=== PATIENT | female | born 1980 | race Caucasian/White ===

== ENCOUNTER → 2016-05-26 | Outpatient (CLI) | payer MEDICARE, MEDICAID ==
[~2016-05-26] MED LIST: /BACL20TA OR; /BUSP5TA OR; /DULO30CA OR; /ESOM40CA PO; /FENO14TA PO; /GLYB5TA OR; /METH500TA PO; /ROPI5TA PO; ABIL5TAB PO; AMBI10TA PO; AMBI5TAB PO; CIPR500T19 PO; COLA100C PO; COLA100C2 OR; COLA50CA3 PO; COMPOUND CREAM EXT; CRES20TA PO; DRIS50002 PO; EFFE37.527 PO; FENT12PA TOP; GABA300C2 PO; GABA400C PO; GABA800T PO; GLIP5TAB2 PO; GLUC1000 OR; GLYB25TA PO; GLYB5TAB5 PO; HUMUINJ IJ; HUMULIN NPH SQ; IBUP100SUS PO; IBUP600T OR; INSULANT SC; IRON65TA PO; LABE100T2 OR; LABE300T PO; LANTINJ4 SC; LEVA750T PO; LISI5TAB OR; MELO15TA3 PO; META800T82 PO; METF1000 PO; MORP15TA10 PO; MORP15TA2 PO; NEUR800T OR; NICO14PA EXT; OXYC15TA11 PO; OXYC15TA76 PO; PERC5TAB8 OR; PERC7.5T12 PO; PERCOCET PO; PNV OR; PROP20TA5 PO; PROZ20CA PO; REQU0.5T PO; SERO1TAB PO; SERO1TAB3 PO; SERO50TA PO; TRIA1CR TOP; TRIC145T PO; TYLENOL #3 OR; VICO5TAB OR; VICO5TAB PO; VICODINES TAB OR; WELCHOL PO; XANA0.5T PO; XANA1TAB2 PO; ZANA4TAB PO; [UNRECOGNIZED DRUG - OTHER] PO; ferrous sulfate PO; vibryd PO; zanax PO
[2016-05-26 11:03] LABS: BASO % 0.5 % (0.0-1.0); EOS # 0.3 K/mm3 (0.0-0.50); EOS % 3.1 % (0.0-3.0); LARGE UNSTAINED CELL # 0.1 K/mm3 (0.0-0.4); LARGE UNSTAINED CELL % 1.2 % (0.0-4.0); LYMPH # 2.2 K/mm3 (1.5-4.5); LYMPH % 22.2 % (24.0-44.0); MEAN CORPUSCULAR HEMOGLOBIN 26.2 pg (27.0-33.0); MEAN CORPUSCULAR HGB CONC 32.4 g/dl (32.0-36.5); MEAN CORPUSCULAR VOLUME 80.8 fl (80.0-96.0); MONO # 0.3 K/mm3 (0.0-0.8); MONO % 3.3 % (0.0-5.0); NEUTROPHILS % 69.8 % (36.0-66.0); PLATELET COUNT, AUTOMATED 228 k/mm3 (150-450); RED CELL DISTRIBUTION WIDTH 15.5 % (11.5-14.5)
[2016-05-26 11:25] LABS: ALBUMIN 3.5 GM/DL (3.2-5.2); ALKALINE PHOSPHATASE 99 U/L (45-117); ALT/SGPT 34 U/L (12-78); ANION GAP 8 MEQ/L (8-16); AST/SGOT 42 U/L (15-37); BILIRUBIN,TOTAL 0.4 MG/DL (0.2-1.0); BLOOD UREA NITROGEN 9 MG/DL (7-18); CALCIUM LEVEL 9.2 MG/DL (8.5-10.1); CARBON DIOXIDE LEVEL 29 MEQ/L (21-32); CHLORIDE LEVEL 103 MEQ/L (98-107); CREATININE FOR GFR 0.81 MG/DL (0.55-1.02); FERRITIN 11 NG/ML (8-252); GLOMERULAR FILTRATION RATE > 60.0 (>60); GLUCOSE, FASTING 249 MG/DL (70-105); PERCENT SATURATION 12.9 % (13.2-37.4); POTASSIUM SERUM 4.4 MEQ/L (3.5-5.1); SODIUM LEVEL 140 MEQ/L (136-145); TOTAL IRON BINDING CAPACITY 489 UG/DL (250-450)
== END ==
LOC: M LAB 10:38
PROVIDERS: ATTEND Physician Assistant
DX: E11.9 Type 2 diabetes mellitus without complications (principal); D50.9 Iron deficiency anemia, unspecified

== ENCOUNTER → 2016-06-11 | Outpatient (CLI) | payer MEDICARE, MEDICAID ==
--- NOTE | 2016-06-13 00:29 | ECWPNPC ---
PATIENT NAME: VASYL LEA : 1980 GENDER: FEMALE VISIT DATE: 06/11/2016 DISCHARGE DATE: 06/11/16 1131 VISIT LOCKED DATE TIME: PHYSICIAN: CAR PARADA RESOURCE: CAR PARADA REASON FOR APPOINTMENT 1. NECK/BACK HISTORY OF PRESENT ILLNESS TODAY'S VISIT: NOTES: HAS BEEN EXPERIENCING INCREASE IN PAIN RADIATING FROM NECK TO LOW BACK. ARMS FEEL WEAK AND IS DROPPING THINGS. SAW [facility] AND THEY ARE REQUESTING PT. NEED NEW REFERRAL TO THEM FOR THE BACK.RATES PAIN TODAY 9/10. DESCRIBES PAIN CONSTANT, ACHING, BURNING, TENDER, THROBBING SHOOTING AN SORE. PAIN IS CENTERED AT BASE OF NECK WITH RADIATION TO BOTH HANDS, AND CENTER LOW BACK WITH RADIATION TO BUTTUCKS AND DOWN BOTH LEGS TO FEET.. HISTORY OF PRESENT ILLNESS: PAIN THE PATIENT DESCRIBES THE PAIN... FALL RISK SCREENING: SCREENING :NO FALLS IN THE PAST YEAR CURRENT MEDICATIONS TAKING TRIAMCINOLONE ACETONIDE 0.1 % CREAM 1 APPLICATION TO AFFECTED AREA EXTERNALLY TWICE A DAY TAKING COLACE 100 MG CAPSULE 1 CAPSULE NEEDED ORALLY TWICE DAILY TAKING GABAPENTIN 800 MG TABLET 1 CAPSULE ORALLY THREE TIMES A DAY, NOTES: KENYAKER - NEURO TAKING SEROQUEL 50 MG TABLET 1 TABLET ORALLY TWICE A DAY, NOTES: 50 MG IN AM AND 100 MG AT NIGHT TAKING EFFEXOR XR 150 CAPSULE EXTENDED RELEASE 24 HOUR 1 CAPSULE WITH FOOD ORALLY ONCE A DAY TAKING ONE TOUCH ULTRA TEST STRIPS _ STRIPS DX: E11.9 _ TWICE DAILY AND NEEDED TAKING ONE TOUCH ULTRA TEST STRIPS DX 250.00 STRIPS DIRECTED - TWICE A DAY TAKING BD ULTRA-FINE PEN NEEDLES 32G 4MM _ DIRECTED DX: E11.9 WITH LANTUS PEN TAKING REQUIP 0.5 MG TABLET 3 TABS ORALLY ONCE A DAY BEFORE BEDTIME, NOTES: WALKER - PAIN TAKING FERROUS SULFATE 325 (65 FE) MG TABLET DELAYED RELEASE 1 TABLET ORALLY TWICE A DAY TAKING DRISDOL 77829 UNIT CAPSULE 1 CAPSULE ORALLY ONCE WEEKLY TAKING CRESTOR 40 MG TABLET 1 TABLET ORALLY ONCE A DAY TAKING GLIMEPIRIDE 1 MG TABLET 1 TABLET WITH BREAKFAST OR THE FIRST MAIN MEAL OF THE DAY ORALLY ONCE A DAY TAKING METFORMIN HCL 1000 MG TABLET 1 TABLET WITH MEALS ORALLY TWICE A DAY TAKING FENTANYL 12 MCG/HR PATCH 72 HOUR 1 PATCH TO SKIN TRANSDERMAL EVERY 72 HRS MDD=1 TAKING TIZANIDINE HCL 4 MG TABLET 1 TABLET NEEDED ORALLY EVERY 8 HRS TAKING OXYCODONE HCL 15 MG TABLET 1 TABLET NEEDED ORALLY EVERY 6 HRS MDD 4 TAKING LANTUS SOLOSTAR 100 UNIT/ML SOLUTION PEN-INJECTOR 70 UNITS SUBCUTANEOUS BEFORE BEDTIME TAKING HYDROXYZINE HCL 50 MG TABLET 75 MG NEEDED ORALLY EVERY 6 HRS NOT-TAKING TESSALON PERLES 100 MG CAPSULE 1 CAPSULE NEEDED ORALLY THREE TIMES A DAY NOT-TAKING VITAMIN D (ERGOCALCIFEROL) 35918 UNIT CAPSULE 1 CAPSULE ONCE WEEKLY ORALLY 4 WEEKS NOT-TAKING XANAX 0.5 MG TABLET 1 TABLET ORALLY Q12 HOURS PRN ANXIETY NOT-TAKING BACLOFEN 10 MG TABLET 1 TABLET WITH FOOD OR MILK ORALLY THREE TIMES A DAY, NOTES: NO LONGER TAKING MEDICATION LIST REVIEWED AND RECONCILED WITH THE PATIENT PAST MEDICAL HISTORY DM2 DEPRESSION/ANXIETY HYPERLIPIDEMIA CHRONIC BACK PAIN, FOLLOWS WITH PAINCLINIC, [facility] RECURRENT NEPHROLITHIASIS - URO MIGRAINES - 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 MORBID OBESITY NICOTINE DEP EKG 02/16 LAE, INCOMP RBBB CORDELIA 02/16 FEV1 2.65 FE DEF ANEMIA ALLERGIES PENICILLIN (FOR ALLERGIES USE ONLY): RASH: ALLERGY SOCIAL HISTORY GENERAL: TOBACCO USE ARE YOU A:NONSMOKER LEARNING BARRIERS / SPECIAL NEEDS ORIENTED TO PLAN OF CARE: PATIENT, PAIN MANAGEMENT PATIENT, ORIENTED TO PLAN OF CARE: PATIENT, PAIN MANAGEMENT PATIENT. NEW PATIENT PAIN DIARY TODAY'S VISITNOTES FROM 0-10, WHAT LEVEL IS YOUR PAIN TODAY?0 PAIN CLINIC PFS, CLERGY, PUBLIC HEALTH REFERRALS PFS REFERRAL NEEDED?NO CLERGY REFERRAL NEEDED?NO PUBLIC HEALTH REFERRAL NEEDED?NO WAS THE PROVIDER NOTIFIED OF ANY PERTINENT INFO?NO PFS REFERRAL NEEDED?NO CLERGY REFERRAL NEEDED?NO PUBLIC HEALTH REFERRAL NEEDED?NO WAS THE PROVIDER NOTIFIED OF ANY PERTINENT INFO?NO REVIEW OF SYSTEMS CONSTITUTIONAL: ANY CHANGE IN YOUR MEDICAL CONDITION? NO . CHILLS NO . FEVER NO . INFECTION: DO YOU HAVE NEW INFECTIONS? NO . DO YOU HAVE HISTORY OF MRSA? NO . MUSCULOSKELETAL: ANY NEW PATTERNS OF PAIN OR NUMBNESS? NO . GASTROENTEROLOGY: ANY NEW CHANGE IN BOWEL CONTROL? NO . GENITOURINARY: ANY NEW CHANGE IN BLADDER CONTROL? NO . IS THERE A CHANCE YOU COULD BE ? NO . HEMATOLOGY/LYMPH: DO YOU TAKE ANY BLOOD THINNERS? (FOR EXAMPLE- COUMADIN, PLAVIX, AGGRENOX, PLATEL, PRADAXA, OR XARELTO) NO . WHEN WAS YOUR LAST DOSE? DATE: TIME: . NEUROLOGY: HAVE YOU FALLEN IN THE PAST 6 MONTHS? NO . ANY NEW EXTREMITY NUMBNESS OR WEAKNESS? NO . CARDIOLOGY: DO YOU HAVE A PACEMAKER OR DEFIBRILLATOR? NO . RESPIRATORY: HAVE YOU BEEN SICK IN THE PAST WEEK? NO . FEVER NO . FLU LIKE SYMPTOMS? NO . COUGH NO . INTEGUMENTARY: DO YOU HAVE ANY RASHES OR OPEN SORES? NO . ALLERGIC/IMMUNO: ARE YOU ALLERGIC TO SHELLFISH OR IV DYE? NO . ANY NEW ALLERGIES? NO . PSYCHIATRIC: DO YOU HAVE THOUGHTS OF HURTING YOURSELF OR SOMEONE ELSE? NO . ARE YOU ABUSED, NEGLECTED, OR IN AN UNSAFE ENVIRONMENT? NO . ENDOCRINOLOGY: ARE YOU DIABETIC? NO . OTHER: DO YOU NEED ANY PRESCRIPTIONS? NO . IF YES, PLEASE LIST: ____ . ANY NEW PROBLEMS WITH YOUR MEDICATIONS? NO . WHEN DID YOU LAST EAT? ____ . WHEN DID YOU LAST DRINK? ____ . WHAT DID YOU LAST DRINK? ____ . NAME OF PERSON DRIVING YOU HOME? ____ . DO YOU HAVE ANY OTHER QUESTIONS OR CONCERNS NO . REVIEWED BY: PROVIDER: CAR SAEED . VITAL SIGNS WT 214.8 LBS, HT 66 IN, BMI 34.67 INDEX, BP 128/70 MM HG, HR 99 /MIN, RR 16 /MIN, TEMP 97.7 F, OXYGEN SAT % 99%, NA INITIALS SC 10:38, REVIEWED BY: ANTONY. EXAMINATION GENERAL EXAMINATION: PSYCHALERT , ORIENTED X 3 , APPROPRIATE MOOD AND AFFECT , TALKATIVE. LUNGS:BILATERAL MUSICAL WHEEZES, NO CRACKLES, BILATERAL RHONCHI. HEART:HEART RATE REGULAR. MUSCULOSKELETAL:MUSCLE STRENGTH TESTING 5/5 BILATERAL UPPER EXTREMITIES, AND 5-/5 IN BILATERAL LOWER EXTREMITIES. SLOW TO RISE TO STANDING POSITION. POSTURE STOOPED. GAIT SLOW, NONANTALGIC. POINT TENDERNESS OVER CERVICAL SPINOUS PROCESSES AND OVER LUBAR SPINOUS PROCESSES. , TRIGGER POINTS:, ELICITED WITH PALPATION OVER CERVICAL SPINOUS PROCESSES AND ACROSS THE TRAPEZIUS MUSCLES BILATERALLY. RESTRICTION OF ROM IS NOTED. ,. ASSESSMENTS MYALGIA - M79.1 (PRIMARY) RADICULOPATHY, LUMBOSACRAL REGION - M54.17 CHRONIC PRESCRIPTION OPIATE USE - Z79.899 CERVICALGIA - M54.2 OTHER CERVICAL DISC DISPLACEMENT AT C5-C6 LEVEL - M50.222 TREATMENT MYALGIA START CARISOPRODOL TABLET, 350 MG, 1 TABLET NEEDED, ORALLY, THREE TIMES A DAY MDD 3, 30 DAY(S), 90, REFILLS 1 REFILL FENTANYL PATCH 72 HOUR, 25 MCG/HR, 1 PATCH TO SKIN, TRANSDERMAL, EVERY 72 HRS MDD=1, 30 DAY(S), 10, REFILLS 0 TRIGGER POINT 3 + CAR ALFREDO 06/11/2016 10:50:38 AM > NECK, SHOULDER AND BACK NOTES: UTOX TODAY.,TRIGGER POINT INJECTION: YOUR EXPERIENCE MATERIAL WAS PRINTED. [facility] REASON:POST LAMINECTOMY NOW WITH INCREASING RADICULAR SYMPTOMS PROCEDURE CODES FA211 ESTABILISHED PATIENT [facility] CHARGE DISPOSITION & COMMUNICATION FOLLOW UP ONE MONTH ELECTRONICALLY SIGNED BY CHRISTOPHER GILLESPIE ON 06/12/2016 AT 06:38 PM EST DISCLAIMER : THIS IS A VISIT SUMMARY EXTRACTED FROM THE [employer] CHART. IT IS NOT A COPY OF THE [employer] PROGRESS NOTE. KAVON
== END ==
LOC: M PAIN 10:00
PROVIDERS: ATTEND Nurse Practitioner Family
DX: Z09 Encounter for follow-up examination after completed treatment for conditions other than malignant neoplasm (principal); G89.29 Other chronic pain; M79.1 Myalgia; M54.17 Radiculopathy, lumbosacral region; M50.222 Other cervical disc displacement at C5-C6 level; E11.9 Type 2 diabetes mellitus without complications; F32.9 Major depressive disorder, single episode, unspecified; F41.9 Anxiety disorder, unspecified; E78.5 Hyperlipidemia, unspecified; N20.0 Calculus of kidney; G43.909 Migraine, unspecified, not intractable, without status migrainosus; E66.9 Obesity, unspecified; D50.9 Iron deficiency anemia, unspecified; Z68.34 Body mass index [BMI] 34.0-34.9, adult; Z88.0 Allergy status to penicillin; Z79.01 Long term (current) use of anticoagulants; Z79.84 Long term (current) use of oral hypoglycemic drugs; Z79.891 Long term (current) use of opiate analgesic; Z79.899 Other long term (current) drug therapy; Z87.891 Personal history of nicotine dependence

== ENCOUNTER 2016-06-29 02:36 | Emergency (ER) | payer MEDICARE, MEDICAID ==
[~2016-06-29] VITALS: Ht 167.6 cm; Wt 98.0 kg
[~2016-06-29 02:36] MED LIST changes: -COLA100C PO; +COLA100C3 PO
[2016-06-29] MEDS ORDERED: PERCOCET 5MG/325MG TAB PO ONE (04:00)
--- NOTE | 2016-06-29 04:20 | REPUSA ---
HISTORY: Trauma. COMPARISON: Not provided. TECHNIQUE: Multiple thin section helically-acquired axially-displayed and helically acquired coronall y displayed computed tomographic images of the face are obtained from the mandible through the fronta l sinuses, with images obtained at soft tissue and bone window. 2D reformatted images were performed. FINDINGS: Soft tissue edema and swelling of the upper lid. Normal bony mineralization. No fractures. Normal orbits. Normal, clear paranasal sinuses. Normal oral and nasal cavities. Normal infratemporal fossa and deep parapharyngeal spaces with normal muscles of mastication. Normal parotid and submandibular glands. IMPRESSION: No acute bone pathology. Thank you for your kind referral of this patient
[2016-06-29 04:59] VITALS: BP 123/58
== END 2016-06-29 05:05 | disposition home or self-care (01) ==
LOC: M ED 03:19
DX: S00.83XA Contusion of other part of head, initial encounter (principal); W18.00XA Striking against unspecified object with subsequent fall, initial encounter; Y92.9 Unspecified place or not applicable; Y93.01 Activity, walking, marching and hiking; Y99.9 Unspecified external cause status; R42 Dizziness and giddiness; Z91.81 History of falling; Z79.899 Other long term (current) drug therapy; Z88.0 Allergy status to penicillin

== ENCOUNTER → 2016-09-23 | Outpatient (CLI) | payer MEDICARE, MEDICAID ==
[~2016-09-23] MED LIST changes: +BUPIVACAINE HCL 0.25% 10 ML VIAL As Ordered ONE; +BUPIVACAINE HCL 0.25% 30 ML VIAL As Ordered ONE; -COLA100C3 PO; +COLA100C5 PO; +CYCL10TA PO; -LEVA750T PO; +LEVA750T7 PO; +METF10004 PO; -REQU0.5T PO; +REQU1TAB15 PO; +TRIAMCINOLONE ACETONIDE SUSP 40 MG/ML VIAL (J3301) As Ordered ONE; -TRIC145T PO; +TRIC145T22 PO; +VICT18IN
--- NOTE | 2016-10-06 23:29 | ECWPNPC ---
PATIENT NAME: VASYL LEA : 1980 GENDER: FEMALE VISIT DATE: 09/23/2016 DISCHARGE DATE: 09/23/16 1001 VISIT LOCKED DATE TIME: PHYSICIAN: NHAN POWELL RESOURCE: NHAN POWELL REASON FOR APPOINTMENT 1. NECK AND BACK HISTORY OF PRESENT ILLNESS HISTORY OF PRESENT ILLNESS: PAIN THE PATIENT DESCRIBES THE PAIN... FALL RISK SCREENING: SCREENING :NO FALLS IN THE PAST YEAR CURRENT MEDICATIONS TAKING TRIAMCINOLONE ACETONIDE 0.1 % CREAM 1 APPLICATION TO AFFECTED AREA EXTERNALLY TWICE A DAY NEEDED, NOTES: NONE RECENTLY TAKING GABAPENTIN 800 MG TABLET 1 CAPSULE ORALLY THREE TIMES A DAY, NOTES: TRICKER - NEURO 09/23/16729 TAKING SEROQUEL 50 MG TABLET 1 TABLET ORALLY TWICE A DAY, NOTES: 50 MG IN AM AND 100 MG AT NIGHT 09/23/16729 TAKING EFFEXOR XR 150 CAPSULE EXTENDED RELEASE 24 HOUR 1 CAPSULE WITH FOOD ORALLY ONCE A DAY, NOTES: 09/23/16729 TAKING ONE TOUCH ULTRA TEST STRIPS _ STRIPS DX: E11.9 _ TWICE DAILY AND NEEDED TAKING ONE TOUCH ULTRA TEST STRIPS DX 250.00 STRIPS DIRECTED - TWICE A DAY TAKING BD ULTRA-FINE PEN NEEDLES 32G 4MM _ DIRECTED DX: E11.9 WITH LANTUS PEN TAKING REQUIP 0.5 MG TABLET 3 TABS ORALLY ONCE A DAY BEFORE BEDTIME, NOTES: WALKER - PAIN 09/22/16 2100 TAKING GLIMEPIRIDE 1 MG TABLET 1 TABLET WITH BREAKFAST OR THE FIRST MAIN MEAL OF THE DAY ORALLY ONCE A DAY, NOTES: 09/22/16729 TAKING METFORMIN HCL 1000 MG TABLET 1 TABLET WITH MEALS ORALLY TWICE A DAY, NOTES: 09/22/161799 TAKING HYDROXYZINE HCL 50 MG TABLET 75 MG NEEDED ORALLY EVERY 6 HRS, NOTES: 09/23/16729 TAKING CRESTOR 40 MG TABLET 1 TABLET ORALLY ONCE A DAY, NOTES: 09/22/161799 TAKING CYCLOBENZAPRINE HCL 10 MG TABLET 1 TABLET NEEDED ORALLY THREE TIMES A DAY, NOTES: 09/22/161799 TAKING FENTANYL 25 MCG/HR PATCH 72 HOUR 1 PATCH TO SKIN TRANSDERMAL EVERY 72 HRS MDD=1, NOTES: 09/22/161799 TAKING DRISDOL 24562 UNIT CAPSULE 1 CAPSULE ORALLY ONCE WEEKLY, NOTES: 09/21/16729 TAKING COLACE 100 MG CAPSULE 1 CAPSULE NEEDED ORALLY TWICE DAILY, NOTES: 2-3 DAYS AGO TAKING LANTUS SOLOSTAR 100 UNIT/ML SOLUTION PEN-INJECTOR 70 UNITS SUBCUTANEOUS BEFORE BEDTIME, NOTES: 2-3 DAYS AGO TAKING OXYCODONE HCL 15 MG TABLET 1 TABLET NEEDED ORALLY EVERY 6 HRS MDD 4, NOTES: 09/23/16 0730 TAKING EFFEXOR XR 37.5 MG CAPSULE EXTENDED RELEASE 24 HOUR 1 CAPSULE WITH FOOD ORALLY ONCE A DAY, NOTES: 09/23/16 0730 NOT-TAKING AQUAPHOR - OINTMENT DIRECTED EXTERNALLY BID NOT-TAKING DOXYCYCLINE MONOHYDRATE 100 MG CAPSULE 1 CAPSULE ORALLY EVERY 12 HRS MEDICATION LIST REVIEWED AND RECONCILED WITH THE PATIENT PAST MEDICAL HISTORY DM2 DEPRESSION/ANXIETY HYPERLIPIDEMIA CHRONIC BACK PAIN, FOLLOWS WITH PAINCLINIC, SMC RECURRENT NEPHROLITHIASIS - URO MIGRAINES - 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 MORBID OBESITY NICOTINE DEP EKG 02/16 LAE, INCOMP RBBB CORDELIA 02/16 FEV1 2.65 FE DEF ANEMIA ALLERGIES PENICILLIN (FOR ALLERGIES USE ONLY): RASH: ALLERGY ENVIRONMENTAL: NASAL CONGESTION: ALLERGY SURGICAL HISTORY CHOLECYSTECTOMY 2002 C SECTION 2 BACK SURGERY 12/2009 TUBAL LIGATION 2011 L ESWL - CARRIE 04/06/13 KIDNEY STONE 09/2014 SOCIAL HISTORY GENERAL: TOBACCO USE ARE YOU A:CURRENT SMOKER HOW MANY CIGARETTES A DAY DO YOU SMOKE?11-20 HOW SOON AFTER YOU WAKE UP DO YOU SMOKE YOUR FIRST CIGARETTE?WITHIN 5 MIN HOW OFTEN DO YOU SMOKE CIGARETTES?EVERY DAY PATIENT COUNSELED ON THE DANGERS OF TOBACCO USE AND URGED TO QUIT:05/27/2016 ARE YOU INTERESTED IN QUITTING?NOT READY TO QUIT COUNSELED THE PATIENT ON SMOKING EFFECTS, EDUCATION [id number]/22/2017 BMI CARE GOAL FOLLOW-UP ABOVE NORMAL BMI FOLLOW-UPDIETARY MANAGEMENT EDUCATION, GUIDANCE, AND COUNSELING ALCOHOL SCREENING DID YOU HAVE A DRINK CONTAINING ALCOHOL IN THE PAST YEAR?NO POINTS0 INTERPRETATIONNEGATIVE RECREATIONAL DRUG USE DRUG USE?NO CAFFEINE CAFFEINE USE?YES HOW OFTEN AND HOW MUCH? 2 CUPS PER DAY SEXUAL HX HAD SEX IN THE LAST 12 MONTHS (VAGINAL, ORAL, OR ANAL)?NO HAVE YOU EVER HAD AN STD?NO LMP:07/20/16 OCCUPATION: DISABLED. DIET: CARBOHYDRATE CONTROLLED. EXERCISE: NO REGULAR EXERCISE. MARITAL STATUS: . TENRIISM [id number] YAZIDISM LANGUAGE LANGUAGES SPOKEN:[employer] EDUCATION LEVEL OF EDUCATION:[employer] 8TH GRADE LEARNING BARRIERS / SPECIAL NEEDS CHANGE FROM LAST VISIT?NO BARRIERS TO LEARNING?YES COMMENTS READING HEARING IMPAIRED?NO VISION IMPAIRED?YES :CORRECTIVE LENSES COGNITIVELY IMPAIRED?NO READINESS TO LEARN?YES LEARNING PREFERENCES?YES :TAPES/VIDEOS, BOOKLETS, HANDOUTS, CLASSES, DEMONSTRATION/VERBAL INSTRUCTION, OTHER (PLEASE COMMENT) LEARNING CAPABILITIES PRESENT?YES EMOTIONAL BARRIERS?NO SPECIAL DEVICES?NO ENGINE REPAIRER SERVICE NEEDED?NO NEW PATIENT PAIN DIARY TODAY'S VISIT NOTES, FROM 0-10, WHAT LEVEL IS YOUR PAIN TODAY? 0. PAIN CLINIC PFS, CLERGY, PUBLIC HEALTH REFERRALS PFS REFERRAL NEEDED? NO, CLERGY REFERRAL NEEDED? NO, PUBLIC HEALTH REFERRAL NEEDED? NO, WAS THE PROVIDER NOTIFIED OF ANY PERTINENT INFO? NO, PFS REFERRAL NEEDED? NO, CLERGY REFERRAL NEEDED? NO, PUBLIC HEALTH REFERRAL NEEDED? NO, WAS THE PROVIDER NOTIFIED OF ANY PERTINENT INFO? NO. TRAVEL OUTSIDE US: NO. DOMESTIC VIOLENCE NONE. HOSPITALIZATION/MAJOR DIAGNOSTIC PROCEDURE SURGERY RELATED REVIEW OF SYSTEMS REVIEWED BY: PROVIDER: . CONSTITUTIONAL: ANY CHANGE IN YOUR MEDICAL CONDITION? NO . CHILLS NO . FEVER NO . INFECTION: DO YOU HAVE NEW INFECTIONS? NO . DO YOU HAVE HISTORY OF MRSA? NO . MUSCULOSKELETAL: ANY NEW PATTERNS OF PAIN OR NUMBNESS? NO . GASTROENTEROLOGY: ANY NEW CHANGE IN BOWEL CONTROL? NO . GENITOURINARY: ANY NEW CHANGE IN BLADDER CONTROL? NO . IS THERE A CHANCE YOU COULD BE ? NO . HEMATOLOGY/LYMPH: DO YOU TAKE ANY BLOOD THINNERS? (FOR EXAMPLE- COUMADIN, PLAVIX, AGGRENOX, PLATEL, PRADAXA, OR XARELTO) NO . WHEN WAS YOUR LAST DOSE? DATE: TIME: . NEUROLOGY: HAVE YOU FALLEN IN THE PAST 6 MONTHS? YES . ANY NEW EXTREMITY NUMBNESS OR WEAKNESS? NO . CARDIOLOGY: DO YOU HAVE A PACEMAKER OR DEFIBRILLATOR? NO . RESPIRATORY: HAVE YOU BEEN SICK IN THE PAST WEEK? NO . FEVER NO . FLU LIKE SYMPTOMS? NO . COUGH NO . INTEGUMENTARY: DO YOU HAVE ANY RASHES OR OPEN SORES? NO . ALLERGIC/IMMUNO: ARE YOU ALLERGIC TO SHELLFISH OR IV DYE? NO . ANY NEW ALLERGIES? NO . PSYCHIATRIC: DO YOU HAVE THOUGHTS OF HURTING YOURSELF OR SOMEONE ELSE? NO . ARE YOU ABUSED, NEGLECTED, OR IN AN UNSAFE ENVIRONMENT? NO . ENDOCRINOLOGY: ARE YOU DIABETIC? YES . OTHER: DO YOU NEED ANY PRESCRIPTIONS? NO . IF YES, PLEASE LIST: ____ . ANY NEW PROBLEMS WITH YOUR MEDICATIONS? NO . WHEN DID YOU LAST EAT? 2300 . WHEN DID YOU LAST DRINK? 0100 . WHAT DID YOU LAST DRINK? WATER . NAME OF PERSON DRIVING YOU HOME? ARIANNA LEA . DO YOU HAVE ANY OTHER QUESTIONS OR CONCERNS NO . VITAL SIGNS WT 203.4 LBS, HT 66 IN, BMI 32.83 INDEX, BP 123/69 MM HG, HR 103 /MIN, RR 18 /MIN, TEMP 97.8 F, OXYGEN SAT % 95%, NA INITIALS SC 08:56, REVIEWED BY: LS. ASSESSMENTS MYALGIA - M79.1 (PRIMARY) PROCEDURES PN TRIGGER POINT INJECTION WITH STEROIDS PRE PROCEDURE DIAGNOSIS 1. MYALGIA 2. PAIN AT BILATERAL THORACIC AREA AND BILATERAL LOW BACK AREA POST PROCEDURE DIAGNOSIS 1. MYALGIA 2. PAIN AT BILATERAL THORACIC AREA AND BILATERAL LOW BACK AREA PROCEDURE TRIGGER POINT INJECTION AT BILATERAL THORACIC AREA AND BILATERAL LOW BACK AREA SURGEON DR. NHAN POWELL CITY CLERK NONE ANESTHESIA LOCAL PRE PROCEDURE NOTE THE PATIENT HAS A HISTORY OF CHRONIC PAIN AT THE RIGHT AND LEFT THORACIC AREA AND RIGHT AND LEFT LOW BACK AREA. I EVALUATE THE PATIENT AND REVIEWED THE CHART. THERE IS EVIDENCE OF BANDS OF TISSUE WITH RESTRICTION OF MOVEMENT AND PRESENCE OF TRIGGER POINT AT THE AFFECTED AREA. I WENT OVER THE RISKS, ALTERNATIVES, AND BENEFITS ASSOCIATED WITH THIS PROCEDURE. THE PATIENT WOULD LIKE TO PROCEED AND GIVE CONSENT TO PERFORMED THE PROCEDURE. THE PATIENT DENIES UNEXPLAINABLE WEIGHT LOSS, FEVER, CHILLS, OR NEW CHANGES IN URINARY OR BOWEL CONTROL DESCRIPTION OF PROCEDURE THE PATIENT WAS BROUGHT TO THE PROCEDURE ROOM AND PLACED IN THE SITTING POSITION. THE AREA WAS CLEANED WITH ALCOHOL. THE PROCEDURE WAS DONE USING ASEPTIC STERILE TECHNIQUE. I CHECKED LATERALITY AND THE LEVEL WHERE THE PROCEDURE WAS GOING TO BE PERFORMED WITH THE PATIENT AND THE SUPPORTING STAFF AT THE MOMENT OF THE TIME OUT IN THE PROCEDURE ROOM. USING A 25-GAUGE NEEDLE, TRIGGER POINTS WERE INJECTED AT THE RIGHT AND LEFT THORACIC AREA AND RIGHT AND LEFT LOW BACK AREA WITH A TOTAL OF 40 ML OF BUPIVACAINE 0.25% AND KENALOG 40 MG. THERE WAS NO EVIDENCE OF BLOOD, PARESTHESIA OR CEREBROSPINAL FLUID DURING THE PROCEDURE. THE PATIENT WAS SENT TO THE RECOVERY ROOM. THE PATIENT WAS MOVING THE EXTREMITIES AND DOING WELL. THERE WAS NO COMPLICATION DURING THE PROCEDURE POST PROCEDURE NOTE THE PATIENT WILL BE SEEN IN A FOLLOW UP IN THE NEXT FEW WEEKS. INSTRUCTIONS WERE GIVEN, QUESTIONS WERE ANSWERED, AND THE PATIENT EXPRESSED UNDERSTANDING AND AGREES WITH THE PLAN. I, ART RATLIFF, DOCUMENTED THE ABOVE INFORMATION ACTING A SCRIBE FOR DR. POWELL. I HAVE REVIEWED THE ABOVE DOCUMENT, WRITTEN BY ART RATLIFF SCRIBEfrain AND I VERIFY THAT IT IS ACCURATE PROCEDURE CODES 58831 INJECT TRIGGER POINTS 3/> DISPOSITION & COMMUNICATION FOLLOW UP 3 WEEKS ELECTRONICALLY SIGNED BY NHAN POWELL MD ON 10/06/2016 AT 09:55 PM EDT DISCLAIMER : THIS IS A VISIT SUMMARY EXTRACTED FROM THE [employer] CHART. IT IS NOT A COPY OF THE [email or web address] PROGRESS NOTE. KAVON
== END ==
LOC: M PAIN 08:30
PROVIDERS: ATTEND Anesthesiology
DX: G89.29 Other chronic pain (principal); M79.1 Myalgia; E11.9 Type 2 diabetes mellitus without complications; F32.9 Major depressive disorder, single episode, unspecified; F41.9 Anxiety disorder, unspecified; E78.5 Hyperlipidemia, unspecified; G43.909 Migraine, unspecified, not intractable, without status migrainosus; E66.01 Morbid (severe) obesity due to excess calories; F17.210 Nicotine dependence, cigarettes, uncomplicated; D50.9 Iron deficiency anemia, unspecified; J30.9 Allergic rhinitis, unspecified; M51.17 Intervertebral disc disorders with radiculopathy, lumbosacral region; M50.10 Cervical disc disorder with radiculopathy, unspecified cervical region; Z88.0 Allergy status to penicillin; Z79.84 Long term (current) use of oral hypoglycemic drugs; Z79.891 Long term (current) use of opiate analgesic; Z79.4 Long term (current) use of insulin; Z79.899 Other long term (current) drug therapy
CPT/HCPCS: 20553; J3301

== ENCOUNTER → 2016-10-05 | Outpatient (CLI) | payer MEDICARE, MEDICAID ==
[~2016-10-05] MED LIST changes: -BUPIVACAINE HCL 0.25% 10 ML VIAL As Ordered ONE; -BUPIVACAINE HCL 0.25% 30 ML VIAL As Ordered ONE; -TRIAMCINOLONE ACETONIDE SUSP 40 MG/ML VIAL (J3301) As Ordered ONE
[2016-10-05 20:45] LABS: CALCIUM LEVEL 10.6 MG/DL (8.5-10.1); CREATININE FOR GFR 2.07 MG/DL (0.55-1.02); POTASSIUM SERUM 3.7 MEQ/L (3.5-5.1)
--- NOTE | 2016-10-06 09:47 | REP ---
Clinical: Acute renal failure. Technique: Real time khan scale ultrasound examination using curved array transducer. Findings: The bilateral kidneys are normal in reniform shape and size without hydronephrosis, nephrolithiasis, cystic or renal mass lesion. Increased echogenicity to the renal pyramids may reflect medullary sponge kidney and correlation may be warranted. Right kidney measures 13.7 x 5.5 x 4.6 cm. Left kidney measures 13.2 x 5.3 x 5.6 cm. The bladder is normal in appearance and currently measures 8.8 x 6.6 x 5.2 cm. A right ureteral jet into the bladder is noted without left ureteral jet which is a nonspecific finding. Impression: No hydronephrosis. Prominent echogenicity to the renal pyramids is nonspecific, but differential diagnosis includes medullary sponge kidney and may warrant followup evaluation. Signed by Jacob Sibley MD 10/06/2016 09:39 A
== END ==
LOC: M LAB 17:17
PROVIDERS: ATTEND Physician Assistant
DX: N17.9 Acute kidney failure, unspecified (principal)

== ENCOUNTER → 2016-10-05 | Outpatient (CLI) | payer MEDICARE, MEDICAID ==
[2016-10-05 07:47] LABS: BASO # 0.1 K/mm3 (0.0-0.2); BASO % 0.6 % (0.0-1.0); EOS # 0.3 K/mm3 (0.0-0.50); EOS % 2.2 % (0.0-3.0); LARGE UNSTAINED CELL # 0.2 K/mm3 (0.0-0.4); LARGE UNSTAINED CELL % 1.3 % (0.0-4.0); LYMPH # 3.6 K/mm3 (1.5-4.5); LYMPH % 28.4 % (24.0-44.0); MEAN CORPUSCULAR HEMOGLOBIN 26.6 pg (27.0-33.0); MEAN CORPUSCULAR HGB CONC 32.5 g/dl (32.0-36.5); MEAN CORPUSCULAR VOLUME 81.9 fl (80.0-96.0); MONO # 0.7 K/mm3 (0.0-0.8); MONO % 5.5 % (0.0-5.0); NEUTROPHILS # 7.5 K/mm3 (1.8-7.7); PLATELET COUNT, AUTOMATED 202 k/mm3 (150-450); RED CELL DISTRIBUTION WIDTH 14.7 % (11.5-14.5); WHITE BLOOD COUNT 12.1 K/mm3 (4.0-10.0)
[2016-10-05 08:16] LABS: ALBUMIN 3.6 GM/DL (3.2-5.2); ALBUMIN/GLOBULIN RATIO 1.13 (1.00-1.93); BILIRUBIN,TOTAL 0.5 MG/DL (0.2-1.0); CALCIUM LEVEL 9.9 MG/DL (8.5-10.1); CREATININE FOR GFR 2.09 MG/DL (0.55-1.02); GLOMERULAR FILTRATION RATE 28.7 (>60); POTASSIUM SERUM 3.8 MEQ/L (3.5-5.1); TOTAL PROTEIN 6.8 GM/DL (6.4-8.2)
[2016-10-05 19:14] LABS: CALCIUM OXALATE CRYSTALS LARGE
== END ==
LOC: M LAB 07:16
PROVIDERS: ATTEND Physician Assistant
DX: D50.9 Iron deficiency anemia, unspecified (principal); N17.9 Acute kidney failure, unspecified; E11.9 Type 2 diabetes mellitus without complications; Z79.899 Other long term (current) drug therapy; E55.9 Vitamin D deficiency, unspecified
CPT/HCPCS: 36415; 76775; 80053; 80061; 81001; 81002; 82306; 83036; 85025; 87086; G0463

== ENCOUNTER 2016-10-07 06:27 | Emergency (ER) | payer MEDICARE, MEDICAID ==
[~2016-10-07 06:27] MED LIST changes: -CYCL10TA PO; -VICT18IN
[2016-10-07] MEDS ORDERED: CYCL10TA PO (06:41)
[2016-10-07] MEDS ORDERED: LIDOCAINE 2% W/EPIN INJ 20ML **PRES FREE INJ ONE (07:30)
--- NOTE | 2016-10-07 08:11 | REP ---
Clinical: Trauma. Technique: AP, lateral, bilateral oblique and sunrise views of the right and left knee. Comparison: 02/28/2012. Findings: Mild degenerative changes are appreciated bilaterally including increased sclerosis to the posterior patellar margins with decreased patellofemoral joint space as well as mild increase sclerosis to the tibial plateau. No acute fracture or dislocation. No obvious effusion. Impression: Mild degenerative changes. Signed by Jacob Sibley MD 10/07/2016 08:03 A
[2016-10-07 08:51] VITALS: BP 128/70
== END 2016-10-07 08:52 | disposition home or self-care (01) ==
LOC: M ED 06:27
DX: S81.012A Laceration without foreign body, left knee, initial encounter (principal); X58.XXXA Exposure to other specified factors, initial encounter; Y92.099 Unspecified place in other non-institutional residence as the place of occurrence of the external cause; Y93.01 Activity, walking, marching and hiking; Y99.9 Unspecified external cause status; E11.9 Type 2 diabetes mellitus without complications; G89.29 Other chronic pain; F17.200 Nicotine dependence, unspecified, uncomplicated; Z79.4 Long term (current) use of insulin; Z79.899 Other long term (current) drug therapy; Z88.0 Allergy status to penicillin

== ENCOUNTER → 2016-10-09 | Outpatient (REF) | payer MEDICARE, MEDICAID ==
[~2016-10-09] MED LIST changes: +CYCL10TA PO; +VICT18IN
[2016-10-09 14:24] LABS: ANION GAP 9 MEQ/L (8-16); BLOOD UREA NITROGEN 9 MG/DL (7-18); CALCIUM LEVEL 9.3 MG/DL (8.5-10.1); CARBON DIOXIDE LEVEL 30 MEQ/L (21-32); CHLORIDE LEVEL 106 MEQ/L (98-107); CREATININE FOR GFR 0.76 MG/DL (0.55-1.02); GLOMERULAR FILTRATION RATE > 60.0 (>60); GLUCOSE, FASTING 146 MG/DL (70-105); POTASSIUM SERUM 3.9 MEQ/L (3.5-5.1); SODIUM LEVEL 145 MEQ/L (136-145)
== END ==
LOC: M SFHCPLAZ 11:13
PROVIDERS: ATTEND Family Medicine
DX: R79.89 Other specified abnormal findings of blood chemistry (principal)
CPT/HCPCS: 36415; 80048; 90471; 90714; G0463

== ENCOUNTER → 2016-10-12 | Outpatient (CLI) | payer MEDICARE, MEDICAID ==
--- NOTE | 2016-10-12 23:11 | ECWPNPC ---
PATIENT NAME: VASYL LEA : 1980 GENDER: FEMALE VISIT DATE: 10/12/2016 DISCHARGE DATE: 10/12/16 0950 VISIT LOCKED DATE TIME: PHYSICIAN: CAR PARADA RESOURCE: CAR PARADA REASON FOR APPOINTMENT 1. NECK/BACK HISTORY OF PRESENT ILLNESS HISTORY OF PRESENT ILLNESS: PAIN THE PATIENT DESCRIBES THE PAIN... FALL RISK SCREENING: SCREENING :NO FALLS IN THE PAST YEAR TODAY'S VISIT: NOTES: S/P THORACIC TRIGGER POINT INJECTIONS ON STEROIDS COMPLETED ON 09/23/16 . NOTES HAD SOME RELIEF AFTER A FEW DAYS BUT MOSTLY IS NOTING IMPROVEMENT IN FLEXION AND EXTENSION AND IN BEING ABLE TO ARTURO A DEEP BREATH. RATES PAIN TODAY 10/12. HAD RECENT FALL WITH STITCHES TO LEFT KNEE. SLEEP IS AFFECTED. HAD RECENT LABS WHICH SHOWED KIDNEY FAILURE - WILL BE SEEING DR DURAN.. CURRENT MEDICATIONS TAKING TRIAMCINOLONE ACETONIDE 0.1 % CREAM 1 APPLICATION TO AFFECTED AREA EXTERNALLY TWICE A DAY NEEDED, NOTES: NONE RECENTLY TAKING GABAPENTIN 800 MG TABLET 1 CAPSULE ORALLY THREE TIMES A DAY, NOTES: TRICKER - NEURO 09/23/16729 TAKING SEROQUEL 50 MG TABLET 1 TABLET ORALLY TWICE A DAY, NOTES: 50 MG IN AM AND 100 MG AT NIGHT 09/23/16729 TAKING ONE TOUCH ULTRA TEST STRIPS _ STRIPS DX: E11.9 _ TWICE DAILY AND NEEDED TAKING ONE TOUCH ULTRA TEST STRIPS DX 250.00 STRIPS DIRECTED - TWICE A DAY TAKING BD ULTRA-FINE PEN NEEDLES 32G 4MM _ DIRECTED DX: E11.9 WITH LANTUS PEN TAKING REQUIP 0.5 MG TABLET 3 TABS ORALLY ONCE A DAY BEFORE BEDTIME, NOTES: WALKER - PAIN 09/22/16 2100 TAKING HYDROXYZINE HCL 50 MG TABLET 75 MG NEEDED ORALLY EVERY 6 HRS, NOTES: 09/23/16 07 TAKING CRESTOR 40 MG TABLET 1 TABLET ORALLY ONCE A DAY, NOTES: 09/22/16 1800 TAKING DRISDOL 68572 UNIT CAPSULE 1 CAPSULE ORALLY ONCE WEEKLY, NOTES: 09/21/16 0730 TAKING COLACE 100 MG CAPSULE 1 CAPSULE NEEDED ORALLY TWICE DAILY, NOTES: 2-3 DAYS AGO TAKING LANTUS SOLOSTAR 100 UNIT/ML SOLUTION PEN-INJECTOR 70 UNITS SUBCUTANEOUS BEFORE BEDTIME, NOTES: 2-3 DAYS AGO TAKING OXYCODONE HCL 15 MG TABLET 1 TABLET NEEDED ORALLY EVERY 6 HRS MDD 4, NOTES: 09/23/16 0730 TAKING CYCLOBENZAPRINE HCL 10 MG TABLET 1 TABLET NEEDED ORALLY THREE TIMES A DAY TAKING NICODERM CQ 21 MG/24HR PATCH 24 HOUR 1 PATCH TO SKIN TRANSDERMAL ONCE A DAY TAKING FENTANYL 25 MCG/HR PATCH 72 HOUR 1 PATCH TO SKIN TRANSDERMAL EVERY 72 HRS MDD=1 TAKING FLUCONAZOLE 150 MG TABLET 1 TABLET ORALLY DAILY TAKING VENLAFAXINE HCL ER 75 MG CAPSULE EXTENDED RELEASE 24 HOUR 1 CAPSULE WITH FOOD ORALLY ONCE A DAY, NOTES: TAKE WITH 150 MG CAPSULE FOR TOTAL OF 225 MG DAILY. TAKING VENLAFAXINE HCL ER 150 MG CAPSULE EXTENDED RELEASE 24 HOUR 1 CAPSULE WITH FOOD ORALLY ONCE A DAY, NOTES: TAKE WITH 75 MG CAPSULE FOR TOTAL OF 225 MG DAILY TAKING VICTOZA 18 MG/3ML SOLUTION PEN-INJECTOR 0.6 MG SUBCUTANEOUS ONCE A DAY TAKING PEN NEEDLES 31G X 8 MM MISCELLANEOUS DIRECTED SUBCUTANEOUSLY DAILY WITH VICTOZA PEN. DX: Z79.4 NOT-TAKING AQUAPHOR - OINTMENT DIRECTED EXTERNALLY BID NOT-TAKING DOXYCYCLINE MONOHYDRATE 100 MG CAPSULE 1 CAPSULE ORALLY EVERY 12 HRS PAST MEDICAL HISTORY DM2 DEPRESSION/ANXIETY HYPERLIPIDEMIA CHRONIC BACK PAIN, FOLLOWS WITH PAINCLINIC, [facility] RECURRENT NEPHROLITHIASIS - URO MIGRAINES - 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 MORBID OBESITY NICOTINE DEP EKG 02/16 LAE, INCOMP RBBB CORDELIA 02/16 FEV1 2.65 FE DEF ANEMIA ALLERGIES PENICILLIN (FOR ALLERGIES USE ONLY): RASH: ALLERGY ENVIRONMENTAL: NASAL CONGESTION: ALLERGY REVIEW OF SYSTEMS FOLLOW-UP ROS: PSYCHOLOGY: POSITIVE FOR, ANXIETY, SIGN FAMILY ISSUES AND RESPONSIBILITIES . REVIEWED BY: PROVIDER: CAR SAEED . CONSTITUTIONAL: ANY CHANGE IN YOUR MEDICAL CONDITION? YES, QUIT SMOKING TODAY . CHILLS NO . FEVER NO . INFECTION: DO YOU HAVE NEW INFECTIONS? NO . DO YOU HAVE HISTORY OF MRSA? NO . MUSCULOSKELETAL: ANY NEW PATTERNS OF PAIN OR NUMBNESS? NO . GASTROENTEROLOGY: ANY NEW CHANGE IN BOWEL CONTROL? NO . GENITOURINARY: ANY NEW CHANGE IN BLADDER CONTROL? NO . IS THERE A CHANCE YOU COULD BE ? NO . HEMATOLOGY/LYMPH: DO YOU TAKE ANY BLOOD THINNERS? (FOR EXAMPLE- COUMADIN, PLAVIX, AGGRENOX, PLATEL, PRADAXA, OR XARELTO) NO . WHEN WAS YOUR LAST DOSE? DATE: TIME: . NEUROLOGY: HAVE YOU FALLEN IN THE PAST 6 MONTHS? YES, END OF THIS WEEKEND. CUT OPEN LEFT KNEE - NEEDED STITCHES (PRIMARY CARE IS WATCHING THIS). 11 STITCHES . ANY NEW EXTREMITY NUMBNESS OR WEAKNESS? NO . CARDIOLOGY: DO YOU HAVE A PACEMAKER OR DEFIBRILLATOR? NO . RESPIRATORY: HAVE YOU BEEN SICK IN THE PAST WEEK? NO . FEVER NO . FLU LIKE SYMPTOMS? NO . COUGH NO . INTEGUMENTARY: DO YOU HAVE ANY RASHES OR OPEN SORES? NO . ALLERGIC/IMMUNO: ARE YOU ALLERGIC TO SHELLFISH OR IV DYE? NO . ANY NEW ALLERGIES? NO . PSYCHIATRIC: DO YOU HAVE THOUGHTS OF HURTING YOURSELF OR SOMEONE ELSE? NO . ARE YOU ABUSED, NEGLECTED, OR IN AN UNSAFE ENVIRONMENT? NO . ENDOCRINOLOGY: ARE YOU DIABETIC? YES . OTHER: DO YOU NEED ANY PRESCRIPTIONS? NO . IF YES, PLEASE LIST: ____ . ANY NEW PROBLEMS WITH YOUR MEDICATIONS? NO . WHEN DID YOU LAST EAT? ____ . WHEN DID YOU LAST DRINK? ____ . WHAT DID YOU LAST DRINK? ____ . NAME OF PERSON DRIVING YOU HOME? ____ . DO YOU HAVE ANY OTHER QUESTIONS OR CONCERNS NEED TO TALK TO YOU ABOUT MUSCLE RELAXER . VITAL SIGNS WT 201.0 LBS, HT 66 IN, BMI 32.44 INDEX, BP 116/67 MM HG, HR 95 /MIN, RR 16 /MIN, TEMP 97.1 F, OXYGEN SAT % 96%, NA INITIALS TL 0908, REVIEWED BY: NL. EXAMINATION GENERAL EXAMINATION: PSYCHALERT , ORIENTED X 3 , APPROPRIATE MOOD AND AFFECT , TALKATIVE. LUNGS:BILATERAL WHEEZES, ABLE TO TAKE DEEP BREATH TODAY.. HEART:HEART RATE REGULAR. MUSCULOSKELETAL:MUSCLE STRENGTH TESTING 5/5 BILATERAL UPPER EXTREMITIES, AND 5-/5 IN BILATERAL LOWER EXTREMITIES. SLOW TO RISE TO STANDING POSITION. POSTURE UPRIGHT. GAIT SLOW, NONANTALGIC. POINT TENDERNESS OVER CERVICAL SPINOUS PROCESSES AND OVER LUMBAR SPINOUS PROCESSES. , TRIGGER POINTS:, ELICITED WITH PALPATION OVER ACROSS THE TRAPEZIUS MUSCLES BILATERALLY. . SKIN:HEALING SEMICIRCULAR LACERATION WITH SUTURES LEFT KNEE. . ASSESSMENTS MYALGIA - M79.1 (PRIMARY) CHRONIC PRESCRIPTION OPIATE USE - Z79.899 LUMBAR DISC DISEASE WITH RADICULOPATHY - M51.16 TREATMENT MYALGIA STOP CYCLOBENZAPRINE HCL TABLET, 10 MG, 1 TABLET NEEDED, ORALLY, THREE TIMES A DAY START SOMA TABLET, 250 MG, 1 TABLET NEEDED, ORALLY, BID, 30 DAY(S), 60 TABLET, REFILLS 1 NOTES: CONTINUE CURRENT MED. CLINICAL NOTES: ISTOP REGISTRY REVIEWED AND DEMNOSTRATES COMPLLIANCE. BRINGS IN MEDICATIONS WHICH IS APPROPRIATE FOR WHAT WAS DISPENSED. RECENT URINE TOXICOLOGY REVIEWED. NO UNAUTHORIZED MEDICATIONS. NO ILLICIT SUBSTANCES AND PRESCRIBED MEDICATIONS WERE PRESENT. PREVENTIVE MEDICINE GAVE INFORMATION ON SOMA WITH PT UNDERSTANDING VERBALIZED. PROCEDURE CODES FA211 ESTABILISHED PATIENT [facility] CHARGE G8730 PAIN ASSESS POS TOOL F/U PLAN DOC G8427 DOC MEDS VERIFIED W/PT OR RE DISPOSITION & COMMUNICATION FOLLOW UP 2 MONTHS (REASON: BACK PAIN) ELECTRONICALLY SIGNED BY CHRISTOPHER GILLESPIE ON 10/12/2016 AT 12:29 PM EDT DISCLAIMER : THIS IS A VISIT SUMMARY EXTRACTED FROM THE [employer] CHART. IT IS NOT A COPY OF THE [employer] PROGRESS NOTE. KAVON
== END ==
LOC: M PAIN 09:00
PROVIDERS: ATTEND Nurse Practitioner Family
DX: G89.29 Other chronic pain (principal); M79.1 Myalgia; M51.16 Intervertebral disc disorders with radiculopathy, lumbar region; E11.9 Type 2 diabetes mellitus without complications; F32.9 Major depressive disorder, single episode, unspecified; F41.9 Anxiety disorder, unspecified; E78.4 Other hyperlipidemia; G43.909 Migraine, unspecified, not intractable, without status migrainosus; E66.9 Obesity, unspecified; E55.9 Vitamin D deficiency, unspecified; F17.200 Nicotine dependence, unspecified, uncomplicated; Z68.32 Body mass index [BMI] 32.0-32.9, adult; Z88.0 Allergy status to penicillin; J30.89 Other allergic rhinitis; Z79.4 Long term (current) use of insulin; Z79.891 Long term (current) use of opiate analgesic; Z79.899 Other long term (current) drug therapy

== ENCOUNTER 2016-10-17 20:17 | Emergency (ER) | payer MEDICARE, MEDICAID ==
[~2016-10-17] VITALS: Ht 167.6 cm; Wt 93.8 kg
[~2016-10-17 20:17] MED LIST changes: -VICT18IN
[2016-10-17] MEDS ORDERED: VICT18IN (20:23)
[2016-10-17] MEDS ORDERED: KETOROLAC 60 MG/2 ML VIAL (J1885) IM ONE (21:15)
[2016-10-17 22:02] VITALS: BP 119/76
--- NOTE | 2016-10-18 07:27 | REP ---
AP pelvis and right hip: AP pelvis: There is no pelvic fracture. Sacroiliac articulations and right and left hip articulations are unremarkable. There ligation clips in the pelvis bilaterally. There are pelvic calcifications inferiorly bilaterally, likely phleboliths. Impression: No pelvic fracture. Right hip two views: There is no fracture or dislocation. No femoral head deformity. No calcifications or foreign bodies. No acetabular fracture. Impression: Negative right hip Signed by Wicho Reilly MD 10/18/2016 07:18 A
== END 2016-10-17 22:09 | disposition home or self-care (01) ==
LOC: M ED 20:17
DX: S80.02XA Contusion of left knee, initial encounter (principal); M25.551 Pain in right hip; W01.10XA Fall on same level from slipping, tripping and stumbling with subsequent striking against unspecified object, initial encounter; Y92.099 Unspecified place in other non-institutional residence as the place of occurrence of the external cause; Y93.9 Activity, unspecified; Y99.9 Unspecified external cause status; E11.9 Type 2 diabetes mellitus without complications; G43.909 Migraine, unspecified, not intractable, without status migrainosus; E78.00 Pure hypercholesterolemia, unspecified; F41.9 Anxiety disorder, unspecified; F32.9 Major depressive disorder, single episode, unspecified; G89.29 Other chronic pain; M54.9 Dorsalgia, unspecified; E66.01 Morbid (severe) obesity due to excess calories; Z96.0 Presence of urogenital implants; F17.200 Nicotine dependence, unspecified, uncomplicated; Z79.4 Long term (current) use of insulin; Z79.899 Other long term (current) drug therapy; Z88.0 Allergy status to penicillin
CPT/HCPCS: 73502; 96372; 99283; J1885

== ENCOUNTER → 2016-12-15 | Outpatient (CLI) | payer MEDICARE, MEDICAID ==
[~2016-12-15] MED LIST changes: +VICT18IN
--- NOTE | 2016-12-31 00:08 | ECWPNPC ---
PATIENT NAME: VASYL LEA : 1980 GENDER: FEMALE VISIT DATE: 12/15/2016 DISCHARGE DATE: 12/15/16 1202 VISIT LOCKED DATE TIME: PHYSICIAN: CAR PARADA RESOURCE: CAR PARADA REASON FOR APPOINTMENT 1. NECK AND BACK HISTORY OF PRESENT ILLNESS HISTORY OF PRESENT ILLNESS: PAIN THE PATIENT DESCRIBES THE PAIN... FALL RISK SCREENING: SCREENING :NO FALLS IN THE PAST YEAR TODAY'S VISIT: NOTES: RATES PAIN TODAY 10. NOTES PAIN IS ACHING BURNING, TENDER, THROBBING AND SORE. NOTES IS NOT SLEEPINGNOTES PAIN OVER RIGHT HIP. IN GENERAL PAIN MEDS ARE HELPING AND ALLOW HER TO FUNCTION . DENIES ANY ADVERSE EFFECTS FROM HER MEDS.. CURRENT MEDICATIONS TAKING TRIAMCINOLONE ACETONIDE 0.1 % CREAM 1 APPLICATION TO AFFECTED AREA EXTERNALLY TWICE A DAY NEEDED TAKING GABAPENTIN 800 MG TABLET 1 CAPSULE ORALLY THREE TIMES A DAY TAKING ONE TOUCH ULTRA TEST STRIPS _ STRIPS DX: E11.9 _ TWICE DAILY AND NEEDED TAKING ONE TOUCH ULTRA TEST STRIPS DX 250.00 STRIPS DIRECTED - TWICE A DAY TAKING BD ULTRA-FINE PEN NEEDLES 32G 4MM _ DIRECTED DX: E11.9 WITH LANTUS PEN TAKING REQUIP 0.5 MG TABLET 3 TABS ORALLY ONCE A DAY BEFORE BEDTIME TAKING DRISDOL 29600 UNIT CAPSULE 1 CAPSULE ORALLY ONCE WEEKLY TAKING COLACE 100 MG CAPSULE 1 CAPSULE NEEDED ORALLY TWICE DAILY TAKING NICODERM CQ 21 MG/24HR PATCH 24 HOUR 1 PATCH TO SKIN TRANSDERMAL ONCE A DAY TAKING VENLAFAXINE HCL ER 75 MG CAPSULE EXTENDED RELEASE 24 HOUR 1 CAPSULE WITH FOOD ORALLY ONCE A DAY, NOTES: TAKE WITH 150 MG CAPSULE FOR TOTAL OF 225 MG DAILY. TAKING VENLAFAXINE HCL ER 150 MG CAPSULE EXTENDED RELEASE 24 HOUR 1 CAPSULE WITH FOOD ORALLY ONCE A DAY, NOTES: TAKE WITH 75 MG CAPSULE FOR TOTAL OF 225 MG DAILY TAKING VICTOZA 18 MG/3ML SOLUTION PEN-INJECTOR 0.6 MG SUBCUTANEOUS ONCE A DAY TAKING PEN NEEDLES 31G X 8 MM MISCELLANEOUS DIRECTED SUBCUTANEOUSLY DAILY WITH VICTOZA PEN. DX: Z79.4 TAKING LISINOPRIL 2.5 MG TABLET 1 TABLET ORALLY ONCE A DAY TAKING KNEE BRACE/HINGED BARS LARGE - MISCELLANEOUS DIRECTED L KNEE. DX:S81.012 WITH DEHISCENCE DAILY TAKING CRESTOR 40 MG TABLET 1 TABLET ORALLY ONCE A DAY TAKING HYDROXYZINE HCL 50 MG TABLET 75 MG NEEDED ORALLY EVERY 6 HRS TAKING SEROQUEL 50 MG TABLET 1 TABLET ORALLY TWICE A DAY TAKING OXYCODONE HCL 15 MG TABLET 1 TABLET NEEDED ORALLY EVERY 6 HRS MDD 4 TAKING LANTUS SOLOSTAR 100 UNIT/ML SOLUTION PEN-INJECTOR 75 UNITS SUBCUTANEOUS BEFORE BEDTIME TAKING GLIMEPIRIDE 1 MG TABLET 1 TABLET WITH BREAKFAST OR THE FIRST MAIN MEAL OF THE DAY ORALLY ONCE A DAY TAKING FENTANYL 25 MCG/HR PATCH 72 HOUR 1 PATCH TO SKIN TRANSDERMAL EVERY 72 HRS MDD=1 TAKING CYCLOBENZAPRINE HCL 10 MG TABLET 1 TABLET NEEDED ORALLY THREE TIMES A DAY NOT-TAKING FLUCONAZOLE 150 MG TABLET 1 TABLET ORALLY DAILY NOT-TAKING SOMA 250 MG TABLET 1 TABLET NEEDED ORALLY BID NOT-TAKING AQUAPHOR - OINTMENT DIRECTED EXTERNALLY BID NOT-TAKING DOXYCYCLINE MONOHYDRATE 100 MG CAPSULE 1 CAPSULE ORALLY EVERY 12 HRS MEDICATION LIST REVIEWED AND RECONCILED WITH THE PATIENT PAST MEDICAL HISTORY DM2 DEPRESSION/ANXIETY HYPERLIPIDEMIA CHRONIC BACK PAIN, FOLLOWS WITH PAINCLINIC, [facility] RECURRENT NEPHROLITHIASIS - URO MIGRAINES - 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 MORBID OBESITY NICOTINE DEP EKG 02/16 LAE, INCOMP RBBB CORDELIA 02/16 FEV1 2.65 FE DEF ANEMIA ALLERGIES PENICILLIN (FOR ALLERGIES USE ONLY): RASH: ALLERGY ENVIRONMENTAL: NASAL CONGESTION: ALLERGY SOCIAL HISTORY GENERAL: TOBACCO USE ARE YOU A:CURRENT SMOKER HOW MANY CIGARETTES A DAY DO YOU SMOKE?11-20 HOW SOON AFTER YOU WAKE UP DO YOU SMOKE YOUR FIRST CIGARETTE?WITHIN 5 MIN HOW OFTEN DO YOU SMOKE CIGARETTES?EVERY DAY PATIENT COUNSELED ON THE DANGERS OF TOBACCO USE AND URGED TO QUIT:11/10/2016 ARE YOU INTERESTED IN QUITTING?THINKING ABOUT QUITTING COUNSELED THE PATIENT ON SMOKING CESSATION, EDUCATION [id number]/08/2017 BMI CARE GOAL FOLLOW-UP ABOVE NORMAL BMI FOLLOW-UPDIETARY MANAGEMENT EDUCATION, GUIDANCE, AND COUNSELING ALCOHOL SCREENING DID YOU HAVE A DRINK CONTAINING ALCOHOL IN THE PAST YEAR?NO POINTS0 INTERPRETATIONNEGATIVE RECREATIONAL DRUG USE DRUG USE?NO CAFFEINE CAFFEINE USE?YES HOW OFTEN AND HOW MUCH? 2 CUPS PER DAY SEXUAL HX HAD SEX IN THE LAST 12 MONTHS (VAGINAL, ORAL, OR ANAL)?NO HAVE YOU EVER HAD AN STD?NO LMP:07/20/16 HIV / HEP-C SCREENING HIV TEST OFFERED TO PATIENT:YES DATE OFFERED:05/27/2016 TEST ACCEPTED:NO REASON:PATIENT DECLINED HEP-C TEST OFFERED TO PATIENT:YES N/A DATE OFFERED:10/09/2016 TEST ACCEPTED:NO REASON:PATIENT DECLINED OCCUPATION: DISABLED. DIET: CARBOHYDRATE CONTROLLED. EXERCISE: NO REGULAR EXERCISE. MARITAL STATUS: . ZOROASTRIANISM [id number] CONGREGATIONAL LANGUAGE LANGUAGES SPOKEN:TURKMEN EDUCATION LEVEL OF EDUCATION:[employer] 8TH GRADE LEARNING BARRIERS / SPECIAL NEEDS CHANGE FROM LAST VISIT?NO BARRIERS TO LEARNING?YES COMMENTS READING HEARING IMPAIRED?NO VISION IMPAIRED?YES :CORRECTIVE LENSES COGNITIVELY IMPAIRED?NO READINESS TO LEARN?YES LEARNING PREFERENCES?YES :TAPES/VIDEOS, BOOKLETS, HANDOUTS, CLASSES, DEMONSTRATION/VERBAL INSTRUCTION, OTHER (PLEASE COMMENT) LEARNING CAPABILITIES PRESENT?YES EMOTIONAL BARRIERS?NO SPECIAL DEVICES?NO CIVIL ENGINEERING TECHNICIAN NEEDED?NO NEW PATIENT PAIN DIARY TODAY'S VISIT NOTES, FROM 0-10, WHAT LEVEL IS YOUR PAIN TODAY? 0. PAIN CLINIC PFS, CLERGY, PUBLIC HEALTH REFERRALS PFS REFERRAL NEEDED?NO CLERGY REFERRAL NEEDED?NO PUBLIC HEALTH REFERRAL NEEDED?NO HAS THE PATIENT BEEN EDUCATED REGARDING HIS/HER PLAN OF CARE?YES HAS THE PATIENT BEEN EDUCATED REGARDING PAIN, THE RISK FOR PAIN, THE IMPORTANCE OF EFFECTIVE PAIN MANAGEMENT, AND THE PAIN ASSESSMENT PROCESS?YES TRAVEL OUTSIDE US: NO. DOMESTIC VIOLENCE NONE. REVIEW OF SYSTEMS REVIEWED BY: PROVIDER: CAR SAEED . CONSTITUTIONAL: ANY CHANGE IN YOUR MEDICAL CONDITION? NO . CHILLS NO . FEVER NO . INFECTION: DO YOU HAVE NEW INFECTIONS? NO . DO YOU HAVE HISTORY OF MRSA? NO . MUSCULOSKELETAL: ANY NEW PATTERNS OF PAIN OR NUMBNESS? NO . GASTROENTEROLOGY: ANY NEW CHANGE IN BOWEL CONTROL? NO . GENITOURINARY: ANY NEW CHANGE IN BLADDER CONTROL? NO . IS THERE A CHANCE YOU COULD BE ? NO . HEMATOLOGY/LYMPH: DO YOU TAKE ANY BLOOD THINNERS? (FOR EXAMPLE- COUMADIN, PLAVIX, AGGRENOX, PLATEL, PRADAXA, OR XARELTO) NO . WHEN WAS YOUR LAST DOSE? DATE: TIME: . NEUROLOGY: HAVE YOU FALLEN IN THE PAST 6 MONTHS? YES . ANY NEW EXTREMITY NUMBNESS OR WEAKNESS? NO . CARDIOLOGY: DO YOU HAVE A PACEMAKER OR DEFIBRILLATOR? NO . RESPIRATORY: HAVE YOU BEEN SICK IN THE PAST WEEK? NO . FEVER NO . FLU LIKE SYMPTOMS? NO . COUGH NO . INTEGUMENTARY: DO YOU HAVE ANY RASHES OR OPEN SORES? NO . ALLERGIC/IMMUNO: ARE YOU ALLERGIC TO SHELLFISH OR IV DYE? NO . ANY NEW ALLERGIES? NO . PSYCHIATRIC: DO YOU HAVE THOUGHTS OF HURTING YOURSELF OR SOMEONE ELSE? NO . ARE YOU ABUSED, NEGLECTED, OR IN AN UNSAFE ENVIRONMENT? NO . ENDOCRINOLOGY: ARE YOU DIABETIC? YES - CHANGED FROM METFORMIN TO VICTOZA AND INSUIN. IS NOW ABLE TO USE LOSE WEIGHT . OTHER: DO YOU NEED ANY PRESCRIPTIONS? YES . IF YES, PLEASE LIST: OXYCODONE . ANY NEW PROBLEMS WITH YOUR MEDICATIONS? NO . WHEN DID YOU LAST EAT? ____ . WHEN DID YOU LAST DRINK? ____ . WHAT DID YOU LAST DRINK? ____ . NAME OF PERSON DRIVING YOU HOME? ____ . DO YOU HAVE ANY OTHER QUESTIONS OR CONCERNS NO . PSYCHOLOGY: PATIENT COMPLAINING OF SLEEP WALKING - HAS HAD NUMEROUS FALLS WITH INJURIES . VITAL SIGNS WT 200.6 LBS, HT 66 IN, BMI 32.37 INDEX, BP 125/66 MM HG, HR 100 /MIN, RR 16 /MIN, TEMP 97.3 F, OXYGEN SAT % 94%, NA INITIALS SC 11:22, REVIEWED BY: JO. EXAMINATION GENERAL EXAMINATION: PSYCHALERT , ORIENTED X 3 , APPROPRIATE MOOD AND AFFECT , TALKATIVE. LUNGS:BILATERAL WHEEZES, ABLE TO TAKE DEEP BREATH TODAY.. HEART:HEART RATE REGULAR. MUSCULOSKELETAL:MUSCLE STRENGTH TESTING 5/5 BILATERAL UPPER EXTREMITIES, AND 5-/5 IN BILATERAL LOWER EXTREMITIES. SLOW TO RISE TO STANDING POSITION. POSTURE UPRIGHT. GAIT SLOW, NONANTALGIC. POINT TENDERNESS OVER CERVICAL SPINOUS PROCESSES AND OVER LUMBAR SPINOUS PROCESSES. , TRIGGER POINTS:, ELICITED WITH PALPATION OVER ACROSS THE TRAPEZIUS MUSCLES BILATERALLY. . ASSESSMENTS MYALGIA - M79.1 (PRIMARY) LUMBAR POST-LAMINECTOMY SYNDROME - M96.1 TREATMENT MYALGIA STOP SOMA TABLET, 250 MG, 1 TABLET NEEDED, ORALLY, BID START TIZANIDINE HCL TABLET, 4 MG, 1/2 - 1 TABLET NEEDED, ORALLY, THREE TIMES A DAY, 30 DAY(S), 90, REFILLS 3 REFILL REQUIP TABLET, 0.5 MG, 3 TABS, ORALLY, ONCE A DAY BEFORE BEDTIME, 30 DAY(S), 90, REFILLS 5 REFILL OXYCODONE HCL TABLET, 15 MG, 1 TABLET NEEDED, ORALLY, EVERY 6 HRS MDD 4, 30 DAY(S), 120, REFILLS 0 [facility] MRI LS SPINE W/O AND WITH [id number] [employer] 12/15/2016 11:47:25 AM > INCREASING RADICULAR PAIN NOTES: CONTINUE CURRENT MEDS, ISTOP REGISTRY REVIEWED AND DEMNOSTRATES COMPLLIANCE. (#[id number] BRINGS IN MEDICATIONS WHICH IS APPROPRIATE FOR WHAT WAS DISPENSED. RECENT URINE TOXICOLOGY REVIEWED. NO UNAUTHORIZED MEDICATIONS. NO ILLICIT SUBSTANCES AND PRESCRIBED MEDICATIONS WERE PRESENT. PREVENTIVE MEDICINE PAIN CLINIC TEACHING: MEDICATIONS TIZANIDINE TEACHING DONE. ADDITIONAL INFORMATION GIVEN. QUESTIONS ANSWERED AND PATIENT VERBALIZES UNDERSTANDING.. PROCEDURE CODES FA211 ESTABILISHED PATIENT [facility] CHARGE G8730 PAIN ASSESS POS TOOL F/U PLAN DOC G8427 DOC MEDS VERIFIED W/PT OR RE DISPOSITION & COMMUNICATION FOLLOW UP 2 MONTHS (REASON: CHECK AUTH FOR LUMBAR MRI WITH AND WITHOUT CONTRASTBACK PAIN) ELECTRONICALLY SIGNED BY CHRISTOPHER GILLESPIE ON 12/30/2016 AT 08:31 AM EDT DISCLAIMER : THIS IS A VISIT SUMMARY EXTRACTED FROM THE [employer] CHART. IT IS NOT A COPY OF THE [employer] PROGRESS NOTE. KAVON
== END ==
LOC: M PAIN 11:00
PROVIDERS: ATTEND Nurse Practitioner Family
DX: M96.1 Postlaminectomy syndrome, not elsewhere classified (principal); M79.1 Myalgia; F17.210 Nicotine dependence, cigarettes, uncomplicated; E11.9 Type 2 diabetes mellitus without complications; E78.4 Other hyperlipidemia; E55.9 Vitamin D deficiency, unspecified; E66.9 Obesity, unspecified; F32.9 Major depressive disorder, single episode, unspecified; F41.9 Anxiety disorder, unspecified; Q61.5 Medullary cystic kidney; Z68.32 Body mass index [BMI] 32.0-32.9, adult; Z88.0 Allergy status to penicillin; J30.89 Other allergic rhinitis; Z79.4 Long term (current) use of insulin; Z79.891 Long term (current) use of opiate analgesic; Z79.899 Other long term (current) drug therapy

== ENCOUNTER → 2017-03-23 | Outpatient (CLI) | payer MEDICARE, MEDICAID ==
[~2017-03-23] MED LIST changes: +CLEO300C2 PO; +NORCOTAB PO; +TIZA4CAP3
[2017-03-23 14:04] LABS: ALBUMIN 3.5 GM/DL (3.2-5.2); ANION GAP 6 MEQ/L (8-16); BLOOD UREA NITROGEN 7 MG/DL (7-18); CALCIUM LEVEL 8.9 MG/DL (8.5-10.1); CARBON DIOXIDE LEVEL 27 MEQ/L (21-32); CHLORIDE LEVEL 108 MEQ/L (98-107); GLOMERULAR FILTRATION RATE > 60.0 (>60); GLUCOSE, FASTING 188 MG/DL (70-105); POTASSIUM SERUM 4.1 MEQ/L (3.5-5.1); SODIUM LEVEL 141 MEQ/L (136-145)
== END ==
LOC: M LAB 12:48
PROVIDERS: ATTEND Nurse Practitioner Family
DX: M51.16 Intervertebral disc disorders with radiculopathy, lumbar region (principal)

== ENCOUNTER 2017-03-29 16:40 | Emergency (ER) | payer MEDICARE, MEDICAID ==
[2017-03-29] MEDS: CLINDAMYCIN 150 MG CAP PO (17:43)
[2017-03-29] MEDS: NORCO 5/325MG TABLET (BULK FOR ED) PO (17:44)
== END 2017-03-29 17:47 | disposition home or self-care (01) ==
LOC: M ED 16:40
DX: K04.7 Periapical abscess without sinus (principal); E11.9 Type 2 diabetes mellitus without complications; F17.210 Nicotine dependence, cigarettes, uncomplicated; Z79.2 Long term (current) use of antibiotics; Z79.899 Other long term (current) drug therapy; Z88.0 Allergy status to penicillin; Z86.69 Personal history of other diseases of the nervous system and sense organs; Z86.79 Personal history of other diseases of the circulatory system; Z87.442 Personal history of urinary calculi
CPT/HCPCS: 99282

== ENCOUNTER 2017-04-03 10:21 | Emergency (ER) | payer MEDICARE, MEDICAID ==
[2017-04-03] MEDS: PERCOCET 5MG/325MG TAB PO ×2 (10:45)
== END 2017-04-03 10:51 | disposition home or self-care (01) ==
LOC: M ED 10:21
DX: K04.7 Periapical abscess without sinus (principal); E11.9 Type 2 diabetes mellitus without complications; F17.200 Nicotine dependence, unspecified, uncomplicated
CPT/HCPCS: 99282

== ENCOUNTER → 2017-04-26 | Outpatient (CLI) | payer MEDICARE, MEDICAID | LOC: M PAIN 13:45 | DX: M79.1 Myalgia (principal); M96.1 Postlaminectomy syndrome, not elsewhere classified; M46.96 Unspecified inflammatory spondylopathy, lumbar region; E11.9 Type 2 diabetes mellitus without complications; E78.5 Hyperlipidemia, unspecified; F17.210 Nicotine dependence, cigarettes, uncomplicated; Z79.891 Long term (current) use of opiate analgesic; Z79.899 Other long term (current) drug therapy; Z79.4 Long term (current) use of insulin; Z88.0 Allergy status to penicillin; J30.2 Other seasonal allergic rhinitis | CPT/HCPCS: G0463 ==

== ENCOUNTER 2017-05-05 22:38 | Emergency (ER) | payer MEDICARE, MEDICAID ==
[2017-05-05] MEDS: CLINDAMYCIN 150 MG CAP PO (23:35)
== END 2017-05-05 23:46 | disposition home or self-care (01) ==
LOC: M ED 22:38
DX: K02.9 Dental caries, unspecified (principal); K04.7 Periapical abscess without sinus; E11.9 Type 2 diabetes mellitus without complications; I10 Essential (primary) hypertension; F17.200 Nicotine dependence, unspecified, uncomplicated
CPT/HCPCS: 99283

== ENCOUNTER → 2017-05-18 | Outpatient (CLI) | payer MEDICARE, MEDICAID ==
[2017-05-18 14:14] LABS: ESTIMATED AVERAGE GLUCOSE 214 MG/DL (60-110); HEMOGLOBIN A1c 9.1 %
[2017-05-18 14:18] LABS: ALBUMIN 3.6 GM/DL (3.2-5.2); ALBUMIN/GLOBULIN RATIO 1.06 (1.00-1.93); ALKALINE PHOSPHATASE 123 U/L (45-117); ALT/SGPT 24 U/L (12-78); ANION GAP 6 MEQ/L (8-16); AST/SGOT 15 U/L (7-37); BILIRUBIN,TOTAL 0.3 MG/DL (0.2-1.0); BLOOD UREA NITROGEN 7 MG/DL (7-18); CALCIUM LEVEL 9.6 MG/DL (8.5-10.1); CARBON DIOXIDE LEVEL 28 MEQ/L (21-32); CHLORIDE LEVEL 108 MEQ/L (98-107); CREATININE FOR GFR 0.77 MG/DL (0.55-1.30); GLOMERULAR FILTRATION RATE > 60.0 (>60); GLUCOSE, FASTING 190 MG/DL (70-100); POTASSIUM SERUM 4.5 MEQ/L (3.5-5.1); SODIUM LEVEL 142 MEQ/L (136-145)
== END ==
LOC: M LAB 13:10
DX: E11.9 Type 2 diabetes mellitus without complications (principal)
CPT/HCPCS: 80053

== ENCOUNTER 2017-08-06 19:23 | Emergency (ER) | payer MEDICARE, MEDICAID ==
[2017-08-06 19:53] LABS: BASO # 0.1 10^3/uL (0.0-0.2); BASO % 0.5 % (0.0-1.0); EOS # 0.2 10^3/uL (0.0-0.50); EOS % 1.8 % (0.0-3.0); HEMATOCRIT 39.1 % (36.0-47.0); IMMATURE GRANULOCYTE % 0.3 % (0-3.0); LYMPH # 2.2 10^3/uL (1.5-4.5); LYMPH % 17.2 % (24.0-44.0); MEAN CORPUSCULAR HGB CONC 30.7 g/dl (32.0-36.5); MEAN CORPUSCULAR VOLUME 81.5 fl (80.0-96.0); MONO # 0.6 10^3/uL (0.0-0.8); MONO % 4.8 % (0.0-5.0); NEUTROPHILS # 9.6 10^3/uL (1.8-7.7); NEUTROPHILS % 75.4 % (36.0-66.0); PLATELET COUNT, AUTOMATED 297 10^3/uL (150-450); RED CELL DISTRIBUTION WIDTH 15.5 % (11.5-14.5); WHITE BLOOD COUNT 12.8 10^3/uL (4.0-10.0)
[2017-08-06] MEDS: NS 1,000 ML IV (19:55)
[2017-08-06] MEDS: KETOROLAC 30 MG/ML VIAL (J1885) IV (19:56)
[2017-08-06] MEDS: ONDANSETRON 4MG/2ML VIAL (J2405) IV (19:56)
[2017-08-06 20:09] LABS: KETONE, URINE AUTO RFX NEGATIVE (NEGATIVE); LEUKOCYTE ESTERASE UR AUTO RFX NEGATIVE (NEGATIVE); NITRITE, URINE AUTO RFX NEGATIVE (NEGATIVE); RBC, URINE AUTO RFX 1 /HPF (0-3); SPECIFIC GRAVITY UR AUTO RFX 1.031 (1.002-1.035); SQUAM EPITHELIAL CELL UR AURFX 7 /HPF (0-6); WBC, URINE AUTO RFX 2 /HPF (0-3)
[2017-08-06 20:21] LABS: ALBUMIN 3.5 GM/DL (3.2-5.2); ALKALINE PHOSPHATASE 96 U/L (45-117); ALT/SGPT 25 U/L (12-78); ANION GAP 5 MEQ/L (8-16); AST/SGOT 18 U/L (7-37); BILIRUBIN,DIRECT < 0.1 MG/DL (0.0-0.2); BILIRUBIN,TOTAL 0.3 MG/DL (0.2-1.0); BLOOD UREA NITROGEN 7 MG/DL (7-18); CARBON DIOXIDE LEVEL 28 MEQ/L (21-32); CHLORIDE LEVEL 107 MEQ/L (98-107); CREATININE FOR GFR 0.96 MG/DL (0.55-1.30); GLOMERULAR FILTRATION RATE > 60.0 (>60); GLUCOSE, FASTING 245 MG/DL (70-100); LIPASE 308 U/L (73-393); POTASSIUM SERUM 4.3 MEQ/L (3.5-5.1); SODIUM LEVEL 140 MEQ/L (136-145); TOTAL PROTEIN 7.4 GM/DL (6.4-8.2)
[2017-08-06] MEDS: HYDROmorphone HCL 1 MG/ML SYRINGE (J1170) IV (20:24)
[2017-08-06] MEDS ORDERED: ISOVUE-370 76% 100ML VIAL (Q9967) As Ordered (20:58)
[2017-08-06] MEDS: diphenhydrAMINE INJ 50MG/ML VIAL (J1200) IV (20:59)
== END 2017-08-06 22:08 | disposition home or self-care (01) ==
LOC: M ED 19:23
DX: K52.9 Noninfective gastroenteritis and colitis, unspecified (principal); N83.202 Unspecified ovarian cyst, left side; N29 Other disorders of kidney and ureter in diseases classified elsewhere; M51.37 Other intervertebral disc degeneration, lumbosacral region; E11.9 Type 2 diabetes mellitus without complications; Z87.442 Personal history of urinary calculi; F41.9 Anxiety disorder, unspecified; F32.9 Major depressive disorder, single episode, unspecified; G43.909 Migraine, unspecified, not intractable, without status migrainosus; F17.200 Nicotine dependence, unspecified, uncomplicated; Z79.4 Long term (current) use of insulin; Z79.899 Other long term (current) drug therapy; Z88.0 Allergy status to penicillin
CPT/HCPCS: J1170

== ENCOUNTER → 2017-08-24 | Outpatient (CLI) | payer MEDICARE, MEDICAID | LOC: M PAIN 13:30 | DX: M79.1 Myalgia (principal); M51.16 Intervertebral disc disorders with radiculopathy, lumbar region; M96.1 Postlaminectomy syndrome, not elsewhere classified; E11.9 Type 2 diabetes mellitus without complications; F32.9 Major depressive disorder, single episode, unspecified; F41.9 Anxiety disorder, unspecified; E78.5 Hyperlipidemia, unspecified; G43.909 Migraine, unspecified, not intractable, without status migrainosus; F17.210 Nicotine dependence, cigarettes, uncomplicated; F51.3 Sleepwalking [somnambulism]; J30.89 Other allergic rhinitis; E66.01 Morbid (severe) obesity due to excess calories; Z68.34 Body mass index [BMI] 34.0-34.9, adult; Z79.4 Long term (current) use of insulin; Z79.899 Other long term (current) drug therapy; Z88.0 Allergy status to penicillin; Z91.81 History of falling | CPT/HCPCS: G0463 ==

== ENCOUNTER → 2017-10-13 | Outpatient (CLI) | payer MEDICARE, MEDICAID ==
[2017-10-13 12:02] LABS: ERYTHROCYTE SEDIMENTATION RATE 45 mm/hr (0-20)
[2017-10-13 14:33] LABS: C REACTIVE PROTEIN QUANTITATIV < 0.30 MG/DL (0.00-0.30)
[2017-10-13 14:33] LABS: HCG, SERUM QUANTITATIVE < 1.0 MIU/ML
[2017-10-13 16:20] LABS: ESTIMATED AVERAGE GLUCOSE 197 MG/DL (60-110); HEMOGLOBIN A1c 8.5 %
[2017-10-14 14:44] LABS: ANTINUCLEAR ANTIBODIES DIRECT Negative (Negative)
== END ==
LOC: M LAB 10:54
DX: M13.0 Polyarthritis, unspecified (principal); Z79.899 Other long term (current) drug therapy
CPT/HCPCS: 83036

== ENCOUNTER → 2017-11-01 | Outpatient (CLI) | payer MEDICARE, MEDICAID ==
[~2017-11-01] MED LIST changes: -/BACL20TA OR; -/BUSP5TA OR; -/DULO30CA OR; -/ESOM40CA PO; -/FENO14TA PO; -/GLYB5TA OR; -/METH500TA PO; -/ROPI5TA PO; -ABIL5TAB PO; -AMBI10TA PO; -AMBI5TAB PO; +BUPIVACAINE HCL 0.25% 30 ML VIAL As Ordered; -CIPR500T19 PO; -CLEO300C2 PO; -COLA100C2 OR; -COLA100C5 PO; -COLA50CA3 PO; -COMPOUND CREAM EXT; -CRES20TA PO; -CYCL10TA PO; -DRIS50002 PO; -EFFE37.527 PO; -FENT12PA TOP; -GABA300C2 PO; -GABA400C PO; -GABA800T PO; -GLIP5TAB2 PO; -GLUC1000 OR; -GLYB25TA PO; -GLYB5TAB5 PO; -HUMUINJ IJ; -HUMULIN NPH SQ; -IBUP100SUS PO; -IBUP600T OR; -INSULANT SC; -IRON65TA PO; +ISOVUE-M 300 61% 15ML VIAL (Q9967) As Ordered; -LABE100T2 OR; -LABE300T PO; -LANTINJ4 SC; -LEVA750T7 PO; +LIDOCAINE 1% SDV INJ 30 ML VIAL As Ordered; -LISI5TAB OR; -MELO15TA3 PO; -META800T82 PO; -METF1000 PO; -METF10004 PO; +MIDAZOLAM INJ 2 MG/2 ML VIAL (J2250) As Ordered; -MORP15TA10 PO; -MORP15TA2 PO; -NEUR800T OR; -NICO14PA EXT; -NORCOTAB PO; +ONDANSETRON 4MG/2ML VIAL (J2405) As Ordered; -OXYC15TA11 PO; -OXYC15TA76 PO; -PERC5TAB8 OR; -PERC7.5T12 PO; -PERCOCET PO; -PNV OR; -PROP20TA5 PO; -PROZ20CA PO; -REQU1TAB15 PO; -SERO1TAB PO; -SERO1TAB3 PO; -SERO50TA PO; -TIZA4CAP3; -TRIA1CR TOP; +TRIAMCINOLONE ACETONIDE SUSP 40 MG/ML VIAL (J3301) As Ordered; -TRIC145T22 PO; -TYLENOL #3 OR; -VICO5TAB OR; -VICO5TAB PO; -VICODINES TAB OR; -VICT18IN; -WELCHOL PO; -XANA0.5T PO; -XANA1TAB2 PO; -ZANA4TAB PO; -[UNRECOGNIZED DRUG - OTHER] PO; +diphenhydrAMINE INJ 50MG/ML VIAL (J1200) As Ordered; +fentaNYL 100 MCG/2 ML INJECTION (J3010) As Ordered; -ferrous sulfate PO; -vibryd PO; -zanax PO
== END ==
LOC: M PAIN 14:00
DX: G89.29 Other chronic pain (principal); M47.812 Spondylosis without myelopathy or radiculopathy, cervical region; E11.9 Type 2 diabetes mellitus without complications; F32.9 Major depressive disorder, single episode, unspecified; F41.9 Anxiety disorder, unspecified; E78.5 Hyperlipidemia, unspecified; G43.909 Migraine, unspecified, not intractable, without status migrainosus; R01.1 Cardiac murmur, unspecified; Z88.0 Allergy status to penicillin; J30.89 Other allergic rhinitis; F51.3 Sleepwalking [somnambulism]; E66.9 Obesity, unspecified; Z68.33 Body mass index [BMI] 33.0-33.9, adult; Z79.4 Long term (current) use of insulin; Z79.899 Other long term (current) drug therapy; Z91.81 History of falling
CPT/HCPCS: J3301

== ENCOUNTER → 2017-11-15 | Outpatient (CLI) | payer MEDICARE, MEDICAID | LOC: M PAIN 10:15 | DX: M47.812 Spondylosis without myelopathy or radiculopathy, cervical region (principal); M96.1 Postlaminectomy syndrome, not elsewhere classified; M54.2 Cervicalgia; E11.9 Type 2 diabetes mellitus without complications; F32.9 Major depressive disorder, single episode, unspecified; F41.9 Anxiety disorder, unspecified; E78.5 Hyperlipidemia, unspecified; G43.909 Migraine, unspecified, not intractable, without status migrainosus; J30.9 Allergic rhinitis, unspecified; F17.210 Nicotine dependence, cigarettes, uncomplicated; D50.9 Iron deficiency anemia, unspecified; Z87.442 Personal history of urinary calculi; E55.9 Vitamin D deficiency, unspecified; R01.1 Cardiac murmur, unspecified; Z79.4 Long term (current) use of insulin; Z79.891 Long term (current) use of opiate analgesic; Z88.0 Allergy status to penicillin; Z88.8 Allergy status to other drugs, medicaments and biological substances; Z79.899 Other long term (current) drug therapy | CPT/HCPCS: G0463 ==

== ENCOUNTER → 2018-01-14 | Outpatient (CLI) | payer MEDICARE, OTHER | LOC: M PAIN 09:15 | DX: M47.812 Spondylosis without myelopathy or radiculopathy, cervical region (principal); M96.1 Postlaminectomy syndrome, not elsewhere classified; M54.2 Cervicalgia; E11.9 Type 2 diabetes mellitus without complications; F41.9 Anxiety disorder, unspecified; G43.909 Migraine, unspecified, not intractable, without status migrainosus; E66.01 Morbid (severe) obesity due to excess calories; F31.81 Bipolar II disorder; F17.210 Nicotine dependence, cigarettes, uncomplicated; J30.9 Allergic rhinitis, unspecified; D50.9 Iron deficiency anemia, unspecified; E55.9 Vitamin D deficiency, unspecified; R01.1 Cardiac murmur, unspecified; Z87.442 Personal history of urinary calculi; Z90.49 Acquired absence of other specified parts of digestive tract; Z79.4 Long term (current) use of insulin; Z68.35 Body mass index [BMI] 35.0-35.9, adult; Z79.891 Long term (current) use of opiate analgesic; Z88.0 Allergy status to penicillin; Z88.8 Allergy status to other drugs, medicaments and biological substances; Z79.899 Other long term (current) drug therapy | CPT/HCPCS: G0463 ==

== ENCOUNTER → 2018-03-03 | Outpatient (CLI) | payer MEDICARE ==
[2018-03-03 14:24] LABS: CONTROL LINE HCG INT CTR LINE PRESENT; HCG, SERUM QUALITATIVE NEGATIVE (NEGATIVE)
[2018-03-03 14:40] LABS: FOLLICLE STIMULATING HORMONE 3.9 mIU/mL; FREE T4 0.84 NG/DL (0.76-1.46); LUTEINIZING HORMONE 5.4 mIU/mL
[2018-03-05 14:13] LABS: HPV HYBRID CAPTURE II Negative (Negative)
== END ==
LOC: M SMT 10:19
DX: Z12.4 Encounter for screening for malignant neoplasm of cervix (principal); N92.1 Excessive and frequent menstruation with irregular cycle
CPT/HCPCS: 83001

== ENCOUNTER → 2018-03-07 | Outpatient (CLI) | payer MEDICARE | LOC: M RAD 14:42 | DX: N92.1 Excessive and frequent menstruation with irregular cycle (principal) | CPT/HCPCS: 76856 ==

== ENCOUNTER → 2018-05-03 | Outpatient (CLI) | payer MEDICARE, OTHER ==
[~2018-05-03] MED LIST changes: +/BACL20TA OR; +/BUSP5TA OR; +/DULO30CA OR; +/ESOM40CA PO; +/FENO14TA PO; +/GLYB5TA OR; +/METH500TA PO; +/ROPI5TA PO; +ABIL5TAB PO; +AMBI10TA PO; +AMBI5TAB PO; +BACT800T5 PO; -BUPIVACAINE HCL 0.25% 30 ML VIAL As Ordered; +CIPR-249 PO; +CIPR500T19 PO; +CLEO300C2; +CLEO300C2 PO; +COLA100C2 OR; +COLA100C5 PO; +COLA50CA3 PO; +COMPOUND CREAM EXT; +CRES20TA PO; +CYCL10TA PO; +DRIS50003 PO; +EFFE37.5 PO; +FENT12PA TOP; +FENTANYL TOP; +GABA300C2 PO; +GABA400C PO; +GABA800T4 PO; +GLIP5TAB2 PO; +GLUC1000 OR; +GLYB25TA PO; +GLYB5TAB5 PO; +HUMUINJ IJ; +HUMULIN NPH SQ; +IBUP100SUS PO; +IBUP600T OR; +INSULANT SC; +IRON65TA PO; -ISOVUE-M 300 61% 15ML VIAL (Q9967) As Ordered; +KEFL500C17 PO; +LABE100T2 OR; +LABE300T PO; +LAMO100T; +LANTINJ4 SC; +LEVA750T7 PO; -LIDOCAINE 1% SDV INJ 30 ML VIAL As Ordered; +LISI5TAB OR; +MELO15TA3 PO; +META800T82 PO; +METF1000 PO; +METF10004 PO; +METH75TA; -MIDAZOLAM INJ 2 MG/2 ML VIAL (J2250) As Ordered; +MORP15TA10 PO; +MORP15TA2 PO; +NARC1SPR; +NEUR800T OR; +NICO14PA EXT; +NORCOTAB PO; -ONDANSETRON 4MG/2ML VIAL (J2405) As Ordered; +OXYC15TA11 PO; +OXYC15TA76 PO; +OXYC1TAB23 PO; +PERC5TAB12 PO; +PERC5TAB8 OR; +PERC7.5T12 PO; +PERCOCET PO; +PNV OR; +PROP20TA5 PO; +PROZ20CA PO; +REQU0.5T PO; +SERO1TAB PO; +SERO1TAB3 PO; +SERO50TA PO; +TIZA4CAP; +TRIA1CR TOP; -TRIAMCINOLONE ACETONIDE SUSP 40 MG/ML VIAL (J3301) As Ordered; +TRIC145T22 PO; +TYLENOL #3 OR; +VICO5TAB OR; +VICO5TAB PO; +VICODINES TAB OR; +VICT18IN; +WELCHOL PO; +XANA0.5T PO; +XANA1TAB2 PO; +ZANA4TAB PO; +[UNRECOGNIZED DRUG - OTHER] PO; -diphenhydrAMINE INJ 50MG/ML VIAL (J1200) As Ordered; -fentaNYL 100 MCG/2 ML INJECTION (J3010) As Ordered; +ferrous sulfate PO; +vibryd PO; +zanax PO
--- NOTE | 2018-05-16 00:24 | ECWPNPC ---
PATIENT NAME: VASYL LEA : 1980 GENDER: FEMALE VISIT DATE: 05/03/2018 DISCHARGE DATE: 05/03/18 1557 VISIT LOCKED DATE TIME: PHYSICIAN: VERONICA CAR RESOURCE: VERONICA CAR REASON FOR APPOINTMENT 1. SW PT-NECK/BACK HISTORY OF PRESENT ILLNESS HISTORY OF PRESENT ILLNESS: HERE FOR ROUTINE F/U AND MEDICINE MANAGEMENT FOR CHRONIC GENERALIZED NECK AND LOW BACK PAIN.HISTORY OF LOW BACK SURGERY IN 2009.PAIN WORSENED AFTER SURGERY.HAD A LONG CONVERSATION TODAY ABOUT MEDICATION MANAGEMENT AND GOAL TO REDUCE DAILY NARCOTIC EXPOSURE.REVIEWED POTENTIAL SIDE EFFECTS OF DAILY OPIOD EXPOSURE.SHE SEEMS TO BE SOMEWHAT RECEPTIVE TO SLOWLY REDUCING MEDICATION.RATING PAIN VAS 8/10. PAIN THE PATIENT DESCRIBES THE PAIN... FALL RISK SCREENING: SCREENING :NO FALLS IN THE PAST YEAR CURRENT MEDICATIONS TAKING COLACE 100 MG CAPSULE 1 CAPSULE NEEDED ORALLY TWICE DAILY, NOTES: NOT LATELY TAKING ONE TOUCH ULTRA TEST STRIPS _ STRIPS DX: E11.9 _ TWICE DAILY AND NEEDED TAKING GLUCOMETER 1 GLUCOMETER DX: E11.9 USE TO TEST FSBS TAKING SEROQUEL 200 MG TABLET 1 TABLET ORALLY TWICE A DAY TAKING LISINOPRIL 2.5 MG TABLET 1 TABLET ORALLY ONCE A DAY TAKING ZOFRAN ODT 4 MG TABLET DISINTEGRATING DIRECTED ORALLY EVERY 4 HOURS NEEDED FOR NAUSEA, NOTES: NOT LATELY TAKING NARCAN 4 MG/0.1ML LIQUID DIRECTED NASALLY USE DIRECTED PRN FOR RESP DISTRESS WITH OPIOID USE TAKING METHOCARBAMOL 750 MG TABLET 1 TABLET ORALLY THREE TIMES DAILY TAKING BYDUREON BCISE 2 MG INJECTION SUSPENSION EXTENDED RELEASE DIRECTED SUBCUTANEOUS WEEKLY TAKING JARDIANCE 25 MG TABLET 1 TABLET ORALLY ONCE A DAY TAKING GLIMEPIRIDE 1 MG TABLET TAKE ONE TABLET BY MOUTH EVERY DAY WITH BREAKFAST OR FIRST MAIN MEAL ORALLY ONCE A DAY TAKING LATUDA 20 MG TABLET 1 TABLET ORALLY BEFORE BEDTIME TAKING GABAPENTIN 800 MG TABLET 1 CAPSULE ORALLY THREE TIMES A DAY TAKING REQUIP 0.5 MG TABLET 3 TABS ORALLY ONCE A DAY BEFORE BEDTIME TAKING CYCLOBENZAPRINE HCL 10 MG TABLET 1 TABLET NEEDED ORALLY THREE TIMES A DAY TAKING ONE TOUCH ULTRA TEST STRIPS DX 250.00 STRIPS DIRECTED - TWICE A DAY TAKING PEN NEEDLES 31G X 8 MM MISCELLANEOUS DIRECTED SUBCUTANEOUSLY DAILY WITH VICTOZA PEN. DX: Z79.4 TAKING LANCETS - MISCELLANEOUS 1 LANCET DX E 11.9 TWICE DAILY TAKING LANTUS SOLOSTAR 100 UNIT/ML SOLUTION PEN-INJECTOR 75 UNITS SUBCUTANEOUS BEFORE BEDTIME TAKING BD ULTRA-FINE PEN NEEDLES 32G 4MM _ DIRECTED DX: E11.9 WITH LANTUS PEN TAKING BD ULTRA-FINE PEN NEEDLES 4 MM NANNO PEN NEEDLE USE DIRECTED WITH LANTUS PEN TAKING CRESTOR 40 MG TABLET 1 TABLET ORALLY ONCE A DAY TAKING DIFLUCAN 150 MG TABLET 1 TABLET ORALLY ONCE NEEDED FOR YEAST INFECTION TAKING DIFLUCAN 150 MG TAB TAKE ONE TABLET BY MOUTH ONCE NEEDED FOR YEAST INFECTION TAKING FENTANYL 50 MCG/HR PATCH 72 HOUR 1 PATCH TO SKIN TRANSDERMAL EVERY 72 HRS MDD=1 TAKING OXYCODONE HCL 15 MG TABLET 1 TABLET NEEDED ORALLY EVERY 6 HRS MDD 4 NOT-TAKING LAMICTAL 25 MG TABLET 3 TABLET ORALLY ONCE A DAY, NOTES: HAD A RASH MEDICATION LIST REVIEWED AND RECONCILED WITH THE PATIENT PAST MEDICAL HISTORY DM2 DEPRESSION/ANXIETY/BIPOLAR 2 HYPERLIPIDEMIA CHRONIC BACK PAIN, FOLLOWS WITH PAINCLINIC, [facility] RECURRENT NEPHROLITHIASIS - URO MIGRAINES - 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 MORBID OBESITY NICOTINE DEP EKG 02/16 LAE, INCOMP RBBB CORDELIA 02/16 FEV1 2.65 FE DEF ANEMIA URETERAL STONE MIGRAINES RENAL LITHIASIS IRON DEFICIENCY ANEMIA VITAMIN D DEFICIENCY HEART MURMUR ALLERGIES PENICILLIN (FOR ALLERGIES USE ONLY): RASH: ALLERGY ENVIRONMENTAL: NASAL CONGESTION: ALLERGY LAMICTAL: RASH: ALLERGY SURGICAL HISTORY CHOLECYSTECTOMY 2002 C SECTION 2 BACK SURGERY 12/2009 TUBAL LIGATION 2011 L ESWL - CARRIE 04/06/13 KIDNEY STONE 09/2014 FAMILY HISTORY FATHER: , OF PANCREATIC CA MOTHER: ALIVE, T2DM, HLD, CAD, CAROTID STENOSIS, RENAL DISEASE SIBLINGS: ALIVE, NO KNOWN MEDICAL PROBLEMS PATERNAL GRAND FATHER: , UNKNOWN PATERNAL GRAND MOTHER: , UNKNOWN MATERNAL GRAND FATHER: , OF 32 OF [place] MATERNAL GRAND MOTHER: , OF STROKE IN 50S 6 BROTHER(S) , 5 SISTER(S) . 1 SON(S) , 5 DAUGHTER(S) - HEALTHY. FATHER OF PANCREATIC CANCER,. SOCIAL HISTORY GENERAL: TOBACCO USE ARE YOU A:CURRENT SMOKER ARE YOU INTERESTED IN QUITTING?NOT READY TO QUIT COUNSELED THE PATIENT ON SMOKING EFFECTS, EDUCATION [id number]/29/2019 HOW MANY CIGARETTES A DAY DO YOU SMOKE?11-20 HOW SOON AFTER YOU WAKE UP DO YOU SMOKE YOUR FIRST CIGARETTE?WITHIN 5 MIN HOW OFTEN DO YOU SMOKE CIGARETTES?EVERY DAY PATIENT COUNSELED ON THE DANGERS OF TOBACCO USE AND URGED TO QUIT:05/03/2018 BMI CARE GOAL FOLLOW-UP ABOVE NORMAL BMI FOLLOW-UPDIETARY MANAGEMENT EDUCATION, GUIDANCE, AND COUNSELING ALCOHOL SCREENING DID YOU HAVE A DRINK CONTAINING ALCOHOL IN THE PAST YEAR?NO POINTS0 INTERPRETATIONNEGATIVE RECREATIONAL DRUG USE DRUG USE?NO CAFFEINE CAFFEINE USE?YES HOW OFTEN AND HOW MUCH? 2 CUPS PER DAY SEXUAL HX HAD SEX IN THE LAST 12 MONTHS (VAGINAL, ORAL, OR ANAL)?NO LMP:07/20/16 HAVE YOU EVER HAD AN STD?NO HIV / HEP-C SCREENING HIV TEST OFFERED TO PATIENT:YES DATE OFFERED:05/27/2016 TEST ACCEPTED:NO HEP-C TEST OFFERED TO PATIENT:YES N/A DATE OFFERED:10/09/2016 REASON:PATIENT DECLINED TEST ACCEPTED:NO REASON:PATIENT DECLINED ORTHODOX [id number] MU-ISM LANGUAGE LANGUAGES SPOKEN:FAROESE EDUCATION LEVEL OF EDUCATION:[employer]CHO[employer] 8TH GRADE LEARNING BARRIERS / SPECIAL NEEDS CHANGE FROM LAST VISIT?NO BARRIERS TO LEARNING?YES COMMENTS READING HEARING IMPAIRED?NO VISION IMPAIRED?YES :CORRECTIVE LENSES COGNITIVELY IMPAIRED?NO READINESS TO LEARN?YES LEARNING PREFERENCES?YES :TAPES/VIDEOS, BOOKLETS, HANDOUTS, CLASSES, DEMONSTRATION/VERBAL INSTRUCTION, OTHER (PLEASE COMMENT) LEARNING CAPABILITIES PRESENT?YES EMOTIONAL BARRIERS?NO SPECIAL DEVICES?NO VEST TAILOR NEEDED?NO DOMESTIC VIOLENCE DO YOU FEEL SAFE IN YOUR ENVIRONMENT?YES OCCUPATION: DISABLED. DIET: CARBOHYDRATE CONTROLLED. EXERCISE: WALKS, DAILY. MARITAL STATUS: . NEW PATIENT PAIN DIARY TODAY'S VISIT NOTES, FROM 0-10, WHAT LEVEL IS YOUR PAIN TODAY? 0. PAIN CLINIC PFS, CLERGY, PUBLIC HEALTH REFERRALS PFS REFERRAL NEEDED?NO CLERGY REFERRAL NEEDED?NO PUBLIC HEALTH REFERRAL NEEDED?NO WAS THE PROVIDER NOTIFIED OF ANY PERTINENT INFO?YES HAS THE PATIENT BEEN EDUCATED REGARDING HIS/HER PLAN OF CARE?YES HAS THE PATIENT BEEN EDUCATED REGARDING PAIN, THE RISK FOR PAIN, THE IMPORTANCE OF EFFECTIVE PAIN MANAGEMENT, AND THE PAIN ASSESSMENT PROCESS?YES ADVANCE DIRECTIVE ADVANCE DIRECTIVE DISCUSSED WITH PATIENT:YES DECLINED HCP INFORMATION. REVIEWED WITH PATIENT 01/14/18 [id number] JSREVIEWED WITH PATIENT 05/03/18 8084 JS. HOSPITALIZATION/MAJOR DIAGNOSTIC PROCEDURE SURGERY RELATED REVIEW OF SYSTEMS REVIEWED BY: PROVIDER: VERONICA SAEED . CONSTITUTIONAL: ANY CHANGE IN YOUR MEDICAL CONDITION? NO . CHILLS NO . FEVER NO . INFECTION: DO YOU HAVE NEW INFECTIONS? NO . DO YOU HAVE HISTORY OF MRSA? NO . MUSCULOSKELETAL: ANY NEW PATTERNS OF PAIN OR NUMBNESS? NO . GASTROENTEROLOGY: ANY NEW CHANGE IN BOWEL CONTROL? NO . GENITOURINARY: ANY NEW CHANGE IN BLADDER CONTROL? NO . IS THERE A CHANCE YOU COULD BE ? NO . HEMATOLOGY/LYMPH: DO YOU TAKE ANY BLOOD THINNERS? (FOR EXAMPLE- COUMADIN, PLAVIX, AGGRENOX, PLATEL, PRADAXA, OR XARELTO) NO . WHEN WAS YOUR LAST DOSE? DATE: TIME: . NEUROLOGY: HAVE YOU FALLEN IN THE PAST 12 MONTHS? YES, FROM SLEEP WALKING, HAPPENED PRIOR TO LAST VISIT, DISCUSSED AT LAST VISIT . ANY NEW EXTREMITY NUMBNESS OR WEAKNESS? NO . CARDIOLOGY: DO YOU HAVE A PACEMAKER OR DEFIBRILLATOR? NO . RESPIRATORY: HAVE YOU BEEN SICK IN THE PAST WEEK? NO . FEVER NO . FLU LIKE SYMPTOMS? NO . COUGH YES, STATES COUGH FOR A COUPLE DAYS, PRODUCTIVE . INTEGUMENTARY: DO YOU HAVE ANY RASHES OR OPEN SORES? NO . ALLERGIC/IMMUNO: ARE YOU ALLERGIC TO IV DYE? NO . ANY NEW ALLERGIES? NO . PSYCHIATRIC: DO YOU HAVE THOUGHTS OF HURTING YOURSELF OR SOMEONE ELSE? NO . ARE YOU ABUSED, NEGLECTED, OR IN AN UNSAFE ENVIRONMENT? NO . ENDOCRINOLOGY: ARE YOU DIABETIC? YES . OTHER: DO YOU NEED ANY PRESCRIPTIONS? NO . IF YES, PLEASE LIST: ____ . ANY NEW PROBLEMS WITH YOUR MEDICATIONS? NO . WHEN DID YOU LAST EAT? ____ . WHEN DID YOU LAST DRINK? ____ . WHAT DID YOU LAST DRINK? ____ . NAME OF PERSON DRIVING YOU HOME? ____ . DO YOU HAVE ANY OTHER QUESTIONS OR CONCERNS NO . VITAL SIGNS WT 220.8 LBS, HT 66 IN, BMI 35.63 INDEX, BP 115/91 MM HG, HR 104 /MIN, RR 18 /MIN, TEMP 97.4 F, OXYGEN SAT % 99%, SAFE IN ENV? (Y/N) YES, NA INITIALS MA 14:48, REVIEWED BY: LEX. EXAMINATION GENERAL EXAMINATION: GENERAL APPEARANCE:AWAKE,ALERT ,PLEAASANT . PSYCHAFFECT NORMAL . LUNGS:LUNG PRESCOTT ARE CLEAR TO AUSCULTATION BILATERALLY. GOOD MOVEMENT OF AIR . HEART:S1, S2 IN A REGULAR RATE AND RHYTHM. NO SIGNIFICANT MURMURS, RUBS OR GALLOPS NOTED . ASSESSMENTS LUMBAR DISC DISEASE WITH RADICULOPATHY - M51.16 (PRIMARY) CHRONIC PRESCRIPTION OPIATE USE - Z79.899 CERVICALGIA - M54.2 TREATMENT LUMBAR DISC DISEASE WITH RADICULOPATHY CONTINUE COLACE CAPSULE, 100 MG, 1 CAPSULE NEEDED, ORALLY, TWICE DAILY, NOTES: NOT LATELY CONTINUE METHOCARBAMOL TABLET, 750 MG, 1 TABLET, ORALLY, THREE TIMES DAILY CONTINUE GABAPENTIN TABLET, 800 MG, 1 CAPSULE, ORALLY, THREE TIMES A DAY CONTINUE REQUIP TABLET, 0.5 MG, 3 TABS, ORALLY, ONCE A DAY BEFORE BEDTIME CONTINUE CYCLOBENZAPRINE HCL TABLET, 10 MG, 1 TABLET NEEDED, ORALLY, THREE TIMES A DAY REFILL FENTANYL PATCH 72 HOUR, 50 MCG/HR, 1 PATCH TO SKIN, TRANSDERMAL, EVERY 72 HRS MDD=1, 30 DAY(S), 10, REFILLS 0 REFILL OXYCODONE HCL TABLET, 15 MG, 1 TABLET NEEDED, ORALLY, EVERY 6 HRS MDD 4, 30 DAY(S), 120, REFILLS 0 NOTES: [facility] NARCOTIC AGREEMENT WAS UPDATED AND SIGNED TODAY BY THE PATIENT. SEE ATTACHED DOCUMENT FOR FULL DETAILS; SPECIFIC ISSUES WERE REVIEWED: 1) KEEP PAIN MEDS IN THEIR ORIGINAL BOTTLES AND ANY WEEKLY PLANNERS ARE TO BE BROUGHT TO THE PAIN CENTER AT EVERY VISIT. 2) THE PATIENT IS NOT TO INCREASE DOSING OR TIMING OF THEIR PAIN MEDICATION WITHOUT SPECIFIC DIRECTION OF THEIR PAIN CENTERPROVIDER (NOT ER OR OTHER PROVIDERS). 3) ALL PAIN MEDS ARE TO BE KEPT SECURED, IN A LOCKED BOX. 4) NO PAIN MEDS ARE TO BE SHARED WITH ANY OTHER PERSON FOR ANY REASON. 5) NO PAIN MEDS MAY BE TAKEN FROM ANY FRIENDS OR RELATIVES FOR ANY REASON 6) NO MEDS OR SUBSTANCES WHICH ARE NOT LEGAL ARE TO BE USED- NO MARIJUANA, NO COCAINE, AMPHETAMINES, HEROIN, OR OTHERS ARE EVER TO BE USED. 7)URINE TESTING IS DONE TO ACCOUNT FOR MEDS AND SUBSTANCES BEING TAKEN AND WILL BE DONE RANDOMLY., RISKS AND BENEFITS OF NARCOTIC/OPIOD MEDICATIONS WERE REVIEWED WITH PATIENT - THIS INCLUDES BUT IS NOT LIMITED TO RISK OF DEPENDANCE/DEVELOPMENT OF ADDICTION, MOOD DISTURBANCE AND DEPRESSION, OSTEOPOROSIS, HORMONAL AND LABIDAL CHANGES, RESPIRATORY DEPRESSION AND . PATIENT IS ADVISED NOT TO DRIVE OR DRINK ALCOHOL WHILE ON THESE MEDICATIONS, ISTOP REGISTRY REVIEWED AND DEMONSTRATES COMPLLIANCE. (REF #[id number] ) URINE TOX TODAY. PROCEDURE CODES FA211 ESTABILISHED PATIENT [facility] CHARGE DISPOSITION & COMMUNICATION FOLLOW UP 6 WEEKS ELECTRONICALLY SIGNED BY DARLIN POSADA ON 05/15/2018 AT 02:54 PM EST DISCLAIMER : THIS IS A VISIT SUMMARY EXTRACTED FROM THE [employer] CHART. IT IS NOT A COPY OF THE [employer] PROGRESS NOTE. KAVON
== END ==
LOC: M PAIN 14:45
PROVIDERS: ATTEND Nurse Practitioner Family
DX: M51.16 Intervertebral disc disorders with radiculopathy, lumbar region (principal); E11.9 Type 2 diabetes mellitus without complications; F31.9 Bipolar disorder, unspecified; F41.9 Anxiety disorder, unspecified; J30.9 Allergic rhinitis, unspecified; E78.5 Hyperlipidemia, unspecified; G43.909 Migraine, unspecified, not intractable, without status migrainosus; E66.01 Morbid (severe) obesity due to excess calories; D50.9 Iron deficiency anemia, unspecified; E55.9 Vitamin D deficiency, unspecified; M50.10 Cervical disc disorder with radiculopathy, unspecified cervical region; R01.1 Cardiac murmur, unspecified; F17.210 Nicotine dependence, cigarettes, uncomplicated; Z79.4 Long term (current) use of insulin; Z79.891 Long term (current) use of opiate analgesic; Z88.0 Allergy status to penicillin; Z79.899 Other long term (current) drug therapy; Z88.8 Allergy status to other drugs, medicaments and biological substances; Z68.35 Body mass index [BMI] 35.0-35.9, adult

== ENCOUNTER 2018-05-07 17:37 | Emergency (ER) | payer MEDICARE, OTHER ==
[~2018-05-07] VITALS: Ht 167.6 cm; Wt 100.0 kg
[2018-05-07 17:37] VITALS: BP 145/70
[~2018-05-07 17:37] MED LIST changes: -CIPR-249 PO; -KEFL500C17 PO
[2018-05-07] MEDS ORDERED: NS 1,000 ML IV ONE (18:45)
[2018-05-07] MEDS ORDERED: ONDANSETRON 4MG/2ML VIAL (J2405) IV ONE (18:45)
[2018-05-07] MEDS ORDERED: KETOROLAC 30 MG/ML VIAL (J1885) IV ONE (18:45)
[2018-05-07 19:31] LABS: BASO # 0.1 10^3/uL (0.0-0.2); BASO % 0.7 % (0.0-1.0); EOS # 0.2 10^3/uL (0.0-0.50); EOS % 2.1 % (0.0-3.0); HEMATOCRIT 42.9 % (36.0-47.0); HEMOGLOBIN 13.8 g/dl (12.0-15.5); LYMPH # 2.3 10^3/uL (1.5-4.5); MEAN CORPUSCULAR HEMOGLOBIN 27.3 pg (27.0-33.0); MEAN CORPUSCULAR HGB CONC 32.2 g/dl (32.0-36.5); MONO # 0.7 10^3/uL (0.0-0.8); MONO % 8.6 % (0.0-5.0); NEUTROPHILS # 5.2 10^3/uL (1.8-7.7); NEUTROPHILS % 61.4 % (36.0-66.0); PLATELET COUNT, AUTOMATED 212 10^3/uL (150-450); RED BLOOD COUNT 5.05 10^6/uL (4.00-5.40); WHITE BLOOD COUNT 8.5 10^3/uL (4.0-10.0)
[2018-05-07] MEDS ORDERED: MORPHINE 4 MG/ML 1ML VIAL/SYRINGE (J2270) IV ONE (19:45)
--- NOTE | 2018-05-07 19:55 | REP ---
Clinical: Left lower quadrant pain. Technique: Axial noncontrast images from the lung bases to the pubic symphysis with coronal and sagittal re-formations. Comparison: 08/06/2017. Findings: The lung bases are clear. Liver, spleen, pancreas, and bilateral adrenal glands are normal for noncontrast evaluation. Evidence of prior cholecystectomy. The kidneys again demonstrate moderate medullary nephrocalcinosis without perinephric stranding, hydroureteronephrosis or obstructing ureteral calculi. The enteric system is without obstruction or acute inflammatory process. Normal terminal ileum and appendix identified in the right lower quadrant. Pelvis demonstrates normal bladder and age-appropriate uterus/adnexa. No pelvic fluid or ascites. No free air. No adenopathy. 1 cm fat containing periumbilical hernia noted. Abdominal aorta without aneurysm. Musculoskeletal structures demonstrate degenerative changes at the L5-S1 level. Impression: 1. No evidence for acute abdominopelvic pathology. No ascites, focal inflammatory stranding, or adenopathy. 2. Stable medullary nephrocalcinosis without hydronephrosis or perinephric stranding. 3. 1 cm fat containing periumbilical hernia. Electronically Signed by Jacob Sibley MD 05/07/2018 07:47 P
[2018-05-07 20:03] LABS: ALBUMIN 3.7 GM/DL (3.2-5.2); ALT/SGPT 24 U/L (12-78); BILIRUBIN,DIRECT < 0.1 MG/DL (0.0-0.2); BILIRUBIN,TOTAL 0.3 MG/DL (0.2-1.0); BLOOD UREA NITROGEN 7 MG/DL (7-18); CALCIUM LEVEL 8.6 MG/DL (8.5-10.1); CARBON DIOXIDE LEVEL 26 MEQ/L (21-32); CHLORIDE LEVEL 107 MEQ/L (98-107); CREATININE FOR GFR 0.82 MG/DL (0.55-1.30); GLOMERULAR FILTRATION RATE > 60.0 (>60); GLUCOSE, FASTING 232 MG/DL (70-100); LIPASE 208 U/L (73-393); POTASSIUM SERUM 4.2 MEQ/L (3.5-5.1); SODIUM LEVEL 140 MEQ/L (136-145); TOTAL PROTEIN 6.9 GM/DL (6.4-8.2)
--- NOTE | 2018-05-07 21:45 | REPVR ---
EXAM: US Pelvis Complete, Transabdominal EXAM DATE/TIME: 05/07/2018 9:01 PM CLINICAL HISTORY: 37 years old, female; Pain; Pelvic pain; Prior surgery; Surgery date: 6+ months; Surgery type: 2 prior c-sections; Additional info: Llq pain TECHNIQUE: Real-time transabdominal pelvic ultrasound with image documentation. Complete exam. COMPARISON: US PELVIC NON-OB COMPLETE 03/07/2018 3:25 PM FINDINGS: Uterus/cervix: The uterus measures 12 CM in length by 4.8 CM in AP dimension by 6.6 CM in transverse dimension. There is evidence of a scar. The endometrium measures approximately 1 CM in thickness and consistent with proliferative endometrium. Right adnexa: The right ovary measures 2.5 CM in length by 1.5 cm thickness. There is vascular flow of the right ovary. Left adnexa: The left ovary measures 2.1 CM in length by 1 CM in thickness. There is vascular flow the left ovary. Free fluid: There is no evidence of free fluid in the pelvis. Bladder: Normal appearing urinary bladder. IMPRESSION: Normal-appearing pelvic ultrasound. Electronically signed by: Allan Bowen On 05/07/2018 21:45:17 PM
[2018-05-07] MEDS ORDERED: CIPR-249 PO (22:03)
[2018-05-07] MEDS ORDERED: CIPROFLOXACIN 500 MG TAB PO ONE (22:15)
[2018-05-10] MEDS ORDERED: KEFL500C17 PO (09:42)
== END 2018-05-07 22:16 | disposition home or self-care (01) ==
LOC: M ED 17:37
DX: N30.90 Cystitis, unspecified without hematuria (principal); E11.9 Type 2 diabetes mellitus without complications; F41.9 Anxiety disorder, unspecified; F33.9 Major depressive disorder, recurrent, unspecified; N80.9 Endometriosis, unspecified; Z79.899 Other long term (current) drug therapy; Z79.4 Long term (current) use of insulin; Z88.0 Allergy status to penicillin; Z88.8 Allergy status to other drugs, medicaments and biological substances
CPT/HCPCS: 36415; 74176; 76856; 80048; 80076; 81001; 81025; 83690; 85025; 87088; 87186; 93976; 96361; 96374; 96375; 99284; J1885; J2270; J2405

== ENCOUNTER → 2018-05-11 | Outpatient (CLI) | payer MEDICARE ==
[~2018-05-11] MED LIST changes: +CIPR-249 PO; +KEFL500C17 PO
[2018-05-11 08:27] LABS: HEMOGLOBIN A1c 9.6 %
== END ==
LOC: M LAB 07:47
PROVIDERS: ATTEND Family Medicine
DX: M13.0 Polyarthritis, unspecified (principal); E11.65 Type 2 diabetes mellitus with hyperglycemia

== ENCOUNTER → 2018-05-16 | Outpatient (REF) | payer MEDICARE, OTHER | LOC: M LAB REF 13:08 | PROVIDERS: ATTEND Obstetrics & Gynecology | DX: N93.9 Abnormal uterine and vaginal bleeding, unspecified (principal) ==

== ENCOUNTER → 2018-06-02 | Outpatient (REF) | payer MEDICARE, OTHER, MEDICAID ==
[~2018-06-02] MED LIST changes: +BYDU1INJ SC; +DURA50DI2 TD; +JARD1TAB3 PO; +LATU40TA PO; +glyburide PO
== END ==
LOC: M LAB REF 17:00
PROVIDERS: ATTEND Obstetrics & Gynecology
DX: R30.0 Dysuria (principal)

== ENCOUNTER 2018-06-15 10:13 | Day surgery (SDC) | payer MEDICARE ==
[~2018-06-15] VITALS: Ht 167.6 cm; Wt 97.9 kg
[~2018-06-15 10:13] MED LIST changes: +LR 1,000 ML IV ONE
[2018-06-15 10:31] LABS: HEMATOCRIT 45.3 % (36.0-47.0); HEMOGLOBIN 14.5 g/dl (12.0-15.5); MEAN CORPUSCULAR HEMOGLOBIN 28.2 pg (27.0-33.0); MEAN CORPUSCULAR VOLUME 88.1 fl (80.0-96.0); PLATELET COUNT, AUTOMATED 198 10^3/uL (150-450); RED BLOOD COUNT 5.14 10^6/uL (4.00-5.40); WHITE BLOOD COUNT 8.4 10^3/uL (4.0-10.0)
[2018-06-15] MEDS ORDERED: dexameTHASONE 4 MG/ML 1ML VIAL (J1100) As Ordered ONE (10:44)
[2018-06-15] MEDS ORDERED: LIDOCAINE 2% INJ 100 MG/5 ML SDV (FOR ANES.) As Ordered ONE (10:44)
[2018-06-15] MEDS ORDERED: ONDANSETRON 4MG/2ML VIAL (J2405) As Ordered ONE (10:44)
[2018-06-15] MEDS ORDERED: KETOROLAC 60 MG/2 ML VIAL (J1885) As Ordered ONE (10:44)
[2018-06-15] MEDS ORDERED: MIDAZOLAM INJ 2 MG/2 ML VIAL (J2250) As Ordered ONE (10:44)
[2018-06-15] MEDS ORDERED: PROPOFOL 200 MG/20 ML VIAL As Ordered ONE (10:44)
[2018-06-15] MEDS ORDERED: fentaNYL 100 MCG/2 ML INJECTION (J3010) As Ordered ONE ×2 (10:45→12:25)
[2018-06-15] MEDS ORDERED: PERCOCET 5MG/325MG TAB As Ordered ONE (12:25)
[2018-06-15] MEDS: PERCOCET 5MG/325MG TAB PO PRN ×2 (12:25→12:53)
[2018-06-15] MEDS: fentaNYL 100 MCG/2 ML INJECTION (J3010) IV PRN ×4 (12:25→12:40)
[2018-06-15] MEDS ORDERED: LR 1,000 ML IV SCH (12:30)
[2018-06-15 13:00] VITALS: BP 116/77
--- NOTE | 2018-06-16 07:59 | RO ---
DATE OF PROCEDURE: 06/15/2018 PREOPERATIVE DIAGNOSIS: Abnormal uterine bleeding. POSTOPERATIVE DIAGNOSIS: Abnormal uterine bleeding. PROCEDURE PERFORMED: 1. Hysteroscopy dilatation and curettage. 2. NovaSure endometrial ablation. SURGEON: Dr. Mariella Norman. COOKING CHEF: None. ANESTHESIA: General via laryngeal mask anesthesia (LMA). SPECIMENS TO PATHOLOGY: Endometrial curettings. ESTIMATED BLOOD LOSS: 20 mL FLUIDS REPLACED: 500 mL lactated Ringer's. DRAINS: In and out catheter. URINE OUTPUT: 200 mL COMPLICATIONS: None. PREOPERATIVE ANTIBIOTICS: None indicated. INTRAOPERATIVE FINDINGS: Uterine cavity length 6.5 cm. Uterine cavity width 4.5 cm power setting at 161. Total ablation time 1 minute 31 seconds. Hysteroscopic findings: No intrauterine mass. Hysteroscopic examination immediately post ablation revealed no evidence of uterine perforation. Global ablation was noted throughout the cavity. INDICATION: The patient is a 37-year-old with history of abnormal uterine bleeding. She was counseled on all the available treatment options. She has elected to proceed with a NovaSure endometrial ablation. A preoperative endometrial biopsy was negative for hyperplasia or malignancy. PROCEDURE: The patient was counseled consented on the risks, benefits, indications and alternatives of procedure. Informed consent was obtained. She was taken to the operating room with an IV running placed on operating table in the dorsal supine position. General anesthesia was administered and the airway secured without any difficulty. She was placed in the high lithotomy position. She was prepared and draped in the normal sterile fashion. A time-out was performed per protocol. The bladder was drained with in-and-out sterile catheter. Sterile speculum placed with good visualization of the cervix. The anterior lip of the cervix was grasped with a single-tooth tenaculum, and downward traction was applied. The cervix was sequentially dilated with Wally dilators. The cervical and uterine measurements were obtained. See above. The sharp curette was placed transcervically into the intrauterine cavity and a sharp curettage was performed throughout the cavity with a small amount of tissue return. After the curettage, the NovaSure device was placed transcervically into the intrauterine cavity and deployed. A cavity width assessment was performed. A cavity assessment was then performed. The automated cavity assessment passed/cleared and the NovaSure machine was activated. The ablation time was 1 minute and 31 seconds. The NovaSure device was easily removed in typical fashion. Charred tissue was noted on both sides of the mesh upon inspection. After its removal, the hysteroscope was placed transcervically into the intrauterine cavity. A stable bubble was noted at the anterior endometrial cavity, indicating no evidence of uterine perforation. Ablation was noted throughout the cavity. The hysteroscope was removed. Minimal bleeding from the cervical os was noted. The single-tooth tenaculum was removed. Tenaculum sites were noted to be hemostatic. All instruments were removed from the vagina. The patient tolerated the entire procedure well. Sponge, lap, needle, instrument counts were correct. The patient was transferred to the postanesthesia care unit in good and stable condition. KAVON
== END 2018-06-15 13:35 | disposition home or self-care (01) ==
LOC: M SDC 10:13
PROVIDERS: ATTEND Obstetrics & Gynecology
DX: N92.6 Irregular menstruation, unspecified (principal); E10.9 Type 1 diabetes mellitus without complications; Z79.4 Long term (current) use of insulin; Z79.899 Other long term (current) drug therapy; E78.5 Hyperlipidemia, unspecified; K21.9 Gastro-esophageal reflux disease without esophagitis; D64.9 Anemia, unspecified; F31.9 Bipolar disorder, unspecified; F41.9 Anxiety disorder, unspecified; F17.210 Nicotine dependence, cigarettes, uncomplicated
CPT/HCPCS: 36415; 58563; 85027; 86850; 86900; 86901; 88305; J1100; J1885; J2250; J2405; J3010

== ENCOUNTER → 2018-06-23 | Outpatient (CLI) | payer MEDICARE ==
[~2018-06-23] MED LIST changes: -/BACL20TA OR; -/DULO30CA OR; -/ESOM40CA PO; -/FENO14TA PO; -/GLYB5TA OR; -/METH500TA PO; -/ROPI5TA PO; +BACL1TAB9 OR; +CYMB1CAP5 OR; +FENT12DI12 TOP; -FENT12PA TOP; +GLYB1TAB29 OR; +HYDR-3715 PO; +IBUP100S44 PO; -IBUP100SUS PO; -LR 1,000 ML IV ONE; +METH1TAB40 PO; +NEXI1CAP3 PO; +NICO14DI20 EXT; -NICO14PA EXT; -NORCOTAB PO; -PERCOCET PO; +REQU1TAB15 PO; +TRIA0.1C60 TOP; -TRIA1CR TOP; +TRIC145T19 PO
--- NOTE | 2018-07-08 00:51 | ECWPNPC ---
PATIENT NAME: VASYL LEA : 1980 GENDER: FEMALE VISIT DATE: 06/23/2018 DISCHARGE DATE: 06/23/18 1047 VISIT LOCKED DATE TIME: PHYSICIAN: VERONICA CAR RESOURCE: VERONICA CAR REASON FOR APPOINTMENT 1. 6 WEEKS HISTORY OF PRESENT ILLNESS HISTORY OF PRESENT ILLNESS: HERE FOR ROUTINE F/U AND MEDICINE MANAGEMENT FOR CHRONIC GENERALIZED NECK AND LOW BACK PAIN.HISTORY OF LOW BACK SURGERY IN 2009.PAIN WORSENED AFTER SURGERY.HAD A LONG CONVERSATION TODAY ABOUT MEDICATION MANAGEMENT AND GOAL TO REDUCE DAILY NARCOTIC EXPOSURE.REVIEWED POTENTIAL SIDE EFFECTS OF DAILY OPIOD EXPOSURE.SHE SEEMS TO BE SOMEWHAT RECEPTIVE TO SLOWLY REDUCING MEDICATION.RATING PAIN VAS 8/10. HERE FOR ROUTINE F/U AND MEDICINE MANAGEMENT FOR CHRONIC GENERALIZED NECK AND LOW BACK PAIN.HISTORY OF LOW BACK SURGERY IN 2009.PAIN WORSENED AFTER SURGERY.HAD A LONG CONVERSATION TODAY ABOUT MEDICATION MANAGEMENT AND GOAL TO REDUCE DAILY NARCOTIC EXPOSURE.REVIEWED POTENTIAL SIDE EFFECTS OF DAILY OPIOD EXPOSURE.SHE SEEMS TO BE SOMEWHAT RECEPTIVE TO SLOWLY REDUCING MEDICATION.RATING PAIN VAS 8/10. PAIN THE PATIENT DESCRIBES THE PAIN... THE PATIENT DESCRIBES THE PAIN... THE PATIENT DESCRIBES THE PAIN... PAIN THE PATIENT DESCRIBES THE PAIN... THE PATIENT DESCRIBES THE PAIN... THE PATIENT DESCRIBES THE PAIN... PAIN THE PATIENT DESCRIBES THE PAIN... THE PATIENT DESCRIBES THE PAIN... THE PATIENT DESCRIBES THE PAIN... FALL RISK SCREENING: SCREENING : NO FALLS IN THE PAST YEAR. CURRENT MEDICATIONS TAKING ONE TOUCH ULTRA TEST STRIPS _ STRIPS DX: E11.9 _ TWICE DAILY AND NEEDED TAKING GLUCOMETER 1 GLUCOMETER DX: E11.9 USE TO TEST FSBS TAKING SEROQUEL 200 MG TABLET 1 TABLET ORALLY TWICE A DAY TAKING ZOFRAN ODT 4 MG TABLET DISINTEGRATING DIRECTED ORALLY EVERY 4 HOURS NEEDED FOR NAUSEA, NOTES: NOT LATELY TAKING NARCAN 4 MG/0.1ML LIQUID DIRECTED NASALLY USE DIRECTED PRN FOR RESP DISTRESS WITH OPIOID USE TAKING LATUDA 20 MG TABLET 1 TABLET ORALLY BEFORE BEDTIME TAKING BD ULTRA-FINE PEN NEEDLES 32G 4MM _ DIRECTED DX: E11.9 WITH LANTUS PEN TAKING BD ULTRA-FINE PEN NEEDLES 4 MM NANNO PEN NEEDLE USE DIRECTED WITH LANTUS PEN TAKING CRESTOR 40 MG TABLET 1 TABLET ORALLY ONCE A DAY TAKING DIFLUCAN 150 MG TAB TAKE ONE TABLET BY MOUTH ONCE NEEDED FOR YEAST INFECTION TAKING REQUIP 0.5 MG TABLET 3 TABS ORALLY ONCE A DAY BEFORE BEDTIME TAKING CYCLOBENZAPRINE HCL 10 MG TABLET 1 TABLET NEEDED ORALLY THREE TIMES A DAY TAKING LISINOPRIL 2.5 MG TABLET 1 TABLET ORALLY ONCE A DAY TAKING BYDUREON BCISE 2 MG INJECTION SUSPENSION EXTENDED RELEASE DIRECTED SUBCUTANEOUS WEEKLY TAKING GLIMEPIRIDE 1 MG TABLET TAKE ONE TABLET BY MOUTH EVERY DAY WITH BREAKFAST OR FIRST MAIN MEAL ORALLY ONCE A DAY TAKING ONE TOUCH ULTRA TEST STRIPS DX 250.00 STRIPS DIRECTED - TWICE A DAY TAKING PEN NEEDLES 31G X 8 MM MISCELLANEOUS DIRECTED SUBCUTANEOUSLY DAILY WITH VICTOZA PEN. DX: Z79.4 TAKING LANCETS - MISCELLANEOUS 1 LANCET DX E 11.9 TWICE DAILY TAKING LANTUS SOLOSTAR 100 UNIT/ML SOLUTION PEN-INJECTOR 75 UNITS SUBCUTANEOUS BEFORE BEDTIME TAKING COLACE 100 MG CAPSULE 1 CAPSULE NEEDED ORALLY TWICE DAILY, NOTES: NOT LATELY TAKING OXYCODONE HCL 15 MG TABLET 1 TABLET NEEDED ORALLY EVERY 6 HRS MDD 4 TAKING FENTANYL 50 MCG/HR PATCH 72 HOUR 1 PATCH TO SKIN TRANSDERMAL EVERY 72 HRS MDD=1 TAKING GABAPENTIN 800 MG TABLET 1 CAPSULE ORALLY THREE TIMES A DAY TAKING METHOCARBAMOL 750 MG TABLET 1 TABLET ORALLY THREE TIMES DAILY TAKING JARDIANCE 25 MG TABLET 1 TABLET ORALLY ONCE A DAY TAKING TRAZODONE HCL 50 MG TABLET 1 TABLET AT BEDTIME NEEDED ORALLY ONCE A DAY NOT-TAKING DIFLUCAN 150 MG TABLET 1 TABLET ORALLY ONCE NEEDED FOR YEAST INFECTION NOT-TAKING LAMICTAL 25 MG TABLET 3 TABLET ORALLY ONCE A DAY, NOTES: HAD A RASH MEDICATION LIST REVIEWED AND RECONCILED WITH THE PATIENT PAST MEDICAL HISTORY DM2 DEPRESSION/ANXIETY/BIPOLAR 2 HYPERLIPIDEMIA CHRONIC BACK PAIN, FOLLOWS WITH PAINCLINIC, [facility] RECURRENT NEPHROLITHIASIS - URO MIGRAINES - 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 MORBID OBESITY NICOTINE DEP EKG 02/16 LAE, INCOMP RBBB CORDELIA 02/16 FEV1 2.65 FE DEF ANEMIA URETERAL STONE MIGRAINES RENAL LITHIASIS IRON DEFICIENCY ANEMIA VITAMIN D DEFICIENCY HEART MURMUR ALLERGIES PENICILLIN (FOR ALLERGIES USE ONLY): RASH - ALLERGY ENVIRONMENTAL: NASAL CONGESTION - ALLERGY LAMICTAL: RASH - ALLERGY SURGICAL HISTORY CHOLECYSTECTOMY 2001 C SECTION 2 BACK SURGERY 12/2009 TUBAL LIGATION 2011 L ESWL - CARRIE 04/06/13 KIDNEY STONE 09/2014 UTERINE D&C, ABLATION 06/2018 FAMILY HISTORY FATHER: , OF PANCREATIC CA MOTHER: ALIVE, T2DM, HLD, CAD, CAROTID STENOSIS, RENAL DISEASE SIBLINGS: ALIVE, NO KNOWN MEDICAL PROBLEMS PATERNAL GRAND FATHER: , UNKNOWN PATERNAL GRAND MOTHER: , UNKNOWN MATERNAL GRAND FATHER: , OF [place] MATERNAL GRAND MOTHER: , OF STROKE IN 50S 6 BROTHER(S) , 5 SISTER(S) . 1 SON(S) , 5 DAUGHTER(S) - HEALTHY. FATHER OF PANCREATIC CANCER,. SOCIAL HISTORY GENERAL: TOBACCO USE ARE YOU A:CURRENT SMOKER ARE YOU INTERESTED IN QUITTING?NOT READY TO QUIT COUNSELED THE PATIENT ON SMOKING EFFECTS, EDUCATION DANRHTAL75/29/2019 HOW MANY CIGARETTES A DAY DO YOU SMOKE?11-20 HOW SOON AFTER YOU WAKE UP DO YOU SMOKE YOUR FIRST CIGARETTE?WITHIN 5 MIN HOW OFTEN DO YOU SMOKE CIGARETTES?EVERY DAY PATIENT COUNSELED ON THE DANGERS OF TOBACCO USE AND URGED TO QUIT:06/23/2018 LATEX QUESTIONNAIRE LATEX ALLERGY : HAVE YOU EVER DEVELOPED ANY TYPE OF REACTION AFTER HANDLING LATEX PRODUCTS SUCH RUBBER GLOVES, CONDOMS, DIAPHRAGMS, BALLOONS, SOCKS, OR UNDERWEAR?NO LATEX ALLERGY : HAVE YOU EVER DEVELOPED ANY TYPE OF REACTION DURING OR AFTER DENTAL APPOINTMENT, VAGINAL/RECTAL EXAMINATION, SURGICAL PROCEDURE, OR ANY OTHER EXPOSURE?NO LATEX RISK : HAVE YOU EVER HAD ANY DIFFICULTY BREATHING OR HIVES AFTER EATING OR HANDLING ANY FRUITS, OR VEGETABLES; SUCH KIWI, BANANAS, STONE FRUITS, OR CHESTNUTSNO LATEX RISK : DO YOU HAVE A PREVIOUS PERSONAL HISTORY OF MORE THAN NINE SURGERIES, SPINA BIFIDA, OR REPEATED CATHERTIZATIONS? NO LATEX RISK : ARE YOU FREQUENTLY EXPOSED TO LATEX PRODUCTS IN YOUR OCCUPATION?NO DATE ASKED : 06/23/2018 BMI CARE GOAL FOLLOW-UP ABOVE NORMAL BMI FOLLOW-UPDIETARY MANAGEMENT EDUCATION, GUIDANCE, AND COUNSELING ALCOHOL SCREENING DID YOU HAVE A DRINK CONTAINING ALCOHOL IN THE PAST YEAR?NO POINTS0 INTERPRETATIONNEGATIVE RECREATIONAL DRUG USE DRUG USE?NO CAFFEINE CAFFEINE USE?YES HOW OFTEN AND HOW MUCH? 2 CUPS PER DAY SEXUAL HX HAD SEX IN THE LAST 12 MONTHS (VAGINAL, ORAL, OR ANAL)?NO HAVE YOU EVER HAD AN STD?NO LMP:07/20/16 HIV / HEP-C SCREENING HIV TEST OFFERED TO PATIENT:YES DATE OFFERED:05/27/2016 TEST ACCEPTED:NO REASON:PATIENT DECLINED HEP-C TEST OFFERED TO PATIENT:YES N/A DATE OFFERED:10/09/2016 TEST ACCEPTED:NO REASON:PATIENT DECLINED JEW [id number] SCIENTOLOGY LANGUAGE LANGUAGES SPOKEN:[place] EDUCATION LEVEL OF EDUCATION:[employer] 8TH GRADE LEARNING BARRIERS / SPECIAL NEEDS CHANGE FROM LAST VISIT?NO BARRIERS TO LEARNING?YES COMMENTS READING HEARING IMPAIRED?NO VISION IMPAIRED?YES :CORRECTIVE LENSES COGNITIVELY IMPAIRED?NO READINESS TO LEARN?YES LEARNING PREFERENCES?YES :TAPES/VIDEOS, BOOKLETS, HANDOUTS, CLASSES, DEMONSTRATION/VERBAL INSTRUCTION, OTHER (PLEASE COMMENT) LEARNING CAPABILITIES PRESENT?YES EMOTIONAL BARRIERS?NO SPECIAL DEVICES?NO THIRD HELPER NEEDED?NO DOMESTIC VIOLENCE DO YOU FEEL SAFE IN YOUR ENVIRONMENT?YES OCCUPATION: DISABLED. DIET: CARBOHYDRATE CONTROLLED. EXERCISE: WALKS, DAILY. MARITAL STATUS: . NEW PATIENT PAIN DIARY TODAY'S VISIT NOTES, FROM 0-10, WHAT LEVEL IS YOUR PAIN TODAY? 0. PAIN CLINIC PFS, CLERGY, PUBLIC HEALTH REFERRALS PFS REFERRAL NEEDED?NO CLERGY REFERRAL NEEDED?NO PUBLIC HEALTH REFERRAL NEEDED?NO WAS THE PROVIDER NOTIFIED OF ANY PERTINENT INFO?YES HAS THE PATIENT BEEN EDUCATED REGARDING HIS/HER PLAN OF CARE?YES HAS THE PATIENT BEEN EDUCATED REGARDING PAIN, THE RISK FOR PAIN, THE IMPORTANCE OF EFFECTIVE PAIN MANAGEMENT, AND THE PAIN ASSESSMENT PROCESS?YES ADVANCE DIRECTIVE ADVANCE DIRECTIVE DISCUSSED WITH PATIENT:YES DECLINED HCP INFORMATION. REVIEWED WITH PATIENT 01/14/18 0920 JSREVIEWED WITH PATIENT 05/03/18 1514 JS. HOSPITALIZATION/MAJOR DIAGNOSTIC PROCEDURE SURGERY RELATED REVIEW OF SYSTEMS REVIEWED BY: PROVIDER: VERONICA SAEED . CONSTITUTIONAL: ANY CHANGE IN YOUR MEDICAL CONDITION? NO . CHILLS NO . FEVER NO . INFECTION: DO YOU HAVE NEW INFECTIONS? NO . DO YOU HAVE HISTORY OF MRSA? NO . MUSCULOSKELETAL: ANY NEW PATTERNS OF PAIN OR NUMBNESS? YES, LEFT GREAT TOE HAS NERVE PAIN . GASTROENTEROLOGY: ANY NEW CHANGE IN BOWEL CONTROL? NO . GENITOURINARY: ANY NEW CHANGE IN BLADDER CONTROL? NO . IS THERE A CHANCE YOU COULD BE ? NO . HEMATOLOGY/LYMPH: DO YOU TAKE ANY BLOOD THINNERS? (FOR EXAMPLE- COUMADIN, PLAVIX, AGGRENOX, PLATEL, PRADAXA, OR XARELTO) NO . WHEN WAS YOUR LAST DOSE? DATE: TIME: . NEUROLOGY: HAVE YOU FALLEN IN THE PAST 12 MONTHS? YES, PT STATES THAT SHE WAS AT HOME, SLEEP WALKING, FELL , NO REPORT TO ED, NO INJURY . ANY NEW EXTREMITY NUMBNESS OR WEAKNESS? YES . CARDIOLOGY: DO YOU HAVE A PACEMAKER OR DEFIBRILLATOR? NO . RESPIRATORY: HAVE YOU BEEN SICK IN THE PAST WEEK? NO . FEVER NO . FLU LIKE SYMPTOMS? NO . COUGH NO . INTEGUMENTARY: DO YOU HAVE ANY RASHES OR OPEN SORES? NO . ALLERGIC/IMMUNO: ARE YOU ALLERGIC TO IV DYE? NO . ANY NEW ALLERGIES? NO . PSYCHIATRIC: DO YOU HAVE THOUGHTS OF HURTING YOURSELF OR SOMEONE ELSE? NO . ARE YOU ABUSED, NEGLECTED, OR IN AN UNSAFE ENVIRONMENT? NO . ENDOCRINOLOGY: ARE YOU DIABETIC? YES, MANAGED WITH DIET . OTHER: DO YOU NEED ANY PRESCRIPTIONS? YES, OXYCODONE AND FENTANYL . IF YES, PLEASE LIST: ____ . ANY NEW PROBLEMS WITH YOUR MEDICATIONS? NO . WHEN DID YOU LAST EAT? ____ . WHEN DID YOU LAST DRINK? ____ . WHAT DID YOU LAST DRINK? ____ . NAME OF PERSON DRIVING YOU HOME? ____ . DO YOU HAVE ANY OTHER QUESTIONS OR CONCERNS NO . VITAL SIGNS WT 214.3 LBS, HT 66 IN, BMI 34.59 INDEX, BP 127/66 MM HG, HR 117 /MIN, RR 18 /MIN, TEMP 98.3 F, OXYGEN SAT % 96%, SAFE IN ENV? (Y/N) Y, NA INITIALS AW 0923, REVIEWED BY: JIM. EXAMINATION GENERAL EXAMINATION: GENERAL APPEARANCE:AWAKE,ALERT ,PLEAASANT . PSYCHAFFECT NORMAL . LUNGS:LUNG PRESCOTT ARE CLEAR TO AUSCULTATION BILATERALLY. GOOD MOVEMENT OF AIR . HEART:S1, S2 IN A REGULAR RATE AND RHYTHM. NO SIGNIFICANT MURMURS, RUBS OR GALLOPS NOTED . ASSESSMENTS LUMBAR DISC DISEASE WITH RADICULOPATHY - M51.16 (PRIMARY) NEUROPATHY - G62.9 TREATMENT LUMBAR DISC DISEASE WITH RADICULOPATHY CONTINUE COLACE CAPSULE, 100 MG, 1 CAPSULE NEEDED, ORALLY, TWICE DAILY, NOTES: NOT LATELY REFILL OXYCODONE HCL TABLET, 15 MG, 1 TABLET NEEDED, ORALLY, EVERY 6 HRS MDD 4, 30 DAY(S), 120, REFILLS 0 REFILL FENTANYL PATCH 72 HOUR, 50 MCG/HR, 1 PATCH TO SKIN, TRANSDERMAL, EVERY 72 HRS MDD=1, 30 DAY(S), 10, REFILLS 0 CONTINUE GABAPENTIN TABLET, 800 MG, 1 CAPSULE, ORALLY, THREE TIMES A DAY CONTINUE METHOCARBAMOL TABLET, 750 MG, 1 TABLET, ORALLY, THREE TIMES DAILY START AMITRIPTYLINE HCL TABLET, 25 MG, DIRECTED, ORALLY, BEFORE BEDTIME, 30 DAYS, 30, REFILLS 2 NOTES: ISTOP REGISTRY REVIEWED AND DEMONSTRATES COMPLLIANCE. (REF #[id number] ) BRINGS IN MEDICATIONS WHICH IS APPROPRIATE FOR WHAT WAS DISPENSED. RECENT URINE TOXICOLOGY REVIEWED. NO UNAUTHORIZED MEDICATIONS. NO ILLICIT SUBSTANCES AND PRESCRIBED MEDICATIONS WERE PRESENT. , RISKS AND BENEFITS OF NARCOTIC/OPIOD MEDICATIONS WERE REVIEWED WITH PATIENT - THIS INCLUDES BUT IS NOT LIMITED TO RISK OF DEPENDANCE/DEVELOPMENT OF ADDICTION, MOOD DISTURBANCE AND DEPRESSION, OSTEOPOROSIS, HORMONAL AND LABIDAL CHANGES, RESPIRATORY DEPRESSION AND . PATIENT IS ADVISED NOT TO DRIVE OR DRINK ALCOHOL WHILE ON THESE MEDICATIONS. PREVENTIVE MEDICINE PAIN CLINIC TEACHING: MEDICATIONS PRINTED AND REVIEWED INFORMATION ON NEW MEDICATION, AMITRIPTYLINE, WITH PATIENT. PATIENT VERBALIZED AN UNDERSTANDING. ADRIENNE CORTEZ 06/23/2018 10:48:07 AM > . PROCEDURE CODES FA211 ESTABILISHED PATIENT [facility] CHARGE DISPOSITION & COMMUNICATION FOLLOW UP 2 MONTHS ELECTRONICALLY SIGNED BY DARLIN POSADA ON 07/07/2018 AT 05:05 PM EDT DISCLAIMER : THIS IS A VISIT SUMMARY EXTRACTED FROM THE [employer] CHART. IT IS NOT A COPY OF THE [employer] PROGRESS NOTE. KAVON
== END ==
LOC: M PAIN 09:15
PROVIDERS: ATTEND Nurse Practitioner Family
DX: M51.16 Intervertebral disc disorders with radiculopathy, lumbar region (principal); G89.29 Other chronic pain; G62.9 Polyneuropathy, unspecified; E11.9 Type 2 diabetes mellitus without complications; Z86.59 Personal history of other mental and behavioral disorders; E78.5 Hyperlipidemia, unspecified; G43.909 Migraine, unspecified, not intractable, without status migrainosus; D50.9 Iron deficiency anemia, unspecified; F17.210 Nicotine dependence, cigarettes, uncomplicated; Z88.0 Allergy status to penicillin; Z88.8 Allergy status to other drugs, medicaments and biological substances; Z79.4 Long term (current) use of insulin; Z79.891 Long term (current) use of opiate analgesic; Z79.899 Other long term (current) drug therapy

== ENCOUNTER → 2018-07-14 | Outpatient (CLI) | payer MEDICAID, MEDICARE ==
[~2018-07-14] MED LIST changes: -CRES20TA PO; +CRES20TA2 PO
--- NOTE | 2018-07-15 02:22 | REP ---
Clinical: Upper respiratory tract symptoms . Comparison: 03/31/2013 . Technique: PA and lateral. Findings: The mediastinum and cardiac silhouette are normal. The lung prasad are clear and without acute consolidation, effusion, or pneumothorax. The skeletal structures are intact and normal. Impression: 1. No acute cardiopulmonary process. Electronically Signed by Jacob Sibley MD 07/15/2018 02:14 A
== END ==
LOC: M RAD 10:10
PROVIDERS: ATTEND Family Medicine
DX: J06.9 Acute upper respiratory infection, unspecified (principal)
CPT/HCPCS: 71046; G0463

== ENCOUNTER → 2018-08-31 | Outpatient (CLI) | payer MEDICARE ==
[2018-08-31 11:47] LABS: BLOOD UREA NITROGEN 7 MG/DL (7-18); C REACTIVE PROTEIN QUANTITATIV 0.99 MG/DL (0.00-0.30); CALCIUM LEVEL 8.7 MG/DL (8.5-10.1); CARBON DIOXIDE LEVEL 27 MEQ/L (21-32); CHLORIDE LEVEL 108 MEQ/L (98-107); CREATININE FOR GFR 0.87 MG/DL (0.55-1.30); GLOMERULAR FILTRATION RATE > 60.0 (>60); GLUCOSE, FASTING 131 MG/DL (70-100); POTASSIUM SERUM 4.3 MEQ/L (3.5-5.1); SODIUM LEVEL 143 MEQ/L (136-145)
[2018-08-31 11:52] LABS: VITAMIN B12 LEVEL 598 PG/ML (247-911)
[2018-08-31 11:54] LABS: CREATININE, URINE 80.3 MG/DL; MALB URINE SIEMENS < 5.0 MG/L; MAU/CREAT RATIO 6.2 MCG/MG (0.0-30.0)
== END ==
LOC: M LAB 10:04
PROVIDERS: ATTEND Family Medicine
DX: M79.641 Pain in right hand (principal); E11.65 Type 2 diabetes mellitus with hyperglycemia; G63 Polyneuropathy in diseases classified elsewhere

== ENCOUNTER 2018-09-19 15:35 | Emergency (ER) | payer MEDICAID, MEDICARE ==
[~2018-09-19] VITALS: Ht 167.6 cm; Wt 104.5 kg
[2018-09-19] MEDS ORDERED: ROBA750T4 PO (15:43)
[2018-09-19] MEDS ORDERED: KETOROLAC 30 MG/ML VIAL (J1885) IV ONE (17:00)
[2018-09-19] MEDS ORDERED: ONDANSETRON 4MG/2ML VIAL (J2405) IV ONE (17:00)
[2018-09-19] MEDS ORDERED: NS 1,000 ML IV ONE (17:00)
[2018-09-19 17:28] LABS: BASO # 0.1 10^3/uL (0.0-0.2); BASO % 0.8 % (0.0-1.0); EOS # 0.2 10^3/uL (0.0-0.50); EOS % 1.9 % (0.0-3.0); HEMATOCRIT 50.3 % (36.0-47.0); HEMOGLOBIN 16.5 g/dl (12.0-15.5); LYMPH # 2.9 10^3/uL (1.5-4.5); LYMPH % 25.6 % (24.0-44.0); MEAN CORPUSCULAR HEMOGLOBIN 29.2 pg (27.0-33.0); MEAN CORPUSCULAR HGB CONC 32.8 g/dl (32.0-36.5); MONO # 0.7 10^3/uL (0.0-0.8); MONO % 6.4 % (0.0-5.0); NEUTROPHILS # 7.4 10^3/uL (1.8-7.7); NEUTROPHILS % 64.8 % (36.0-66.0); PLATELET COUNT, AUTOMATED 235 10^3/uL (150-450); RED BLOOD COUNT 5.65 10^6/uL (4.00-5.40); WHITE BLOOD COUNT 11.4 10^3/uL (4.0-10.0)
[2018-09-19 17:57] LABS: ALBUMIN 4.1 GM/DL (3.2-5.2); BILIRUBIN,DIRECT 0.2 MG/DL (0.0-0.2); BILIRUBIN,TOTAL 0.6 MG/DL (0.2-1.0); TOTAL PROTEIN 7.6 GM/DL (6.4-8.2)
[2018-09-19] MEDS: MORPHINE 4 MG/ML 1ML VIAL/SYRINGE (J2270) IV PRN ×2 (18:09→19:48)
[2018-09-19] MEDS ORDERED: MORPHINE 4 MG/ML 1ML VIAL/SYRINGE (J2270) IV ONE (19:45)
[2018-09-19] MEDS ORDERED: TAMSULOSIN 0.4 MG CAP PO ONE (19:45)
--- NOTE | 2018-09-19 20:19 | REPVR ---
EXAM: CT Abdomen and Pelvis Without Contrast EXAM DATE/TIME: 09/19/2018 4:59 PM CLINICAL HISTORY: 38 years old, female; Abdominal pain; Flank; Right; Additional info: R flank pain, eval for urolithiasis TECHNIQUE: Imaging protocol: Axial computed tomography images of the abdomen and pelvis without contrast. Coronal and sagittal reformatted images were created and reviewed. Radiation optimization: All CT scans at this facility use at least one of these dose optimization techniques: automated exposure control; mA and/or kV adjustment per patient size (includes targeted exams where dose is matched to clinical indication); or iterative reconstruction. COMPARISON: CT ABD PELVIS W/O CONTRAST 05/07/2018 7:25 PM FINDINGS: Lungs: A few small lung nodules are visualized, without significant progression. Within the right middle lobe on series 201 image 1, there is a 4 mm nodule. A few small stable nodules are also visualized within the right lower lobe. ABDOMEN: Liver: There is mild hepatomegaly. The liver measures 18.3 cm in the craniocaudad dimension. Gallbladder and bile ducts: Surgical clips are identified within the gallbladder fossa, compatible with cholecystectomy. Pancreas: Normal contour. No ductal dilation. Spleen: A small splenule is visualized. No splenomegaly. Adrenals: No mass. Kidneys and ureters: Medullary nephrocalcinosis is again visualized bilaterally. There is no hydronephrosis bilaterally. No obstructive calculi are identified within the ureters bilaterally. Stomach and bowel: Moderate fecal material identified within the colon. No bowel obstruction. Evaluation of the limited by the absence of oral contrast. Appendix: No evidence of appendicitis. PELVIS: Bladder: Unremarkable as visualized. Reproductive: Surgical clips are visualized within the adnexa bilaterally. Foci of gas are identified within the vaginal fornix. ABDOMEN and PELVIS: Intraperitoneal space: No free air. Bones/joints: Hypertrophic degenerative changes are noted within the spine. A posterior disc protrusion is again visualized at L4-5, with severe narrowing of the thecal sac. Moderate narrowing of the thecal sac is visualized at L5-S1. Bilateral neural foraminal narrowing identified at L5-S1, with left neural foraminal narrowing at L4-5. Soft tissues: There is mild soft tissue swelling of the ventral abdominal subcutaneous tissues with a cluster of foci of gas within these soft tissues on the left side. A small fat-containing umbilical hernia is visualized. There is eventration of the ventral abdominal wall. Vasculature: No abdominal aortic aneurysm. Lymph nodes: The lymph nodes are visualized bilaterally, without progression. Small intrapelvic lymph nodes are identified, without significant lymphadenopathy. IMPRESSION: 1. Medullary nephrocalcinosis is again visualized bilaterally. There is no hydronephrosis bilaterally. No obstructive calculi are identified within the ureters bilaterally. 2. There is mild soft tissue swelling of the ventral abdominal subcutaneous tissues with a cluster of foci of gas within these soft tissues on the left side. Clinical correlation is recommended. 3. There is mild hepatomegaly. 4. A posterior disc protrusion is again visualized at L4-5, with severe narrowing of the thecal sac. Moderate narrowing of the thecal sac is visualized at L5-S1. 5. A few small lung nodules are visualized, without significant progression. 6. Additional findings described above. Electronically signed by: Carlito Greene On 09/19/2018 20:18:39 PM
[2018-09-19] MEDS ORDERED: LIDOCAINE 5% (LIDODERM) PATCH TD ONE (20:45)
[2018-09-19 20:57] VITALS: BP 120/82
[2018-09-19] MEDS ORDERED: **NOTE PATIENT COMMENT** MISC XX SCH (21:00)
[2018-09-20] MEDS ORDERED: **NOTE PATIENT COMMENT** MISC XX ONE (09:00)
--- NOTE | 2018-09-21 13:47 | ED PDOC ---
Post-Departure Follow-Up Dr Deysi tabares faxed formal report of ct abd/p for fu Franki Viramontes MD Sep 21, 2018 13:47
== END 2018-09-19 20:59 | disposition home or self-care (01) ==
LOC: M ED 15:35
DX: S39.012A Strain of muscle, fascia and tendon of lower back, initial encounter (principal); X58.XXXA Exposure to other specified factors, initial encounter; Y92.89 Other specified places as the place of occurrence of the external cause; E11.9 Type 2 diabetes mellitus without complications; E78.5 Hyperlipidemia, unspecified; Z87.442 Personal history of urinary calculi; Z79.899 Other long term (current) drug therapy; Z88.0 Allergy status to penicillin; Z88.8 Allergy status to other drugs, medicaments and biological substances; F17.210 Nicotine dependence, cigarettes, uncomplicated
CPT/HCPCS: 36415; 74176; 80047; 80076; 81001; 82150; 83690; 85025; 96361; 96374; 96375; 96376; 99284; J1885; J2270; J2405

== ENCOUNTER → 2018-11-07 | Outpatient (CLI) | payer MEDICARE ==
[~2018-11-07] MED LIST changes: +METH750T2; -METH75TA; +ROBA750T4 PO
--- NOTE | 2018-11-23 00:22 | ECWPNPC ---
PATIENT NAME: VASYL LEA : 1980 GENDER: FEMALE VISIT DATE: 11/07/2018 DISCHARGE DATE: 11/07/18 1029 VISIT LOCKED DATE TIME: PHYSICIAN: VERONICA CAR RESOURCE: VERONICA CAR REASON FOR APPOINTMENT 1. NECK/BACK HISTORY OF PRESENT ILLNESS HISTORY OF PRESENT ILLNESS: HERE FOR ROUTINE F/U AND MEDICINE MANAGEMENT FOR CHRONIC GENERALIZED NECK AND LOW BACK PAIN.HISTORY OF LOW BACK SURGERY IN 2009.PAIN WORSENED AFTER SURGERY.HAD A LONG CONVERSATION TODAY ABOUT MEDICATION MANAGEMENT AND GOAL TO REDUCE DAILY NARCOTIC EXPOSURE.REVIEWED POTENTIAL SIDE EFFECTS OF DAILY OPIOD EXPOSURE.SHE SEEMS TO BE SOMEWHAT RECEPTIVE TO SLOWLY REDUCING MEDICATION.RATING PAIN VAS 8/10. REPORTS POOR TOLERANCE TO INJECTION TRIALS HER FOR CHRONIC PAIN AND REPORTS SEVERE CRYING AND ANXIETY WITH THIS MODALITY. PAIN THE PATIENT DESCRIBES THE PAIN... THE PATIENT DESCRIBES THE PAIN... THE PATIENT DESCRIBES THE PAIN... THE PATIENT DESCRIBES THE PAIN... FALL RISK SCREENING: SCREENING :NO FALLS REPORTED IN THE LAST YEAR CURRENT MEDICATIONS TAKING ONE TOUCH ULTRA TEST STRIPS _ STRIPS DX: E11.9 _ TWICE DAILY AND NEEDED TAKING GLUCOMETER 1 GLUCOMETER DX: E11.9 USE TO TEST FSBS TAKING SEROQUEL 200 MG TABLET 1 TABLET ORALLY TWICE A DAY TAKING ZOFRAN ODT 4 MG TABLET DISINTEGRATING DIRECTED ORALLY EVERY 4 HOURS NEEDED FOR NAUSEA, NOTES: NOT LATELY TAKING NARCAN 4 MG/0.1ML LIQUID DIRECTED NASALLY USE DIRECTED PRN FOR RESP DISTRESS WITH OPIOID USE TAKING LATUDA 40 MG TABLET 1 TABLET ORALLY BEFORE BEDTIME TAKING BD ULTRA-FINE PEN NEEDLES 32G 4MM _ DIRECTED DX: E11.9 WITH LANTUS PEN TAKING BD ULTRA-FINE PEN NEEDLES 4 MM NANNO PEN NEEDLE USE DIRECTED WITH LANTUS PEN TAKING REQUIP 0.5 MG TABLET 3 TABS ORALLY ONCE A DAY BEFORE BEDTIME TAKING ONE TOUCH ULTRA TEST STRIPS DX 250.00 STRIPS DIRECTED - TWICE A DAY TAKING PEN NEEDLES 31G X 8 MM MISCELLANEOUS DIRECTED SUBCUTANEOUSLY DAILY WITH VICTOZA PEN. DX: Z79.4 TAKING LANCETS - MISCELLANEOUS 1 LANCET DX E 11.9 TWICE DAILY TAKING TRAZODONE HCL 50 MG TABLET 1 TABLET AT BEDTIME NEEDED ORALLY ONCE A DAY TAKING COLACE 100 MG CAPSULE 1 CAPSULE NEEDED ORALLY TWICE DAILY, NOTES: NOT LATELY TAKING GABAPENTIN 800 MG TABLET 1 CAPSULE ORALLY THREE TIMES A DAY TAKING DIFLUCAN 150 MG TAB TAKE ONE TABLET BY MOUTH ONCE NEEDED FOR YEAST INFECTION ORALLY ONCE A DAY TAKING CHANTIX STARTING MONTH MADISYN 0.5 MG X 11 & 1 MG X 42 TABLET DIRECTED ORALLY DIRECTED ON PACKAGING TAKING CRESTOR 40 MG TABLET 1 TABLET ORALLY ONCE A DAY TAKING LEVOCETIRIZINE DIHYDROCHLORIDE 5 MG TABLET 1 TABLET IN THE EVENING ORALLY ONCE A DAY TAKING MONTELUKAST SODIUM 10 MG TABLET 1 TABLET ORALLY ONCE A DAY TAKING BYDUREON BCISE 2 MG INJECTION SUSPENSION EXTENDED RELEASE DIRECTED SUBCUTANEOUS WEEKLY TAKING LANTUS SOLOSTAR 100 UNIT/ML SOLUTION PEN-INJECTOR 75 UNITS SUBCUTANEOUS BEFORE BEDTIME TAKING JARDIANCE 25 MG TABLET 1 TABLET ORALLY ONCE A DAY TAKING GLIMEPIRIDE 2 MG TABLET TAKE ONE TABLET BY MOUTH EVERY DAY WITH BREAKFAST OR FIRST MAIN MEAL ORALLY ONCE A DAY TAKING METHOCARBAMOL 750 MG TABLET 1 TABLET ORALLY THREE TIMES DAILY TAKING FENTANYL 50 MCG/HR PATCH 72 HOUR 1 PATCH TO SKIN TRANSDERMAL EVERY 72 HRS MDD=1 TAKING OXYCODONE HCL 15 MG TABLET 1 TABLET NEEDED ORALLY EVERY 6 HRS MDD 4 TAKING AMITRIPTYLINE HCL 25 MG TABLET DIRECTED ORALLY BEFORE BEDTIME TAKING BYDUREON BCISE 2 MG/0.85ML AUTO-INJECTOR INJECT UNDER THE SKIN WEEKLY NOT-TAKING LISINOPRIL 2.5 MG TABLET 1 TABLET ORALLY ONCE A DAY NOT-TAKING FLUTICASONE PROPIONATE 50 MCG/ACT SUSPENSION 1 SPRAY IN EACH NOSTRIL NASALLY ONCE A DAY NOT-TAKING CYCLOBENZAPRINE HCL 10 MG TABLET 1 TABLET NEEDED ORALLY THREE TIMES A DAY NOT-TAKING DIFLUCAN 150 MG TABLET 1 TABLET ORALLY ONCE NEEDED FOR YEAST INFECTION NOT-TAKING LAMICTAL 25 MG TABLET 3 TABLET ORALLY ONCE A DAY, NOTES: HAD A RASH MEDICATION LIST REVIEWED AND RECONCILED WITH THE PATIENT PAST MEDICAL HISTORY DM2 DEPRESSION/ANXIETY/BIPOLAR 2 HYPERLIPIDEMIA CHRONIC BACK PAIN, FOLLOWS WITH PAINCLINIC, [facility] RECURRENT NEPHROLITHIASIS - URO MIGRAINES - 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 MORBID OBESITY NICOTINE DEP EKG 02/16 LAE, INCOMP RBBB CORDELIA 02/16 FEV1 2.65 FE DEF ANEMIA URETERAL STONE MIGRAINES RENAL LITHIASIS IRON DEFICIENCY ANEMIA VITAMIN D DEFICIENCY HEART MURMUR ALLERGIES PENICILLIN (FOR ALLERGIES USE ONLY): RASH - ALLERGY ENVIRONMENTAL: NASAL CONGESTION - ALLERGY LAMICTAL: RASH - ALLERGY SURGICAL HISTORY CHOLECYSTECTOMY 2001 C SECTION 2 BACK SURGERY 12/2009 TUBAL LIGATION 2011 L ESWL - CARRIE 04/06/13 KIDNEY STONE 09/2014 UTERINE D&C, ABLATION 06/2018 FAMILY HISTORY FATHER: , OF PANCREATIC CA MOTHER: ALIVE, T2DM, HLD, CAD, CAROTID STENOSIS, RENAL DISEASE SIBLINGS: ALIVE, NO KNOWN MEDICAL PROBLEMS PATERNAL GRAND FATHER: , UNKNOWN PATERNAL GRAND MOTHER: , UNKNOWN MATERNAL GRAND FATHER: , OF 32 OF [place] MATERNAL GRAND MOTHER: , OF STROKE IN 50S 6 BROTHER(S) , 5 SISTER(S) . 1 SON(S) , 5 DAUGHTER(S) - HEALTHY. FATHER OF PANCREATIC CANCER,. SOCIAL HISTORY GENERAL: TOBACCO USE ARE YOU A:CURRENT SMOKER ARE YOU INTERESTED IN QUITTING?NOT READY TO QUIT COUNSELED THE PATIENT ON SMOKING EFFECTS, EDUCATION [id number]/29/2019 HOW MANY CIGARETTES A DAY DO YOU SMOKE?11-20 HOW SOON AFTER YOU WAKE UP DO YOU SMOKE YOUR FIRST CIGARETTE?WITHIN 5 MIN HOW OFTEN DO YOU SMOKE CIGARETTES?EVERY DAY PATIENT COUNSELED ON THE DANGERS OF TOBACCO USE AND URGED TO QUIT:06/23/2018 HIV / HEP-C SCREENING HIV TEST OFFERED TO PATIENT:YES DATE OFFERED:05/27/2016 TEST ACCEPTED:NO REASON:PATIENT DECLINED HEP-C TEST OFFERED TO PATIENT:YES N/A DATE OFFERED:10/09/2016 TEST ACCEPTED:NO REASON:PATIENT DECLINED EDUCATION LEVEL OF EDUCATION:[employer] 8TH GRADE DIET: CARBOHYDRATE CONTROLLED. LANGUAGE LANGUAGES SPOKEN:CHINESE DOMESTIC VIOLENCE DO YOU FEEL SAFE IN YOUR ENVIRONMENT?YES NEW PATIENT PAIN DIARY TODAY'S VISIT NOTES, FROM 0-10, WHAT LEVEL IS YOUR PAIN TODAY? 0. BMI CARE GOAL FOLLOW-UP ABOVE NORMAL BMI FOLLOW-UPDIETARY MANAGEMENT EDUCATION, GUIDANCE, AND COUNSELING RECREATIONAL DRUG USE DRUG USE?NO EXERCISE: WALKS, DAILY. LEARNING BARRIERS / SPECIAL NEEDS CHANGE FROM LAST VISIT?NO BARRIERS TO LEARNING?YES COMMENTS READING HEARING IMPAIRED?NO VISION IMPAIRED?YES :CORRECTIVE LENSES COGNITIVELY IMPAIRED?NO READINESS TO LEARN?YES LEARNING PREFERENCES?YES :TAPES/VIDEOS, BOOKLETS, HANDOUTS, CLASSES, DEMONSTRATION/VERBAL INSTRUCTION, OTHER (PLEASE COMMENT) LEARNING CAPABILITIES PRESENT?YES EMOTIONAL BARRIERS?NO SPECIAL DEVICES?NO MALT LOADER NEEDED?NO PAIN CLINIC PFS, CLERGY, PUBLIC HEALTH REFERRALS PFS REFERRAL NEEDED?NO CLERGY REFERRAL NEEDED?NO PUBLIC HEALTH REFERRAL NEEDED?NO WAS THE PROVIDER NOTIFIED OF ANY PERTINENT INFO?YES HAS THE PATIENT BEEN EDUCATED REGARDING HIS/HER PLAN OF CARE?YES HAS THE PATIENT BEEN EDUCATED REGARDING PAIN, THE RISK FOR PAIN, THE IMPORTANCE OF EFFECTIVE PAIN MANAGEMENT, AND THE PAIN ASSESSMENT PROCESS?YES LATEX QUESTIONNAIRE LATEX ALLERGY : HAVE YOU EVER DEVELOPED ANY TYPE OF REACTION AFTER HANDLING LATEX PRODUCTS SUCH RUBBER GLOVES, CONDOMS, DIAPHRAGMS, BALLOONS, SOCKS, OR UNDERWEAR?NO LATEX ALLERGY : HAVE YOU EVER DEVELOPED ANY TYPE OF REACTION DURING OR AFTER DENTAL APPOINTMENT, VAGINAL/RECTAL EXAMINATION, SURGICAL PROCEDURE, OR ANY OTHER EXPOSURE?NO LATEX RISK : HAVE YOU EVER HAD ANY DIFFICULTY BREATHING OR HIVES AFTER EATING OR HANDLING ANY FRUITS, OR VEGETABLES; SUCH KIWI, BANANAS, STONE FRUITS, OR CHESTNUTSNO LATEX RISK : DO YOU HAVE A PREVIOUS PERSONAL HISTORY OF MORE THAN NINE SURGERIES, SPINA BIFIDA, OR REPEATED CATHERIZATIONS? NO LATEX RISK : ARE YOU FREQUENTLY EXPOSED TO LATEX PRODUCTS IN YOUR OCCUPATION?NO DATE ASKED : 06/23/2018 CAFFEINE CAFFEINE USE?YES HOW OFTEN AND HOW MUCH? 2 CUPS PER DAY ADVANCE DIRECTIVE ADVANCE DIRECTIVE DISCUSSED WITH PATIENT:YES PT HAS HCP, ARIANNA LEA [phone], AND DAUGHTER BK LEA [phone] HOLINESS [id number] TENRIISM MARITAL STATUS: . ALCOHOL SCREENING DID YOU HAVE A DRINK CONTAINING ALCOHOL IN THE PAST YEAR?NO POINTS0 INTERPRETATIONNEGATIVE OCCUPATION: DISABLED. SEXUAL HX HAD SEX IN THE LAST 12 MONTHS (VAGINAL, ORAL, OR ANAL)?NO HAVE YOU EVER HAD AN STD?NO LMP:07/20/16 REVIEWED WITH PATIENT 01/14/18 0920 JSREVIEWED WITH PATIENT 05/03/18 1514 JSREVIEWED WITH PATIENT 11/07/18 0940 LAS. HOSPITALIZATION/MAJOR DIAGNOSTIC PROCEDURE SURGERY RELATED REVIEW OF SYSTEMS REVIEWED BY: PROVIDER: VERONICA SAEED . CONSTITUTIONAL: ANY CHANGE IN YOUR MEDICAL CONDITION? NO . CHILLS NO . FEVER NO . INFECTION: DO YOU HAVE NEW INFECTIONS? NO . DO YOU HAVE HISTORY OF MRSA? NO . MUSCULOSKELETAL: ANY NEW PATTERNS OF PAIN OR NUMBNESS? YES PT REPORTS AN INCREASE IN HER PAIN IN LOW BACK THAT RADIATES DOWN BOTH LEGS RIGHT > LEFT. THIS HAS BEEN GOING ON FOR PAST TWO MONTHS. . GASTROENTEROLOGY: ANY NEW CHANGE IN BOWEL CONTROL? NO . GENITOURINARY: ANY NEW CHANGE IN BLADDER CONTROL? NO . IS THERE A CHANCE YOU COULD BE ? NO . HEMATOLOGY/LYMPH: DO YOU TAKE ANY BLOOD THINNERS? (FOR EXAMPLE- COUMADIN, PLAVIX, AGGRENOX, PLATEL, PRADAXA, OR XARELTO) NO . WHEN WAS YOUR LAST DOSE? DATE: TIME: . NEUROLOGY: HAVE YOU FALLEN IN THE PAST 12 MONTHS? YES PT REPORTS SHE SLEEP WALKS, AND HAS FALLEN AT THAT TIME. NONE RECENT . ANY NEW EXTREMITY NUMBNESS OR WEAKNESS? NO . CARDIOLOGY: DO YOU HAVE A PACEMAKER OR DEFIBRILLATOR? NO . RESPIRATORY: HAVE YOU BEEN SICK IN THE PAST WEEK? NO . FEVER NO . FLU LIKE SYMPTOMS? NO . COUGH NO . INTEGUMENTARY: DO YOU HAVE ANY RASHES OR OPEN SORES? NO . ALLERGIC/IMMUNO: ARE YOU ALLERGIC TO IV DYE? NO . ANY NEW ALLERGIES? NO . PSYCHIATRIC: DO YOU HAVE THOUGHTS OF HURTING YOURSELF OR SOMEONE ELSE? NO . ARE YOU ABUSED, NEGLECTED, OR IN AN UNSAFE ENVIRONMENT? NO . ENDOCRINOLOGY: ARE YOU DIABETIC? YES . OTHER: DO YOU NEED ANY PRESCRIPTIONS? NO . IF YES, PLEASE LIST: ____ . ANY NEW PROBLEMS WITH YOUR MEDICATIONS? NO . WHEN DID YOU LAST EAT? ____ . WHEN DID YOU LAST DRINK? ____ . WHAT DID YOU LAST DRINK? ____ . NAME OF PERSON DRIVING YOU HOME? ____ . DO YOU HAVE ANY OTHER QUESTIONS OR CONCERNS NO . VITAL SIGNS WT 217.6 LBS, HT 66 IN, BMI 35.12 INDEX, BP 113/78 MM HG, REPEAT BP HR 106 REPEAT, HR 123 /MIN, RR 18 /MIN, TEMP 97.7 F, OXYGEN SAT % 97%, SAFE IN ENV? (Y/N) YES, NA INITIALS AW 0929, REVIEWED BY: DARIN NURSE KNOW ABOUT HR. 0940 RECHECKED APICAL HEART RATE, NOW IS 106. PT REPORTS SHE HAS HAD THIS CHECKED THROUGH A ACCOUNTING MACHINE MECHANIC, AND DID A STRESS TEST AND ECHO, ALL NEGATIVE PER PT. EXAMINATION GENERAL EXAMINATION: GENERALAWAKE,ALERT ,PLEAASANT . PSYCHAFFECT NORMAL . LUNGS:LUNG PRESCOTT ARE CLEAR TO AUSCULTATION BILATERALLY. GOOD MOVEMENT OF AIR . HEART:S1, S2 IN A REGULAR RATE AND RHYTHM. NO SIGNIFICANT MURMURS, RUBS OR GALLOPS NOTED . ASSESSMENTS LUMBAR DISC DISEASE WITH RADICULOPATHY - M51.16 (PRIMARY) POST LAMINECTOMY SYNDROME - M96.1 TREATMENT LUMBAR DISC DISEASE WITH RADICULOPATHY CONTINUE NARCAN LIQUID, 4 MG/0.1ML, DIRECTED, NASALLY, USE DIRECTED PRN FOR RESP DISTRESS WITH OPIOID USE CONTINUE COLACE CAPSULE, 100 MG, 1 CAPSULE NEEDED, ORALLY, TWICE DAILY, NOTES: NOT LATELY REFILL FENTANYL PATCH 72 HOUR, 50 MCG/HR, 1 PATCH TO SKIN, TRANSDERMAL, EVERY 72 HRS MDD=1, 30 DAY(S), 10, REFILLS 0 REFILL OXYCODONE HCL TABLET, 15 MG, 1 TABLET NEEDED, ORALLY, EVERY 6 HRS MDD 4, 30 DAY(S), 120, REFILLS 0 CONTINUE AMITRIPTYLINE HCL TABLET, 25 MG, DIRECTED, ORALLY, BEFORE BEDTIME CONTINUE METHOCARBAMOL TABLET, 750 MG, 1 TABLET, ORALLY, THREE TIMES DAILY NOTES: ISTOP REGISTRY REVIEWED AND DEMONSTRATES COMPLLIANCE. BRINGS IN MEDICATIONS WHICH IS APPROPRIATE FOR WHAT WAS DISPENSED. RECENT URINE TOXICOLOGY REVIEWED. NO UNAUTHORIZED MEDICATIONS. NO ILLICIT SUBSTANCES AND PRESCRIBED MEDICATIONS WERE PRESENT. URINE TOX TODAY, RISKS AND BENEFITS OF NARCOTIC/OPIOD MEDICATIONS WERE REVIEWED WITH PATIENT - THIS INCLUDES BUT IS NOT LIMITED TO RISK OF DEPENDANCE/DEVELOPMENT OF ADDICTION, MOOD DISTURBANCE AND DEPRESSION, OSTEOPOROSIS, HORMONAL AND LABIDAL CHANGES, RESPIRATORY DEPRESSION AND . PATIENT IS ADVISED NOT TO DRIVE OR DRINK ALCOHOL WHILE ON THESE MEDICATIONS. [facility] REASON:POST LAMINECTOMY SYNDROME WITH NEW ONSET RIGHT RADICULAR SYMPTOMS PROCEDURE CODES FA211 ESTABILISHED PATIENT [facility] FAC[facility] CHARGE DISPOSITION & COMMUNICATION FOLLOW UP 2 MONTHS (REASON: MED MGMNT/SOS REFERRAL) ELECTRONICALLY SIGNED BY DARLIN POSADA ON 11/22/2018 AT 08:58 AM EDT DISCLAIMER : THIS IS A VISIT SUMMARY EXTRACTED FROM THE [employer] CHART. IT IS NOT A COPY OF THE [employer] PROGRESS NOTE. KAVON
== END ==
LOC: M PAIN 09:15
PROVIDERS: ATTEND Nurse Practitioner Family
DX: M51.16 Intervertebral disc disorders with radiculopathy, lumbar region (principal); M96.1 Postlaminectomy syndrome, not elsewhere classified; E11.9 Type 2 diabetes mellitus without complications; Z86.59 Personal history of other mental and behavioral disorders; E78.5 Hyperlipidemia, unspecified; G43.909 Migraine, unspecified, not intractable, without status migrainosus; F17.210 Nicotine dependence, cigarettes, uncomplicated; Z88.0 Allergy status to penicillin; Z88.8 Allergy status to other drugs, medicaments and biological substances; Z79.4 Long term (current) use of insulin; Z79.899 Other long term (current) drug therapy

== ENCOUNTER → 2018-12-27 | Outpatient (CLI) | payer MEDICARE ==
[2018-12-27 17:13] LABS: HEMOGLOBIN A1c 9.7 %
[2018-12-27 17:26] LABS: BLOOD UREA NITROGEN 10 MG/DL (7-18); CARBON DIOXIDE LEVEL 30 MEQ/L (21-32); CHLORIDE LEVEL 104 MEQ/L (98-107); CREATININE FOR GFR 0.88 MG/DL (0.55-1.30); GLOMERULAR FILTRATION RATE > 60.0 (>60); GLUCOSE, FASTING 236 MG/DL (70-100); SODIUM LEVEL 140 MEQ/L (136-145)
== END ==
LOC: M WUC 14:46
PROVIDERS: ATTEND Family Medicine
DX: E11.65 Type 2 diabetes mellitus with hyperglycemia (principal); M54.5 Low back pain

== ENCOUNTER → 2018-12-27 | Outpatient (CLI) | payer MEDICARE ==
[2018-12-27 17:23] LABS: BLOOD UREA NITROGEN 10 MG/DL (7-18); CREATININE FOR GFR 0.89 MG/DL (0.55-1.30); GLOMERULAR FILTRATION RATE > 60.0 (>60)
== END ==
LOC: M WUC 14:43
PROVIDERS: ATTEND Orthopaedic Surgery Orthopaedic Surgery of the Spine
DX: M54.5 Low back pain (principal)

== ENCOUNTER → 2019-03-20 | Outpatient (CLI) | payer MEDICARE ==
[~2019-03-20] MED LIST changes: -LAMO100T; +LAMO100T3
--- NOTE | 2019-03-23 04:16 | ECWPNPC ---
PATIENT NAME: VASYL LEA : 1980 GENDER: FEMALE VISIT DATE: 03/20/2019 DISCHARGE DATE: 03/20/19 1008 VISIT LOCKED DATE TIME: PHYSICIAN: TOMEKA CABRERA RESOURCE: TOMEKA CABRERA REASON FOR APPOINTMENT 1. NECK/BACK HISTORY OF PRESENT ILLNESS HISTORY OF PRESENT ILLNESS: PAIN THE PATIENT DESCRIBES THE PAIN... 38-YEAR-OLD FEMALE IN FOR CHRONIC PAIN FOLLOW-UP. SHE RATES HER PAIN CURRENTLY AT A 7 OUT OF 10 AND DESCRIBES IT ACHING, BURNING, SORE, TENDER, SHARP, AND SHOOTING. SHE DOES ADMIT TO A UPCOMING SPINAL FUSION BUT FURTHER STATES THAT THE SURGERY IS ON HOLD UNTIL SHE GETS HER DIABETES UNDER BETTER MANAGEMENT. FALL RISK SCREENING: SCREENING :NO FALLS REPORTED IN THE LAST YEAR CURRENT MEDICATIONS TAKING GLUCOMETER 1 GLUCOMETER DX: E11.9 USE TO TEST FSBS TAKING SEROQUEL 200 MG TABLET 1 TABLET ORALLY TWICE A DAY TAKING ZOFRAN ODT 4 MG TABLET DISINTEGRATING DIRECTED ORALLY EVERY 4 HOURS NEEDED FOR NAUSEA, NOTES: NOT LATELY TAKING LATUDA 60 MG TABLET 1 TABLET ORALLY BEFORE BEDTIME TAKING BD ULTRA-FINE PEN NEEDLES 4 MM NANNO PEN NEEDLE USE DIRECTED WITH LANTUS PEN TAKING ONE TOUCH ULTRA TEST STRIPS DX 250.00 STRIPS DIRECTED - TWICE A DAY TAKING TRAZODONE HCL 50 MG TABLET 1 TABLET AT BEDTIME NEEDED ORALLY ONCE A DAY TAKING DIFLUCAN 150 MG TAB TAKE ONE TABLET BY MOUTH ONCE NEEDED FOR YEAST INFECTION ORALLY ONCE A DAY TAKING CRESTOR 40 MG TABLET 1 TABLET ORALLY ONCE A DAY TAKING SEROQUEL 50 MG TABLET 1 TABLET AT BEDTIME ORALLY ONCE A DAY TAKING LEVOCETIRIZINE DIHYDROCHLORIDE 5 MG TABLET 1 TABLET IN THE EVENING ORALLY ONCE A DAY TAKING CONTINUOUS GLUCOSE MONITOR - KIT PLEASE DISPENSE MONITOR AND SUPPLIES DX: E11.65 TAKING GABAPENTIN 800 MG TABLET 1 CAPSULE ORALLY THREE TIMES A DAY TAKING NARCAN 4 MG/0.1ML LIQUID DIRECTED NASALLY USE DIRECTED PRN FOR RESP DISTRESS WITH OPIOID USE TAKING COLACE 100 MG CAPSULE 1 CAPSULE NEEDED ORALLY TWICE DAILY TAKING ONE TOUCH ULTRA TEST STRIPS _ STRIPS DX: E11.65 CHECK BLOOD SUGARS BEFORE BREAKFAST AND DINNER TAKING LANCETS - MISCELLANEOUS 1 LANCET DX: E11.65 TWICE DAILY TAKING PEN NEEDLES 31G X 8 MM MISCELLANEOUS DIRECTED SUBCUTANEOUSLY DAILY WITH VICTOZA PEN. DX: Z79.4 TAKING AMITRIPTYLINE HCL 25 MG TABLET DIRECTED ORALLY BEFORE BEDTIME TAKING METHOCARBAMOL 750 MG TABLET 1 TABLET ORALLY THREE TIMES DAILY TAKING JARDIANCE 25 MG TABLET 1 TABLET ORALLY ONCE A DAY TAKING BYDUREON BCISE 2 MG INJECTION SUSPENSION EXTENDED RELEASE DIRECTED SUBCUTANEOUS WEEKLY TAKING GLIMEPIRIDE 2 MG TABLET TAKE ONE TABLET BY MOUTH EVERY DAY WITH BREAKFAST OR FIRST MAIN MEAL ORALLY ONCE A DAY TAKING ADMELOG SOLOSTAR 100 UNIT/ML SOLUTION PEN-INJECTOR 3-12 UNITS SUBCUTANEOUS BEFORE MEALS AND AT BEDTIME PER SLIDING SCALE. MDD 40 UNITS TAKING LANTUS SOLOSTAR 100 UNIT/ML SOLUTION PEN-INJECTOR 80 UNITS SUBCUTANEOUS BEFORE BEDTIME TAKING BD ULTRA-FINE PEN NEEDLES 32G 4MM _ DIRECTED DX: E11.9 WITH LANTUS PEN TAKING OXYCODONE HCL 15 MG TABLET 1 TABLET NEEDED ORALLY EVERY 6 HRS MDD 4 TAKING FENTANYL 50 MCG/HR PATCH 72 HOUR 1 PATCH TO SKIN TRANSDERMAL EVERY 72 HRS MDD=1 TAKING MONTELUKAST SODIUM 10 MG TABLET 1 TABLET ORALLY ONCE A DAY TAKING REQUIP 0.5 MG TABLET 3 TABS ORALLY ONCE A DAY BEFORE BEDTIME NOT-TAKING CHANTIX STARTING MONTH MADISYN 0.5 MG X 11 & 1 MG X 42 TABLET DIRECTED ORALLY DIRECTED ON PACKAGING, NOTES: HAS NOT STARTED NOT-TAKING FLUCONAZOLE 150 MG TABLET 1 TABLET ORALLY ONCE DAILY NOT-TAKING BYDUREON BCISE 2 MG/0.85ML AUTO-INJECTOR INJECT UNDER THE SKIN WEEKLY NOT-TAKING LISINOPRIL 2.5 MG TABLET 1 TABLET ORALLY ONCE A DAY NOT-TAKING FLUTICASONE PROPIONATE 50 MCG/ACT SUSPENSION 1 SPRAY IN EACH NOSTRIL NASALLY ONCE A DAY NOT-TAKING CYCLOBENZAPRINE HCL 10 MG TABLET 1 TABLET NEEDED ORALLY THREE TIMES A DAY NOT-TAKING DIFLUCAN 150 MG TABLET 1 TABLET ORALLY ONCE NEEDED FOR YEAST INFECTION NOT-TAKING LAMICTAL 25 MG TABLET 3 TABLET ORALLY ONCE A DAY, NOTES: HAD A RASH MEDICATION LIST REVIEWED AND RECONCILED WITH THE PATIENT PAST MEDICAL HISTORY DM2 DEPRESSION/ANXIETY/BIPOLAR 2 HYPERLIPIDEMIA CHRONIC BACK PAIN, FOLLOWS WITH PAINCLINIC, [facility] RECURRENT NEPHROLITHIASIS - URO MIGRAINES - 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 MORBID OBESITY NICOTINE DEP EKG 02/16 LAE, INCOMP RBBB CORDELIA 02/16 FEV1 2.65 FE DEF ANEMIA URETERAL STONE MIGRAINES RENAL LITHIASIS IRON DEFICIENCY ANEMIA VITAMIN D DEFICIENCY HEART MURMUR ALLERGIES PENICILLIN (FOR ALLERGIES USE ONLY): RASH - ALLERGY ENVIRONMENTAL: NASAL CONGESTION - ALLERGY LAMICTAL: RASH - ALLERGY SURGICAL HISTORY CHOLECYSTECTOMY 2002 C SECTION 2 BACK SURGERY 12/2009 TUBAL LIGATION 2011 L ESWL - CARRIE 04/06/13 KIDNEY STONE 09/2014 UTERINE D&C, ABLATION 06/2018 FAMILY HISTORY FATHER: , OF PANCREATIC CA MOTHER: ALIVE, T2DM, HLD, CAD, CAROTID STENOSIS, RENAL DISEASE SIBLINGS: ALIVE, NO KNOWN MEDICAL PROBLEMS PATERNAL GRAND FATHER: , UNKNOWN PATERNAL GRAND MOTHER: , UNKNOWN MATERNAL GRAND FATHER: , OF 32 OF [place] MATERNAL GRAND MOTHER: , OF STROKE IN 50S 6 BROTHER(S) , 5 SISTER(S) . 1 SON(S) , 5 DAUGHTER(S) - HEALTHY. FATHER OF PANCREATIC CANCER,. SOCIAL HISTORY GENERAL: TOBACCO USE ARE YOU A:CURRENT SMOKER ARE YOU INTERESTED IN QUITTING?NOT READY TO QUIT COUNSELED THE PATIENT ON SMOKING EFFECTS, EDUCATION [id number]/16/2019 HOW MANY CIGARETTES A DAY DO YOU SMOKE?11-20 HOW SOON AFTER YOU WAKE UP DO YOU SMOKE YOUR FIRST CIGARETTE?WITHIN 5 MIN HOW OFTEN DO YOU SMOKE CIGARETTES?EVERY DAY PATIENT COUNSELED ON THE DANGERS OF TOBACCO USE AND URGED TO QUIT:02/22/2019 HIV / HEP-C SCREENING HIV TEST OFFERED TO PATIENT:YES DATE OFFERED:05/27/2016 TEST ACCEPTED:NO HEP-C TEST OFFERED TO PATIENT:YES N/A DATE OFFERED:10/09/2016 REASON:PATIENT DECLINED TEST ACCEPTED:NO REASON:PATIENT DECLINED EDUCATION LEVEL OF EDUCATION:[employer] 8TH GRADE DIET: NO CONCENTRATED SWEETS.. LANGUAGE LANGUAGES SPOKEN:CHADIAN DOMESTIC VIOLENCE DO YOU FEEL SAFE IN YOUR ENVIRONMENT?YES NEW PATIENT PAIN DIARY TODAY'S VISIT NOTES, FROM 0-10, WHAT LEVEL IS YOUR PAIN TODAY? 0. BMI CARE GOAL FOLLOW-UP ABOVE NORMAL BMI FOLLOW-UPDIETARY MANAGEMENT EDUCATION, GUIDANCE, AND COUNSELING RECREATIONAL DRUG USE DRUG USE?NO EXERCISE: WALKS, DAILY. LEARNING BARRIERS / SPECIAL NEEDS CHANGE FROM LAST VISIT?NO BARRIERS TO LEARNING?YES COMMENTS READING HEARING IMPAIRED?NO VISION IMPAIRED?YES COGNITIVELY IMPAIRED?NO :CORRECTIVE LENSES READINESS TO LEARN?YES LEARNING PREFERENCES?YES :TAPES/VIDEOS, BOOKLETS, HANDOUTS, CLASSES, DEMONSTRATION/VERBAL INSTRUCTION, OTHER (PLEASE COMMENT) LEARNING CAPABILITIES PRESENT?YES EMOTIONAL BARRIERS?NO SPECIAL DEVICES?NO QUALITY IMPROVEMENT COORDINATOR NEEDED?NO PAIN CLINIC PFS, CLERGY, PUBLIC HEALTH REFERRALS PFS REFERRAL NEEDED?NO CLERGY REFERRAL NEEDED?NO PUBLIC HEALTH REFERRAL NEEDED?NO WAS THE PROVIDER NOTIFIED OF ANY PERTINENT INFO?YES HAS THE PATIENT BEEN EDUCATED REGARDING HIS/HER PLAN OF CARE?YES HAS THE PATIENT BEEN EDUCATED REGARDING PAIN, THE RISK FOR PAIN, THE IMPORTANCE OF EFFECTIVE PAIN MANAGEMENT, AND THE PAIN ASSESSMENT PROCESS?YES LATEX QUESTIONNAIRE LATEX ALLERGY : HAVE YOU EVER DEVELOPED ANY TYPE OF REACTION AFTER HANDLING LATEX PRODUCTS SUCH RUBBER GLOVES, CONDOMS, DIAPHRAGMS, BALLOONS, SOCKS, OR UNDERWEAR?NO LATEX ALLERGY : HAVE YOU EVER DEVELOPED ANY TYPE OF REACTION DURING OR AFTER DENTAL APPOINTMENT, VAGINAL/RECTAL EXAMINATION, SURGICAL PROCEDURE, OR ANY OTHER EXPOSURE?NO DATE ASKED : 06/23/2018 LATEX RISK : HAVE YOU EVER HAD ANY DIFFICULTY BREATHING OR HIVES AFTER EATING OR HANDLING ANY FRUITS, OR VEGETABLES; SUCH KIWI, BANANAS, STONE FRUITS, OR CHESTNUTSNO LATEX RISK : DO YOU HAVE A PREVIOUS PERSONAL HISTORY OF MORE THAN NINE SURGERIES, SPINA BIFIDA, OR REPEATED CATHERIZATIONS? NO LATEX RISK : ARE YOU FREQUENTLY EXPOSED TO LATEX PRODUCTS IN YOUR OCCUPATION?NO CAFFEINE CAFFEINE USE?YES HOW OFTEN AND HOW MUCH? 2 CUPS PER DAY ADVANCE DIRECTIVE ADVANCE DIRECTIVE DISCUSSED WITH PATIENT:YES PT HAS HCP, ARIANNA LEA [phone], AND DAUGHTER BK LEA [phone] ZOROASTRIANISM [id number] ORTHODOXY MARITAL STATUS: . ALCOHOL SCREENING DID YOU HAVE A DRINK CONTAINING ALCOHOL IN THE PAST YEAR?NO POINTS0 INTERPRETATIONNEGATIVE OCCUPATION: DISABLED. SEXUAL HX HAD SEX IN THE LAST 12 MONTHS (VAGINAL, ORAL, OR ANAL)?NO LMP:07/20/16 HAVE YOU EVER HAD AN STD?NO REVIEWED WITH PATIENT 01/14/18 0920 JSREVIEWED WITH PATIENT 05/03/18 1514 JSREVIEWED WITH PATIENT 11/07/18 0940 LAS. HOSPITALIZATION/MAJOR DIAGNOSTIC PROCEDURE SURGERY RELATED REVIEW OF SYSTEMS REVIEWED BY: PROVIDER: ERIN WHITE . CONSTITUTIONAL: ANY CHANGE IN YOUR MEDICAL CONDITION? NO . CHILLS NO . FEVER NO . INFECTION: DO YOU HAVE NEW INFECTIONS? NO . DO YOU HAVE HISTORY OF MRSA? NO . MUSCULOSKELETAL: ANY NEW PATTERNS OF PAIN OR NUMBNESS? NO . GASTROENTEROLOGY: ANY NEW CHANGE IN BOWEL CONTROL? NO . GENITOURINARY: ANY NEW CHANGE IN BLADDER CONTROL? NO . IS THERE A CHANCE YOU COULD BE ? NO . HEMATOLOGY/LYMPH: DO YOU TAKE ANY BLOOD THINNERS? (FOR EXAMPLE- COUMADIN, PLAVIX, AGGRENOX, PLATEL, PRADAXA, OR XARELTO) NO . WHEN WAS YOUR LAST DOSE? DATE: TIME: . NEUROLOGY: HAVE YOU FALLEN IN THE PAST 12 MONTHS? YES, PRIOR TO LAST VISIT . ANY NEW EXTREMITY NUMBNESS OR WEAKNESS? NO . CARDIOLOGY: DO YOU HAVE A PACEMAKER OR DEFIBRILLATOR? NO . RESPIRATORY: HAVE YOU BEEN SICK IN THE PAST WEEK? NO . FEVER NO . FLU LIKE SYMPTOMS? NO . COUGH NO . INTEGUMENTARY: DO YOU HAVE ANY RASHES OR OPEN SORES? NO . ALLERGIC/IMMUNO: ARE YOU ALLERGIC TO IV DYE? NO . ANY NEW ALLERGIES? NO . PSYCHIATRIC: DO YOU HAVE THOUGHTS OF HURTING YOURSELF OR SOMEONE ELSE? NO . ARE YOU ABUSED, NEGLECTED, OR IN AN UNSAFE ENVIRONMENT? NO . ENDOCRINOLOGY: ARE YOU DIABETIC? YES . OTHER: DO YOU NEED ANY PRESCRIPTIONS? NO . IF YES, PLEASE LIST: ____ . ANY NEW PROBLEMS WITH YOUR MEDICATIONS? NO . WHEN DID YOU LAST EAT? ____ . WHEN DID YOU LAST DRINK? ____ . WHAT DID YOU LAST DRINK? ____ . NAME OF PERSON DRIVING YOU HOME? ____ . DO YOU HAVE ANY OTHER QUESTIONS OR CONCERNS NO . VITAL SIGNS WT 227.4 LBS, HT 66 IN, BMI 36.70 INDEX, BP 122/75 MM HG, HR 110 /MIN, RR 16 /MIN, TEMP 96.9 F, OXYGEN SAT % 97, REVIEWED BY: EM. EXAMINATION GENERAL EXAMINATION: GENERALNO ACUTE DISTRESS, WELL NOURISHED AND HYDRATED. PSYCHAPPROPRIATE MOOD AND AFFECT . LUNGS:CLEAR TO AUSCULTATION BILATERALLY, NO WHEEZES, RHONCHI, RALES. HEART:NO MURMURS, REGULAR RATE AND RHYTHM. ASSESSMENTS LUMBAR DISC DISEASE WITH RADICULOPATHY - M51.16 (PRIMARY) TREATMENT LUMBAR DISC DISEASE WITH RADICULOPATHY CLINICAL NOTES: 38-YEAR-OLD FEMALE IN FOR CHRONIC PAIN FOLLOW-UP. GIVEN PRESENTING SYMPTOMS AND RESULTS OF PHYSICAL EXAMINATION RECOMMENDED CONTINUATION OF CURRENT MEDICATION REGIMEN WITH FOLLOW-UP IN 3 MONTHS. PATIENT EXPRESSED UNDERSTANDING OF AND WAS IN AGREEMENT WITH TREATMENT PLAN. GIVEN TIME TO ASK QUESTIONS AND EXPRESS CONCERNS., ISTOP REGISTRY REVIEWED AND DEMONSTRATES COMPLLIANCE. (REF #[id number] ) BRINGS IN MEDICATIONS WHICH IS APPROPRIATE FOR WHAT WAS DISPENSED. RECENT URINE TOXICOLOGY REVIEWED. NO UNAUTHORIZED MEDICATIONS. NO ILLICIT SUBSTANCES AND PRESCRIBED MEDICATIONS WERE PRESENT. PROCEDURE CODES [id number] ESTABILISHED PATIENT [facility] CHARGE DISPOSITION & COMMUNICATION FOLLOW UP 3 MONTHS (REASON: BACK PAIN) ELECTRONICALLY SIGNED BY DARLIN AGUILERA ON 03/22/2019 AT 01:03 PM EST DISCLAIMER : THIS IS A VISIT SUMMARY EXTRACTED FROM THE [employer] CHART. IT IS NOT A COPY OF THE [employer] PROGRESS NOTE. KAVON
== END ==
LOC: M PAIN 09:15
PROVIDERS: ATTEND Family Medicine
DX: M51.16 Intervertebral disc disorders with radiculopathy, lumbar region (principal); G89.29 Other chronic pain; E11.9 Type 2 diabetes mellitus without complications; Z86.59 Personal history of other mental and behavioral disorders; E78.5 Hyperlipidemia, unspecified; G43.909 Migraine, unspecified, not intractable, without status migrainosus; F17.210 Nicotine dependence, cigarettes, uncomplicated; Z88.0 Allergy status to penicillin; Z88.8 Allergy status to other drugs, medicaments and biological substances; Z79.4 Long term (current) use of insulin; Z79.891 Long term (current) use of opiate analgesic; Z79.899 Other long term (current) drug therapy

== ENCOUNTER 2019-05-04 14:09 | Emergency (ER) | payer MEDICARE ==
[~2019-05-04] VITALS: Ht 167.6 cm; Wt 100.7 kg
[2019-05-04] MEDS: PERCOCET 5MG/325MG TAB PO ONE (17:57)
[2019-05-04 18:05] VITALS: BP 128/80
== END 2019-05-04 18:07 | disposition home or self-care (01) ==
LOC: M ED 14:09
DX: M54.42 Lumbago with sciatica, left side (principal); M54.16 Radiculopathy, lumbar region; G89.29 Other chronic pain; E11.9 Type 2 diabetes mellitus without complications; Z79.4 Long term (current) use of insulin; Z79.899 Other long term (current) drug therapy; Z87.442 Personal history of urinary calculi; Z88.0 Allergy status to penicillin; Z88.8 Allergy status to other drugs, medicaments and biological substances

== ENCOUNTER → 2019-06-19 | Outpatient (CLI) | payer MEDICARE ==
--- NOTE | 2019-06-21 04:24 | ECWPNPC ---
PATIENT NAME: VASYL LEA : 1980 GENDER: FEMALE VISIT DATE: 06/19/2019 DISCHARGE DATE: 06/19/19 0000 VISIT LOCKED DATE TIME: PHYSICIAN: TOMEKA CABRERA RESOURCE: TOMEKA CABRERA REASON FOR APPOINTMENT 1. BACK PAIN HISTORY OF PRESENT ILLNESS HISTORY OF PRESENT ILLNESS: PAIN THE PATIENT DESCRIBES THE PAINDURING THE LAST MONTH SEVERITY - PAIN SCORE OF7/10 LOCATIONSLOWER BACK QUALITYACHING , BURNING, STABBING, TENDER, SHOOTING DURATIONCONTINUOUS, AWAKENS FROM SLEEEP 38-YEAR-OLD FEMALE IN FOR CHRONIC PAIN FOLLOW-UP. SHE RATES HER PAIN CURRENTLY AT A 7 OUT OF 10 AND DESCRIBES IT ACHING, BURNING, STABBING, SORE, SHOOTING, AND TENDER. SHE FEELS HER MEDICATIONS ARE WORKING WELL AND DENIES MED SIDE EFFECTS AT THIS TIME. SHE DOES ADMIT TO AN UPCOMING VISIT WITH HER PRIMARY CARE PROVIDER IN THE [place]OPES THAT HER A1C IS COMING DOWN AND SHE WILL BE ABLE TO GET SPINAL SURGERY PERFORMED AT [facility] IN [place]. FALL RISK SCREENING: SCREENING :NO FALLS REPORTED IN THE LAST YEAR CURRENT MEDICATIONS TAKING CRESTOR 40 MG TABLET 1 TABLET ORALLY ONCE A DAY TAKING MONTELUKAST SODIUM 10 MG TABLET 1 TABLET ORALLY ONCE A DAY TAKING BYDUREON BCISE 2 MG/0.85ML AUTO-INJECTOR INJECT UNDER THE SKIN WEEKLY TAKING AMITRIPTYLINE HCL 25 MG TABLET DIRECTED ORALLY BEFORE BEDTIME TAKING JARDIANCE 25 MG TABLET 1 TABLET ORALLY ONCE A DAY TAKING GABAPENTIN 800 MG TABLET 1 CAPSULE ORALLY THREE TIMES A DAY TAKING METHOCARBAMOL 750 MG TABLET 1 TABLET ORALLY THREE TIMES DAILY TAKING REQUIP 0.5 MG TABLET 3 TABS ORALLY ONCE A DAY BEFORE BEDTIME TAKING GLIMEPIRIDE 2 MG TABLET TAKE ONE TABLET BY MOUTH EVERY DAY WITH BREAKFAST OR FIRST MAIN MEAL ORALLY ONCE A DAY TAKING FENTANYL 50 MCG/HR PATCH 72 HOUR 1 PATCH TO SKIN TRANSDERMAL EVERY 72 HRS MDD=1 TAKING OXYCODONE HCL 15 MG TABLET 1 TABLET NEEDED ORALLY EVERY 6 HRS MDD 4 TAKING DIFLUCAN 150 MG TAB 1 TABLET ORALLY ONCE A DAY TAKING NOVOLOG FLEXPEN 100 UNIT/ML SOLUTION PEN-INJECTOR DIRECTED SUBCUTANEOUS TAKING TRULICITY 1.5 MG/0.5ML SOLUTION PEN-INJECTOR DIRECTED SUBCUTANEOUS , NOTES: NOT SURE OF DOSAGE TAKING LANTUS SOLOSTAR 100 UNIT/ML SOLUTION PEN-INJECTOR 80 UNITS SUBCUTANEOUS BEFORE BEDTIME NOT-TAKING PERMETHRIN 5 % CREAM 1 APPLICATION; LEAVE ON FOR 8-14 HOURS THEN WASH OFF EXTERNALLY FROM NECK TO SOLES OF FEET ONCE NOT-TAKING GLUCOMETER 1 GLUCOMETER DX: E11.9 USE TO TEST FSBS NOT-TAKING SEROQUEL 200 MG TABLET 1 TABLET ORALLY TWICE A DAY NOT-TAKING ZOFRAN ODT 4 MG TABLET DISINTEGRATING DIRECTED ORALLY EVERY 4 HOURS NEEDED FOR NAUSEA, NOTES: NOT LATELY NOT-TAKING LATUDA 60 MG TABLET 1 TABLET ORALLY BEFORE BEDTIME NOT-TAKING BD ULTRA-FINE PEN NEEDLES 4 MM NANNO PEN NEEDLE USE DIRECTED WITH LANTUS PEN NOT-TAKING ONE TOUCH ULTRA TEST STRIPS DX 250.00 STRIPS DIRECTED - TWICE A DAY NOT-TAKING TRAZODONE HCL 50 MG TABLET 1 TABLET AT BEDTIME NEEDED ORALLY ONCE A DAY NOT-TAKING SEROQUEL 50 MG TABLET 1 TABLET AT BEDTIME ORALLY ONCE A DAY NOT-TAKING LEVOCETIRIZINE DIHYDROCHLORIDE 5 MG TABLET 1 TABLET IN THE EVENING ORALLY ONCE A DAY NOT-TAKING CONTINUOUS GLUCOSE MONITOR - KIT PLEASE DISPENSE MONITOR AND SUPPLIES DX: E11.65 NOT-TAKING NARCAN 4 MG/0.1ML LIQUID DIRECTED NASALLY USE DIRECTED PRN FOR RESP DISTRESS WITH OPIOID USE NOT-TAKING COLACE 100 MG CAPSULE 1 CAPSULE NEEDED ORALLY TWICE DAILY NOT-TAKING ONE TOUCH ULTRA TEST STRIPS _ STRIPS DX: E11.65 CHECK BLOOD SUGARS BEFORE BREAKFAST AND DINNER NOT-TAKING LANCETS - MISCELLANEOUS 1 LANCET DX: E11.65 TWICE DAILY NOT-TAKING PEN NEEDLES 31G X 8 MM MISCELLANEOUS DIRECTED SUBCUTANEOUSLY DAILY WITH VICTOZA PEN. DX: Z79.4 NOT-TAKING BYDUREON BCISE 2 MG INJECTION SUSPENSION EXTENDED RELEASE DIRECTED SUBCUTANEOUS WEEKLY NOT-TAKING ADMELOG SOLOSTAR 100 UNIT/ML SOLUTION PEN-INJECTOR 3-12 UNITS SUBCUTANEOUS BEFORE MEALS AND AT BEDTIME PER SLIDING SCALE. MDD 40 UNITS NOT-TAKING BD ULTRA-FINE PEN NEEDLES 32G 4MM _ DIRECTED DX: E11.9 WITH LANTUS PEN NOT-TAKING CHANTIX STARTING MONTH MADISYN 0.5 MG X 11 & 1 MG X 42 TABLET DIRECTED ORALLY DIRECTED ON PACKAGING, NOTES: HAS NOT STARTED NOT-TAKING FLUCONAZOLE 150 MG TABLET 1 TABLET ORALLY ONCE DAILY NOT-TAKING LISINOPRIL 2.5 MG TABLET 1 TABLET ORALLY ONCE A DAY NOT-TAKING FLUTICASONE PROPIONATE 50 MCG/ACT SUSPENSION 1 SPRAY IN EACH NOSTRIL NASALLY ONCE A DAY NOT-TAKING CYCLOBENZAPRINE HCL 10 MG TABLET 1 TABLET NEEDED ORALLY THREE TIMES A DAY NOT-TAKING DIFLUCAN 150 MG TABLET 1 TABLET ORALLY ONCE NEEDED FOR YEAST INFECTION NOT-TAKING LAMICTAL 25 MG TABLET 3 TABLET ORALLY ONCE A DAY, NOTES: HAD A RASH MEDICATION LIST REVIEWED AND RECONCILED WITH THE PATIENT PAST MEDICAL HISTORY DM2 DEPRESSION/ANXIETY/BIPOLAR 2 HYPERLIPIDEMIA CHRONIC BACK PAIN, FOLLOWS WITH PAINCLINIC, [facility] RECURRENT NEPHROLITHIASIS - URO MIGRAINES - 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 MORBID OBESITY NICOTINE DEP EKG 02/16 LAE, INCOMP RBBB CORDELIA 02/16 FEV1 2.65 FE DEF ANEMIA URETERAL STONE MIGRAINES RENAL LITHIASIS IRON DEFICIENCY ANEMIA VITAMIN D DEFICIENCY HEART MURMUR ALLERGIES PENICILLIN (FOR ALLERGIES USE ONLY): RASH - ALLERGY ENVIRONMENTAL: NASAL CONGESTION - ALLERGY LAMICTAL: RASH - ALLERGY SURGICAL HISTORY CHOLECYSTECTOMY 2002 C SECTION 2 BACK SURGERY 12/2009 TUBAL LIGATION 2011 L ESWL - CARRIE 04/06/13 KIDNEY STONE 09/2014 UTERINE D&C, ABLATION 06/2018 FAMILY HISTORY FATHER: , OF PANCREATIC CA MOTHER: ALIVE, T2DM, HLD, CAD, CAROTID STENOSIS, RENAL DISEASE SIBLINGS: ALIVE, NO KNOWN MEDICAL PROBLEMS PATERNAL GRAND FATHER: , UNKNOWN PATERNAL GRAND MOTHER: , UNKNOWN MATERNAL GRAND FATHER: , OF 32 OF MD MATERNAL GRAND MOTHER: , OF STROKE IN 50S 6 BROTHER(S) , 5 SISTER(S) . 1 SON(S) , 5 DAUGHTER(S) - HEALTHY. FATHER OF PANCREATIC CANCER,. SOCIAL HISTORY GENERAL: TOBACCO USE ARE YOU A:CURRENT SMOKER ARE YOU INTERESTED IN QUITTING?NOT READY TO QUIT COUNSELED THE PATIENT ON SMOKING EFFECTS, EDUCATION [id number]/16/2020 HOW MANY CIGARETTES A DAY DO YOU SMOKE?11-20 HOW SOON AFTER YOU WAKE UP DO YOU SMOKE YOUR FIRST CIGARETTE?WITHIN 5 MIN HOW OFTEN DO YOU SMOKE CIGARETTES?EVERY DAY PATIENT COUNSELED ON THE DANGERS OF TOBACCO USE AND URGED TO QUIT:06/19/2019 SMOKING CESSATION INFORMATION GIVEN06/19/2019 HIV / HEP-C SCREENING HIV TEST OFFERED TO PATIENT:YES DATE OFFERED:05/27/2016 TEST ACCEPTED:NO HEP-C TEST OFFERED TO PATIENT:YES N/A DATE OFFERED:10/09/2016 REASON:PATIENT DECLINED TEST ACCEPTED:NO REASON:PATIENT DECLINED EDUCATION LEVEL OF EDUCATION:[employer] 8TH GRADE DIET: NO CONCENTRATED SWEETS.. LANGUAGE LANGUAGES SPOKEN:LATVIAN DOMESTIC VIOLENCE DO YOU FEEL SAFE IN YOUR ENVIRONMENT?YES NEW PATIENT PAIN DIARY TODAY'S VISIT NOTES, FROM 0-10, WHAT LEVEL IS YOUR PAIN TODAY? 0. BMI CARE GOAL FOLLOW-UP ABOVE NORMAL BMI FOLLOW-UPDIETARY MANAGEMENT EDUCATION, GUIDANCE, AND COUNSELING RECREATIONAL DRUG USE DRUG USE?NO EXERCISE: WALKS, DAILY. LEARNING BARRIERS / SPECIAL NEEDS CHANGE FROM LAST VISIT?NO BARRIERS TO LEARNING?YES COMMENTS READING HEARING IMPAIRED?NO VISION IMPAIRED?YES COGNITIVELY IMPAIRED?NO :CORRECTIVE LENSES READINESS TO LEARN?YES LEARNING PREFERENCES?YES :TAPES/VIDEOS, BOOKLETS, HANDOUTS, CLASSES, DEMONSTRATION/VERBAL INSTRUCTION, OTHER (PLEASE COMMENT) LEARNING CAPABILITIES PRESENT?YES EMOTIONAL BARRIERS?NO SPECIAL DEVICES?NO SPOT WORKER NEEDED?NO PAIN CLINIC PFS, CLERGY, PUBLIC HEALTH REFERRALS PFS REFERRAL NEEDED?NO CLERGY REFERRAL NEEDED?NO PUBLIC HEALTH REFERRAL NEEDED?NO WAS THE PROVIDER NOTIFIED OF ANY PERTINENT INFO?YES HAS THE PATIENT BEEN EDUCATED REGARDING HIS/HER PLAN OF CARE?YES HAS THE PATIENT BEEN EDUCATED REGARDING PAIN, THE RISK FOR PAIN, THE IMPORTANCE OF EFFECTIVE PAIN MANAGEMENT, AND THE PAIN ASSESSMENT PROCESS?YES LATEX QUESTIONNAIRE LATEX ALLERGY : HAVE YOU EVER DEVELOPED ANY TYPE OF REACTION AFTER HANDLING LATEX PRODUCTS SUCH RUBBER GLOVES, CONDOMS, DIAPHRAGMS, BALLOONS, SOCKS, OR UNDERWEAR?NO LATEX ALLERGY : HAVE YOU EVER DEVELOPED ANY TYPE OF REACTION DURING OR AFTER DENTAL APPOINTMENT, VAGINAL/RECTAL EXAMINATION, SURGICAL PROCEDURE, OR ANY OTHER EXPOSURE?NO DATE ASKED : 06/23/2018 LATEX RISK : HAVE YOU EVER HAD ANY DIFFICULTY BREATHING OR HIVES AFTER EATING OR HANDLING ANY FRUITS, OR VEGETABLES; SUCH KIWI, BANANAS, STONE FRUITS, OR CHESTNUTSNO LATEX RISK : DO YOU HAVE A PREVIOUS PERSONAL HISTORY OF MORE THAN NINE SURGERIES, SPINA BIFIDA, OR REPEATED CATHERIZATIONS? NO LATEX RISK : ARE YOU FREQUENTLY EXPOSED TO LATEX PRODUCTS IN YOUR OCCUPATION?NO CAFFEINE CAFFEINE USE?YES HOW OFTEN AND HOW MUCH? 2 CUPS PER DAY ADVANCE DIRECTIVE ADVANCE DIRECTIVE DISCUSSED WITH PATIENT:YES PT HAS HCP, ARIANNA LEA [phone], AND DAUGHTER BK LEA [phone] [id number] RESTORATION[employer] MARITAL STATUS: . ALCOHOL SCREENING DID YOU HAVE A DRINK CONTAINING ALCOHOL IN THE PAST YEAR?NO POINTS0 INTERPRETATIONNEGATIVE OCCUPATION: DISABLED. SEXUAL HX HAD SEX IN THE LAST 12 MONTHS (VAGINAL, ORAL, OR ANAL)?NO LMP:07/20/16 HAVE YOU EVER HAD AN STD?NO HOSPITALIZATION/MAJOR DIAGNOSTIC PROCEDURE SURGERY RELATED REVIEW OF SYSTEMS REVIEWED BY: PROVIDER: ERIN SAEED-Carlos . CONSTITUTIONAL: ANY CHANGE IN YOUR MEDICAL CONDITION? NO . CHILLS NO . FEVER NO . INFECTION: DO YOU HAVE NEW INFECTIONS? NO . DO YOU HAVE HISTORY OF MRSA? NO . MUSCULOSKELETAL: ANY NEW PATTERNS OF PAIN OR NUMBNESS? YES, PAIN AND NUMBNESS IN LOWER BACK THAT RADIATES THRU BOTH LEGS HAS GOTTEN WORSE . GASTROENTEROLOGY: ANY NEW CHANGE IN BOWEL CONTROL? NO . GENITOURINARY: ANY NEW CHANGE IN BLADDER CONTROL? NO . IS THERE A CHANCE YOU COULD BE ? NO . HEMATOLOGY/LYMPH: DO YOU TAKE ANY BLOOD THINNERS? (FOR EXAMPLE- COUMADIN, PLAVIX, AGGRENOX, PLATEL, PRADAXA, OR XARELTO) NO . WHEN WAS YOUR LAST DOSE? DATE: TIME: . NEUROLOGY: HAVE YOU FALLEN IN THE PAST 12 MONTHS? NO . ANY NEW EXTREMITY NUMBNESS OR WEAKNESS? NO . CARDIOLOGY: DO YOU HAVE A PACEMAKER OR DEFIBRILLATOR? NO . RESPIRATORY: HAVE YOU BEEN SICK IN THE PAST WEEK? NO . FEVER NO . FLU LIKE SYMPTOMS? NO . COUGH NO . INTEGUMENTARY: DO YOU HAVE ANY RASHES OR OPEN SORES? NO . ALLERGIC/IMMUNO: ARE YOU ALLERGIC TO IV DYE? NO . ANY NEW ALLERGIES? NO . PSYCHIATRIC: DO YOU HAVE THOUGHTS OF HURTING YOURSELF OR SOMEONE ELSE? NO . ARE YOU ABUSED, NEGLECTED, OR IN AN UNSAFE ENVIRONMENT? NO . ENDOCRINOLOGY: ARE YOU DIABETIC? YES . OTHER: DO YOU NEED ANY PRESCRIPTIONS? NO . IF YES, PLEASE LIST: ____ . ANY NEW PROBLEMS WITH YOUR MEDICATIONS? NO . WHEN DID YOU LAST EAT? ____ . WHEN DID YOU LAST DRINK? ____ . WHAT DID YOU LAST DRINK? ____ . NAME OF PERSON DRIVING YOU HOME? ____ . DO YOU HAVE ANY OTHER QUESTIONS OR CONCERNS NO . VITAL SIGNS WT 233.8 LBS, HT 66 IN, BMI 37.73 INDEX, BP 115/58 MM HG, HR 93 /MIN, RR 18 /MIN, TEMP 98.1 F, OXYGEN SAT % 97, SAFE IN ENV? (Y/N) YES, REVIEWED BY: JOHNNY COATS LPN. EXAMINATION GENERAL EXAMINATION: GENERALNO ACUTE DISTRESS, WELL NOURISHED AND HYDRATED. PSYCHAPPROPRIATE MOOD AND AFFECT . LUNGS:CLEAR TO AUSCULTATION BILATERALLY, NO WHEEZES, RHONCHI, RALES. HEART:NO MURMURS, REGULAR RATE AND RHYTHM. ASSESSMENTS USE OF OPIATES FOR THERAPEUTIC PURPOSES - Z79.891 (PRIMARY) LUMBAR DISC DISEASE WITH RADICULOPATHY - M51.16 TREATMENT USE OF OPIATES FOR THERAPEUTIC PURPOSES CLINICAL NOTES: 38-YEAR-OLD FEMALE IN FOR CHRONIC PAIN FOLLOW-UP. GIVEN PRESENTING SYMPTOMS AND RESULTS OF PHYSICAL EXAMINATION RECOMMENDED CONTINUATION OF CURRENT MEDICATION REGIMEN WITH FOLLOW-UP IN 3 MONTHS. U TOX TO BE COLLECTED TODAY. PATIENT HAS EXPRESSED UNDERSTANDING OF AND WAS IN AGREEMENT WITH TREATMENT PLAN. GIVEN TIME TO ASK QUESTIONS AND EXPRESS CONCERNS., ISTOP REGISTRY REVIEWED AND DEMONSTRATES COMPLLIANCE. (REF # [id number] ) BRINGS IN MEDICATIONS WHICH IS APPROPRIATE FOR WHAT WAS DISPENSED. RECENT URINE TOXICOLOGY REVIEWED. NO UNAUTHORIZED MEDICATIONS. NO ILLICIT SUBSTANCES AND PRESCRIBED MEDICATIONS WERE PRESENT. LUMBAR DISC DISEASE WITH RADICULOPATHY REFILL FENTANYL PATCH 72 HOUR, 50 MCG/HR, 1 PATCH TO SKIN, TRANSDERMAL, EVERY 72 HRS MDD=1, 30 DAYS, 10 REFILL OXYCODONE HCL TABLET, 15 MG, 1 TABLET NEEDED, ORALLY, EVERY 6 HRS MDD 4, 30 DAY(S), 120, REFILLS 0 PROCEDURE CODES FA211 ESTABILISHED PATIENT [facility] CHARGE DISPOSITION & COMMUNICATION FOLLOW UP 3 MONTHS (REASON: BACK PAIN) ELECTRONICALLY SIGNED BY DARLIN AGUILERA ON 06/20/2019 AT 09:16 AM EDT DISCLAIMER : THIS IS A VISIT SUMMARY EXTRACTED FROM THE [employer] CHART. IT IS NOT A COPY OF THE [employer] PROGRESS NOTE. ANGELICAD
== END ==
LOC: M PAIN 09:00
PROVIDERS: ATTEND Family Medicine
DX: M51.16 Intervertebral disc disorders with radiculopathy, lumbar region (principal); G89.29 Other chronic pain; E11.9 Type 2 diabetes mellitus without complications; Z86.59 Personal history of other mental and behavioral disorders; E78.5 Hyperlipidemia, unspecified; G43.909 Migraine, unspecified, not intractable, without status migrainosus; F17.210 Nicotine dependence, cigarettes, uncomplicated; Z88.0 Allergy status to penicillin; Z88.8 Allergy status to other drugs, medicaments and biological substances; Z79.4 Long term (current) use of insulin; Z79.891 Long term (current) use of opiate analgesic; Z79.899 Other long term (current) drug therapy

== ENCOUNTER → 2019-06-21 | Outpatient (REF) | payer MEDICARE ==
[~2019-06-21] MED LIST changes: +CYCL-707 PO; -CYCL10TA PO; +OXYC-1 PO; -OXYC15TA76 PO
[2019-06-21 11:00] LABS: BLOOD UREA NITROGEN 8 MG/DL (7-18); CALCIUM LEVEL 8.8 MG/DL (8.5-10.1); CARBON DIOXIDE LEVEL 30 MEQ/L (21-32); CHLORIDE LEVEL 109 MEQ/L (98-107); CREATININE FOR GFR 0.76 MG/DL (0.55-1.30); GLOMERULAR FILTRATION RATE > 60.0 (>60); GLUCOSE, FASTING 169 MG/DL (70-100); POTASSIUM SERUM 4.1 MEQ/L (3.5-5.1); SODIUM LEVEL 143 MEQ/L (136-145)
[2019-06-21 11:18] LABS: HEMOGLOBIN A1c 9.5 %
== END ==
LOC: M SFHCPLAZ 08:45
PROVIDERS: ATTEND Family Medicine
DX: E11.22 Type 2 diabetes mellitus with diabetic chronic kidney disease (principal); N18.3 Chronic kidney disease, stage 3 (moderate)
CPT/HCPCS: 36415; 80048; 83036; G0463

== ENCOUNTER → 2019-09-13 | Outpatient (CLI) | payer MEDICARE ==
--- NOTE | 2019-09-15 03:34 | ECWPNPC ---
PATIENT NAME: VASYL LEA : 1980 GENDER: FEMALE VISIT DATE: 09/13/2019 DISCHARGE DATE: 09/13/19 1328 VISIT LOCKED DATE TIME: PHYSICIAN: TOMEKA CABRERA RESOURCE: TOMEKA CABRERA REASON FOR APPOINTMENT 1. BACK; [phone] PAT COMPLETED HISTORY OF PRESENT ILLNESS GENERAL: - PERMISSION REQUESTED AND RECEIVED FROM PATIENT TO PERFORM TELEHEALTH VISIT. 39-YEAR-OLD FEMALE IN FOR CHRONIC PAIN FOLLOW-UP. SHE RATES HER PAIN CURRENTLY AT A 9 OUT OF 10 AND ADMITS TO INCREASED ACTIVITY IS THE REASON FOR HER INCREASED PAIN. SHE FEELS HER MEDICATIONS ARE HELPFUL AND DENIES MED SIDE EFFECTS AT THIS TIME. PAIN SCREENING: PATIENT HAS A COMPLAINT OF ACUTE OR CHRONIC PAIN :YES LOCATION OF PAIN:LOW BACK INTENSITY OF PAIN (SCALE OF 1 TO 10):9 WHAT DOES YOUR PAIN FEEL LIKE:ACHING, BURNING, SHOOTING DURATION:CONTINOUS, CONSTANT, ALL DAY, AWAKENS FROM SLEEP PAIN IS INCREASED BY:ACTIVITIES, PROLONGED STANDING PAIN IS DECREASED BY:USE OF PAIN MEDICATIONS HEATING PAD PAIN HAS INTERFERED WITH THE FOLLOWING:MOOD, HOUSEWORK, SLEEP, RELATIONSHIP WITH OTHERS, ENJOYMENT OF LIFE PLAN/GOALS/TREATMENT/INTERVENTION/FOLLOW UP:SEE PLAN FALL RISK SCREENING: SCREENING :NO FALLS REPORTED IN THE LAST YEAR DEPRESSION SCREENING: PHQ-2 (2015 EDITION) LITTLE INTEREST OR PLEASURE IN DOING THINGS?NOT AT ALL FEELING DOWN, DEPRESSED, OR HOPELESS?NOT AT ALL TOTAL SCORE0 NURSING NOTE: -. PAIN CENTER INTAKE QUESTIONS: DO YOU HAVE A HISTORY OF MRSA? :NO DO YOU TAKE A BLOOD THINNERS? :NO DO YOU HAVE ANY BLEEDING DISORDERS? :NO ANY NEW NUMBNESS OR WEAKNESS IN YOUR LEGS OR ARMS? :NO ANY PACEMAKER,DEFIBRILLATOR, OR DORSAL COLUMN STIMULATOR? :NO DO YOU HAVE ANY RASHES OR OPEN SORES? :NO ARE YOU ALLERGIC TO IV DYE? :NO ARE YOU DIABETIC? :YES ANY NEW PROBLEMS WITH YOUR MEDICATIONS? :NO HAVE YOU RECEIVED A VACCINE IN THE PAST 30 DAYS? :NO DO YOU PLAN TO RECEIVE A VACCINE IN THE NEXT 21 DAYS? :NO DO YOU NEED ANY PRESCRIPTION? :NO DO YOU TAKE ANY IMMUNOSUPPRESSIVE MEDICATIONS? :NO IS THERE A CHANCE YOU COULD BE ? :NO ARE YOU BREAST FEEDING? :NO CURRENT MEDICATIONS TAKING JARDIANCE 25 MG TABLET 1 TABLET ORALLY ONCE A DAY TAKING BD ULTRA-FINE PEN NEEDLES 32G 4MM _ DIRECTED DX: E11.9 WITH LANTUS PEN TAKING MONTELUKAST SODIUM 10 MG TABLET 1 TABLET ORALLY ONCE A DAY TAKING AMITRIPTYLINE HCL 25 MG TABLET DIRECTED ORALLY BEFORE BEDTIME TAKING GABAPENTIN 800 MG TABLET 1 CAPSULE ORALLY THREE TIMES A DAY TAKING DIFLUCAN 150 MG TAB 1 TABLET ORALLY ONCE A DAY NEEDED TAKING SEROQUEL 200 MG TABLET 1 TABLET ORALLY TWICE A DAY TAKING SEROQUEL 50 MG TABLET 1 TABLET AT BEDTIME ORALLY ONCE A DAY TAKING LATUDA 60 MG TABLET 1 TABLET ORALLY BEFORE BEDTIME TAKING GLIMEPIRIDE 2 MG TABLET TAKE ONE TABLET BY MOUTH EVERY DAY WITH BREAKFAST OR FIRST MAIN MEAL ORALLY ONCE A DAY TAKING BYDUREON BCISE 2 MG/0.85ML AUTO-INJECTOR INJECT UNDER THE SKIN WEEKLY TAKING LANTUS SOLOSTAR 100 UNIT/ML SOLUTION PEN-INJECTOR 80 UNITS SUBCUTANEOUS BEFORE BEDTIME TAKING HUMALOG KWIKPEN 100 UNIT/ML SOLUTION PEN-INJECTOR DIRECTED SUBCUTANEOUS PER SLIDING SCALE; MDD#30 TAKING LISINOPRIL 2.5 MG TABLET 1 TABLET ORALLY ONCE A DAY TAKING CRESTOR 40 MG TABLET 1 TABLET ORALLY ONCE A DAY TAKING METHOCARBAMOL 750 MG TABLET 1 TABLET ORALLY THREE TIMES DAILY TAKING REQUIP 0.5 MG TABLET 3 TABS ORALLY ONCE A DAY BEFORE BEDTIME TAKING FENTANYL 50 MCG/HR PATCH 72 HOUR 1 PATCH TO SKIN TRANSDERMAL EVERY 72 HRS MDD=1 TAKING OXYCODONE HCL 15 MG TABLET 1 TABLET NEEDED ORALLY EVERY 6 HRS MDD 4 NOT-TAKING DIFLUCAN 150 MG TABLET 1 TABLET ORALLY ONCE NEEDED FOR YEAST INFECTION, NOTES: DUPLICATE NOT-TAKING NARCAN 4 MG/0.1ML LIQUID DIRECTED NASALLY USE DIRECTED PRN FOR RESP DISTRESS WITH OPIOID USE MEDICATION LIST REVIEWED AND RECONCILED WITH THE PATIENT PAST MEDICAL HISTORY DM2 DEPRESSION/ANXIETY/BIPOLAR 2 HYPERLIPIDEMIA CHRONIC BACK PAIN, FOLLOWS WITH PAINCLINIC, [facility] RECURRENT NEPHROLITHIASIS - URO MIGRAINES - 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 MORBID OBESITY NICOTINE DEP EKG 02/16 LAE, INCOMP RBBB CORDELIA 02/16 FEV1 2.65 FE DEF ANEMIA URETERAL STONE MIGRAINES RENAL LITHIASIS IRON DEFICIENCY ANEMIA VITAMIN D DEFICIENCY HEART MURMUR ALLERGIES PENICILLIN (FOR ALLERGIES USE ONLY): RASH - ALLERGY ENVIRONMENTAL: NASAL CONGESTION - ALLERGY LAMICTAL: RASH - ALLERGY SURGICAL HISTORY CHOLECYSTECTOMY 2001 C SECTION 2 BACK SURGERY 12/2009 TUBAL LIGATION 2011 L ESWL - CARRIE 04/06/13 KIDNEY STONE 09/2014 UTERINE D&C, ABLATION 06/2018 FAMILY HISTORY FATHER: , OF PANCREATIC CA MOTHER: ALIVE, T2DM, HLD, CAD, CAROTID STENOSIS, RENAL DISEASE SIBLINGS: ALIVE, NO KNOWN MEDICAL PROBLEMS PATERNAL GRAND FATHER: , UNKNOWN PATERNAL GRAND MOTHER: , UNKNOWN MATERNAL GRAND FATHER: , OF 32 OF ID MATERNAL GRAND MOTHER: , OF STROKE IN 50S 6 BROTHER(S) , 5 SISTER(S) . 1 SON(S) , 5 DAUGHTER(S) - HEALTHY. FATHER OF PANCREATIC CANCER,. SOCIAL HISTORY GENERAL: TOBACCO USE ARE YOU A:CURRENT SMOKER ARE YOU INTERESTED IN QUITTING?NOT READY TO QUIT COUNSELED THE PATIENT ON SMOKING EFFECTS, EDUCATION [id number]/09/2020 HOW MANY CIGARETTES A DAY DO YOU SMOKE?11-20 HOW SOON AFTER YOU WAKE UP DO YOU SMOKE YOUR FIRST CIGARETTE?WITHIN 5 MIN HOW OFTEN DO YOU SMOKE CIGARETTES?EVERY DAY PATIENT COUNSELED ON THE DANGERS OF TOBACCO USE AND URGED TO QUIT:09/12/2019 SMOKING CESSATION INFORMATION GIVEN09/12/2019 LATEX QUESTIONNAIRE LATEX ALLERGY : HAVE YOU EVER DEVELOPED ANY TYPE OF REACTION AFTER HANDLING LATEX PRODUCTS SUCH RUBBER GLOVES, CONDOMS, DIAPHRAGMS, BALLOONS, SOCKS, OR UNDERWEAR?NO LATEX ALLERGY : HAVE YOU EVER DEVELOPED ANY TYPE OF REACTION DURING OR AFTER DENTAL APPOINTMENT, VAGINAL/RECTAL EXAMINATION, SURGICAL PROCEDURE, OR ANY OTHER EXPOSURE?NO LATEX RISK : HAVE YOU EVER HAD ANY DIFFICULTY BREATHING OR HIVES AFTER EATING OR HANDLING ANY FRUITS, OR VEGETABLES; SUCH KIWI, BANANAS, STONE FRUITS, OR CHESTNUTSNO LATEX RISK : DO YOU HAVE A PREVIOUS PERSONAL HISTORY OF MORE THAN NINE SURGERIES, SPINA BIFIDA, OR REPEATED CATHERIZATIONS? NO LATEX RISK : ARE YOU FREQUENTLY EXPOSED TO LATEX PRODUCTS IN YOUR OCCUPATION?NO DATE ASKED : 09/12/2019 BMI CARE GOAL FOLLOW-UP ABOVE NORMAL BMI FOLLOW-UPDIETARY MANAGEMENT EDUCATION, GUIDANCE, AND COUNSELING ALCOHOL SCREENING DID YOU HAVE A DRINK CONTAINING ALCOHOL IN THE PAST YEAR?NO POINTS0 INTERPRETATIONNEGATIVE RECREATIONAL DRUG USE DRUG USE?NO CAFFEINE CAFFEINE USE?YES HOW OFTEN AND HOW MUCH? 2 CUPS PER DAY SEXUAL HX HAD SEX IN THE LAST 12 MONTHS (VAGINAL, ORAL, OR ANAL)?NO LMP:07/20/16 HAVE YOU EVER HAD AN STD?NO HIV / HEP-C SCREENING HIV TEST OFFERED TO PATIENT:NO HEP-C TEST OFFERED TO PATIENT:NO DRUZE [id number] GNOSTICISM LANGUAGE LANGUAGES SPOKEN:ZIMBABWEAN EDUCATION LEVEL OF EDUCATION:[employer] 8TH GRADE LEARNING BARRIERS / SPECIAL NEEDS CHANGE FROM LAST VISIT?NO BARRIERS TO LEARNING?YES COMMENTS READING HEARING IMPAIRED?NO VISION IMPAIRED?YES COGNITIVELY IMPAIRED?NO :CORRECTIVE LENSES READINESS TO LEARN?YES LEARNING PREFERENCES?YES :TAPES/VIDEOS, BOOKLETS, HANDOUTS, CLASSES, DEMONSTRATION/VERBAL INSTRUCTION, OTHER (PLEASE COMMENT) LEARNING CAPABILITIES PRESENT?YES EMOTIONAL BARRIERS?NO SPECIAL DEVICES?NO FIRST FRONT VENTILATOR NEEDED?NO DOMESTIC VIOLENCE DO YOU FEEL SAFE IN YOUR ENVIRONMENT?YES OCCUPATION: DISABLED. DIET: NO CONCENTRATED SWEETS.. EXERCISE: WALKS, DAILY. MARITAL STATUS: . NEW PATIENT PAIN DIARY TODAY'S VISIT NOTES, FROM 0-10, WHAT LEVEL IS YOUR PAIN TODAY? 0. PAIN CLINIC PFS, CLERGY, PUBLIC HEALTH REFERRALS PFS REFERRAL NEEDED?NO CLERGY REFERRAL NEEDED?NO PUBLIC HEALTH REFERRAL NEEDED?NO WAS THE PROVIDER NOTIFIED OF ANY PERTINENT INFO?YES HAS THE PATIENT BEEN EDUCATED REGARDING HIS/HER PLAN OF CARE?YES HAS THE PATIENT BEEN EDUCATED REGARDING PAIN, THE RISK FOR PAIN, THE IMPORTANCE OF EFFECTIVE PAIN MANAGEMENT, AND THE PAIN ASSESSMENT PROCESS?YES ADVANCE DIRECTIVE ADVANCE DIRECTIVE DISCUSSED WITH PATIENT:YES PT HAS HCP, ARIANNA LEA [phone], AND DAUGHTER BK ELA [phone] HOSPITALIZATION/MAJOR DIAGNOSTIC PROCEDURE SURGERY RELATED REVIEW OF SYSTEMS CONSTITUTIONAL: ANY RECENT FEVER OR ILLNESS NO . CHILLS NO . GASTROENTEROLOGY: BOWEL INCONTINENCE NO . ANY NEW CHANGE IN BOWEL CONTROL? NO . ABDOMINAL PAIN NO . CONSTIPATION NO . GENITOURINARY: ANY NEW CHANGE IN BLADDER CONTROL? NO . URINARY INCONTINENCE NO . CARDIOLOGY: CHEST PRESSURE NO . CHEST PAIN NO . RESPIRATORY: COUGH NO . SHORTNESS OF BREATH NO . EXAMINATION GENERAL EXAMINATION: GENERALNO ACUTE DISTRESS, WELL NOURISHED AND HYDRATED. PSYCHAPPROPRIATE MOOD AND AFFECT , ORIENTED X 3. ASSESSMENTS LUMBAR DISC DISEASE WITH RADICULOPATHY - M51.16 (PRIMARY) TREATMENT LUMBAR DISC DISEASE WITH RADICULOPATHY CLINICAL NOTES: 39-YEAR-OLD FEMALE IN FOR CHRONIC PAIN FOLLOW-UP. GIVEN PRESENTING SYMPTOMS RECOMMENDED CONTINUATION OF CURRENT MEDICATION REGIMEN WITH FOLLOW-UP IN 3 MONTHS. PATIENT HAS EXPRESSED UNDERSTANDING OF AND WAS IN AGREEMENT WITH TREATMENT PLAN. GIVEN TIME TO ASK QUESTIONS AND EXPRESS CONCERNS. , ISTOP REGISTRY REVIEWED AND DEMONSTRATES COMPLLIANCE. (REF # [id number] ) BRINGS IN MEDICATIONS WHICH IS APPROPRIATE FOR WHAT WAS DISPENSED. RECENT URINE TOXICOLOGY REVIEWED. NO UNAUTHORIZED MEDICATIONS. NO ILLICIT SUBSTANCES AND PRESCRIBED MEDICATIONS WERE PRESENT. TELEHEALTH VISIT CONDUCTED VIA ZOOM. TIMES PATIENT 4 MINUTES. OTHERS NOTES: VITALS NOT OBTAINED DUE TO VIRTUAL VIST, PRE-SCREENING COMPLETED, 09/12/19, NA. DISPOSITION & COMMUNICATION FOLLOW UP 3 MONTHS (REASON: BACK PAIN) ELECTRONICALLY SIGNED BY DARLIN AGUILERA ON 09/14/2019 AT 08:42 AM EDT DISCLAIMER : THIS IS A VISIT SUMMARY EXTRACTED FROM THE [facility] CHART. IT IS NOT A COPY OF THE [facility] PROGRESS NOTE. KAVON
== END ==
LOC: M PAIN 13:15
PROVIDERS: ATTEND Family Medicine
DX: M51.16 Intervertebral disc disorders with radiculopathy, lumbar region (principal)

== ENCOUNTER → 2019-10-03 | Outpatient (CLI) | payer MEDICARE ==
--- NOTE | 2019-10-03 09:42 | REP ---
Clinical: Chronic cough . Comparison: 07/14/2018 . Technique: PA and lateral. Findings: The mediastinum and cardiac silhouette are normal. The lung prasad are clear and without acute consolidation, effusion, or pneumothorax. The skeletal structures are intact and normal. Impression: 1. No acute cardiopulmonary process. Electronically Signed by Jacob Sibley MD 10/03/2019 09:33 A
[2019-10-03 11:25] LABS: HEMOGLOBIN A1c 10.7 %
[2019-10-03 11:43] LABS: ALBUMIN 3.4 GM/DL (3.2-5.2); ALT/SGPT 39 U/L (12-78); BILIRUBIN,TOTAL 0.3 MG/DL (0.2-1.0); BLOOD UREA NITROGEN 13 MG/DL (7-18); CALCIUM LEVEL 9.6 MG/DL (8.5-10.1); CARBON DIOXIDE LEVEL 27 MEQ/L (21-32); CHLORIDE LEVEL 101 MEQ/L (98-107); CHOLESTEROL LEVEL 160 MG/DL (<200); CHOLESTEROL RISK RATIO 4.705 (<5); CREATININE FOR GFR 1.08 MG/DL (0.55-1.30); GLOMERULAR FILTRATION RATE > 60.0 (>60); GLUCOSE, FASTING 447 MG/DL (70-100); HDL CHOLESTEROL 34 MG/DL (>40); NON-HDL-C 126 MG/DL; POTASSIUM SERUM 4.7 MEQ/L (3.5-5.1); SODIUM LEVEL 135 MEQ/L (136-145); TOTAL PROTEIN 6.8 GM/DL (6.4-8.2); TRIGLYCERIDES LEVEL 450 MG/DL (<150)
[2019-10-03 11:58] LABS: CREATININE, URINE < 13.0 MG/DL; MALB URINE SIEMENS < 5.0 MG/L
== END ==
LOC: M WUC 08:36
PROVIDERS: ATTEND Family Medicine
DX: R05 Cough (principal); E11.65 Type 2 diabetes mellitus with hyperglycemia; E78.2 Mixed hyperlipidemia

== ENCOUNTER → 2020-01-03 | Outpatient (CLI) | payer MEDICARE ==
--- NOTE | 2020-01-04 10:03 | ECWPNPC ---
PATIENT NAME: VASYL LEA : 1980 GENDER: FEMALE VISIT DATE: 01/03/2020 DISCHARGE DATE: 01/03/20 09 VISIT LOCKED DATE TIME: PHYSICIAN: TOMEKA CABRERA PHYSICIAN PAGER NO: ACTIVE RESOURCE: TOMEKA CABRERA REASON FOR APPOINTMENT 1. BACK PAIN HISTORY OF PRESENT ILLNESS DEPRESSION SCREENING: PHQ-2 (2015 EDITION) LITTLE INTEREST OR PLEASURE IN DOING THINGS?NOT AT ALL FEELING DOWN, DEPRESSED, OR HOPELESS?NOT AT ALL TOTAL SCORE0 39 YEAR OLD FEMALE IN FOR CHRONIC PAIN FOLLOW UP. SHE RATES HER PAIN AT A 7/10 CURRENTLY AND DESCRIBES IT ACHING, BURNING, AND INTERMITTENT. SHE FEELS HER MEDICATIONS ARE WORKING WELL AND DENIES MED SIDE EFFECTS AT THIS TIME. GENERAL: - -. PAIN SCREENING: PATIENT HAS A COMPLAINT OF ACUTE OR CHRONIC PAIN :YES LOCATION OF PAIN:LOW BACK INTENSITY OF PAIN (SCALE OF 1 TO 10):7 WHAT DOES YOUR PAIN FEEL LIKE:ACHING, BURNING, INTERMITTENT, TENDER, THROBBING, SHOOTING DURATION:MAINLY DURING THE DAY PAIN IS INCREASED BY:ACTIVITIES PAIN IS DECREASED BY:OTHERS LAYING DOWN NURSING NOTE: - -. PAIN CENTER INTAKE QUESTIONS: DO YOU HAVE A HISTORY OF MRSA? :NO DO YOU TAKE A BLOOD THINNERS? :NO DO YOU HAVE ANY BLEEDING DISORDERS? :NO ANY NEW NUMBNESS OR WEAKNESS IN YOUR LEGS OR ARMS? :NO ANY PACEMAKER,DEFIBRILLATOR, OR DORSAL COLUMN STIMULATOR? :NO DO YOU HAVE ANY RASHES OR OPEN SORES? :NO ARE YOU ALLERGIC TO IV DYE? :NO ARE YOU DIABETIC? :YES TAKES INSULIN ANY NEW PROBLEMS WITH YOUR MEDICATIONS? :NO HAVE YOU RECEIVED A VACCINE IN THE PAST 30 DAYS? :NO DO YOU PLAN TO RECEIVE A VACCINE IN THE NEXT 21 DAYS? :YES PLANS TO GET THE FLU SHOT DO YOU NEED ANY PRESCRIPTION? :NO DO YOU TAKE ANY IMMUNOSUPPRESSIVE MEDICATIONS? :NO IS THERE A CHANCE YOU COULD BE ? :NO ARE YOU BREAST FEEDING? :NO FALL RISK SCREENING: SCREENING :ONE FALL WITHOUT INJURY IN THE PAST YEAR NO MEDICAL ATTENTION, NO INJURY CURRENT MEDICATIONS TAKING BD ULTRA-FINE PEN NEEDLES 32G 4MM _ DIRECTED DX: E11.9 WITH LANTUS PEN TAKING MONTELUKAST SODIUM 10 MG TABLET 1 TABLET ORALLY ONCE A DAY TAKING CETIRIZINE HCL 10 MG TABLET 1 TABLET ORALLY ONCE A DAY TAKING JARDIANCE 25 MG TABLET 1 TABLET ORALLY ONCE A DAY TAKING GABAPENTIN 800 MG TABLET 1 CAPSULE ORALLY THREE TIMES A DAY TAKING AMITRIPTYLINE HCL 25 MG TABLET DIRECTED ORALLY BEFORE BEDTIME TAKING SEROQUEL 200 MG TABLET 1 TABLET ORALLY TWICE A DAY TAKING LATUDA 60 MG TABLET 1 TABLET ORALLY BEFORE BEDTIME TAKING SEROQUEL 50 MG TABLET 1 TABLET AT BEDTIME ORALLY ONCE A DAY TAKING GLIMEPIRIDE 2 MG TABLET TAKE ONE TABLET BY MOUTH EVERY DAY WITH BREAKFAST OR FIRST MAIN MEAL ORALLY ONCE A DAY TAKING BYDUREON BCISE 2 MG/0.85ML AUTO-INJECTOR INJECT UNDER THE SKIN WEEKLY TAKING HUMALOG KWIKPEN 100 UNIT/ML SOLUTION PEN-INJECTOR DIRECTED SUBCUTANEOUS PER SLIDING SCALE; MDD#30 TAKING LISINOPRIL 2.5 MG TABLET 1 TABLET ORALLY ONCE A DAY TAKING CRESTOR 40 MG TABLET 1 TABLET ORALLY ONCE A DAY TAKING METHOCARBAMOL 750 MG TABLET 1 TABLET ORALLY THREE TIMES DAILY TAKING REQUIP 0.5 MG TABLET 3 TABS ORALLY ONCE A DAY BEFORE BEDTIME TAKING NYSTATIN [id number] UNIT/GM POWDER 1 APPLICATION EXTERNALLY TWICE A DAY TAKING DIFLUCAN 150 MG TAB 1 TABLET ORALLY ONCE A DAY NEEDED TAKING LANTUS SOLOSTAR 100 UNIT/ML SOLUTION PEN-INJECTOR 45 UNITS SUBCUTANEOUS BID TAKING OXYCODONE HCL 15 MG TABLET 1 TABLET NEEDED ORALLY EVERY 6 HRS MDD 4 TAKING FENTANYL 50 MCG/HR PATCH 72 HOUR 1 PATCH TO SKIN TRANSDERMAL EVERY 72 HRS MDD=1 TAKING NARCAN 4 MG/0.1ML LIQUID DIRECTED NASALLY USE DIRECTED PRN FOR RESP DISTRESS WITH OPIOID USE MEDICATION LIST REVIEWED AND RECONCILED WITH THE PATIENT PAST MEDICAL HISTORY DM2 DEPRESSION/ANXIETY/BIPOLAR 2 HYPERLIPIDEMIA CHRONIC BACK PAIN, FOLLOWS WITH PAINCLINIC, [facility] RECURRENT NEPHROLITHIASIS - URO MIGRAINES - 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 MORBID OBESITY NICOTINE DEP EKG 02/16 LAE, INCOMP RBBB CORDELIA 02/16 FEV1 2.65 FE DEF ANEMIA URETERAL STONE MIGRAINES RENAL LITHIASIS IRON DEFICIENCY ANEMIA VITAMIN D DEFICIENCY HEART MURMUR ALLERGIES PENICILLIN (FOR ALLERGIES USE ONLY): RASH - ALLERGY ENVIRONMENTAL: NASAL CONGESTION - ALLERGY LAMICTAL: RASH - ALLERGY SURGICAL HISTORY CHOLECYSTECTOMY 2001 C SECTION 2 BACK SURGERY 12/2009 TUBAL LIGATION 2012 L ESWL - CARRIE 04/06/13 KIDNEY STONE 09/2014 UTERINE D&C, ABLATION 06/2018 FAMILY HISTORY FATHER: , OF PANCREATIC CA MOTHER: ALIVE, T2DM, HLD, CAD, CAROTID STENOSIS, RENAL DISEASE SIBLINGS: ALIVE, NO KNOWN MEDICAL PROBLEMS PATERNAL GRAND FATHER: , UNKNOWN PATERNAL GRAND MOTHER: , UNKNOWN MATERNAL GRAND FATHER: , OF 32 OF [place] MATERNAL GRAND MOTHER: , OF STROKE IN 50S 6 BROTHER(S) , 5 SISTER(S) . 1 SON(S) , 5 DAUGHTER(S) - HEALTHY. FATHER OF PANCREATIC CANCER, SISTER JUST 1 WEEK AGO 09/28/2019. SOCIAL HISTORY GENERAL: TOBACCO USE ARE YOU A:CURRENT SMOKER ARE YOU INTERESTED IN QUITTING?NOT READY TO QUIT COUNSELED THE PATIENT ON SMOKING EFFECTS, EDUCATION FCSIBINH60/25/2020 HOW MANY CIGARETTES A DAY DO YOU SMOKE?11-20 HOW SOON AFTER YOU WAKE UP DO YOU SMOKE YOUR FIRST CIGARETTE?WITHIN 5 MIN HOW OFTEN DO YOU SMOKE CIGARETTES?EVERY DAY PATIENT COUNSELED ON THE DANGERS OF TOBACCO USE AND URGED TO QUIT:01/03/2020 SMOKING CESSATION INFORMATION GIVEN09/28/2019 LATEX QUESTIONNAIRE LATEX ALLERGY : HAVE YOU EVER DEVELOPED ANY TYPE OF REACTION AFTER HANDLING LATEX PRODUCTS SUCH RUBBER GLOVES, CONDOMS, DIAPHRAGMS, BALLOONS, SOCKS, OR UNDERWEAR?NO LATEX ALLERGY : HAVE YOU EVER DEVELOPED ANY TYPE OF REACTION DURING OR AFTER DENTAL APPOINTMENT, VAGINAL/RECTAL EXAMINATION, SURGICAL PROCEDURE, OR ANY OTHER EXPOSURE?NO LATEX RISK : HAVE YOU EVER HAD ANY DIFFICULTY BREATHING OR HIVES AFTER EATING OR HANDLING ANY FRUITS, OR VEGETABLES; SUCH KIWI, BANANAS, STONE FRUITS, OR CHESTNUTSNO LATEX RISK : DO YOU HAVE A PREVIOUS PERSONAL HISTORY OF MORE THAN NINE SURGERIES, SPINA BIFIDA, OR REPEATED CATHERIZATIONS? NO LATEX RISK : ARE YOU FREQUENTLY EXPOSED TO LATEX PRODUCTS IN YOUR OCCUPATION?NO DATE ASKED : 01/03/2020 BMI CARE GOAL FOLLOW-UP ABOVE NORMAL BMI FOLLOW-UPDIETARY MANAGEMENT EDUCATION, GUIDANCE, AND COUNSELING ALCOHOL SCREENING DID YOU HAVE A DRINK CONTAINING ALCOHOL IN THE PAST YEAR?NO POINTS0 INTERPRETATIONNEGATIVE RECREATIONAL DRUG USE DRUG USE?NO CAFFEINE CAFFEINE USE?YES HOW OFTEN AND HOW MUCH? 2 CUPS PER DAY SEXUAL HX HAD SEX IN THE LAST 12 MONTHS (VAGINAL, ORAL, OR ANAL)?NO LMP:07/20/16 HAVE YOU EVER HAD AN STD?NO HIV / HEP-C SCREENING HIV TEST OFFERED TO PATIENT:NO HEP-C TEST OFFERED TO PATIENT:NO SYNAGOGUE [id number] SABIANISM LANGUAGE LANGUAGES SPOKEN:ST HELENIAN EDUCATION LEVEL OF EDUCATION:[employer] 8TH GRADE LEARNING BARRIERS / SPECIAL NEEDS CHANGE FROM LAST VISIT?NO BARRIERS TO LEARNING?YES COMMENTS READING HEARING IMPAIRED?NO VISION IMPAIRED?YES :CORRECTIVE LENSES COGNITIVELY IMPAIRED?NO READINESS TO LEARN?YES LEARNING PREFERENCES?YES :TAPES/VIDEOS, BOOKLETS, HANDOUTS, CLASSES, DEMONSTRATION/VERBAL INSTRUCTION, OTHER (PLEASE COMMENT) LEARNING CAPABILITIES PRESENT?YES EMOTIONAL BARRIERS?NO SPECIAL DEVICES?NO BIODIESEL PRODUCTION TECHNICIAN NEEDED?NO DOMESTIC VIOLENCE DO YOU FEEL SAFE IN YOUR ENVIRONMENT?YES OCCUPATION: DISABLED. DIET: NO CONCENTRATED SWEETS.. EXERCISE: WALKS, DAILY. MARITAL STATUS: . PAIN CLINIC PFS, CLERGY, PUBLIC HEALTH REFERRALS PFS REFERRAL NEEDED?NO CLERGY REFERRAL NEEDED?NO PUBLIC HEALTH REFERRAL NEEDED?NO WAS THE PROVIDER NOTIFIED OF ANY PERTINENT INFO?YES HAS THE PATIENT BEEN EDUCATED REGARDING HIS/HER PLAN OF CARE?YES HAS THE PATIENT BEEN EDUCATED REGARDING PAIN, THE RISK FOR PAIN, THE IMPORTANCE OF EFFECTIVE PAIN MANAGEMENT, AND THE PAIN ASSESSMENT PROCESS?YES ADVANCE DIRECTIVE ADVANCE DIRECTIVE DISCUSSED WITH PATIENT:YES PT HAS HCP, ARIANNA LEA [phone], AND DAUGHTER BK LEA [phone] HOSPITALIZATION/MAJOR DIAGNOSTIC PROCEDURE SURGERY RELATED REVIEW OF SYSTEMS CONSTITUTIONAL: ANY RECENT FEVER NO . CHILLS NO . GASTROENTEROLOGY: BOWEL INCONTINENCE NO . ANY NEW CHANGE IN BOWEL CONTROL? NO . HISTORY OF UNUSUAL ABDOMINAL PAIN OR CRAMPING NOT MENTIONED NO . CONSTIPATION NO . GENITOURINARY: ANY NEW CHANGE IN BLADDER CONTROL? NO . URINARY INCONTINENCE NO . CARDIOLOGY: NEW CHEST PRESSURE NO . HISTORY OF CHEST PAIN,IRREGULAR HEART BEAT NOT MENTIONED NO . RESPIRATORY: COUGH NO . SHORTNESS OF BREATH NO . VITAL SIGNS WT 229.2 LBS, HT 66 IN, BMI 36.99 INDEX, BP 133/76 MM HG, HR 125 /MIN, RR 18 /MIN, TEMP 98.5 F, OXYGEN SAT % 97%, NA INITIALS SC 09:11, REVIEWED BY: DM. EXAMINATION GENERAL EXAMINATION: GENERALNO ACUTE DISTRESS, WELL NOURISHED AND HYDRATED. PSYCHAPPROPRIATE MOOD AND AFFECT . LUNGS:CLEAR TO AUSCULTATION BILATERALLY, NO WHEEZES, RHONCHI, RALES. HEART:NO MURMURS, REGULAR RATE AND RHYTHM. ASSESSMENTS SPONDYLOSIS OF CERVICAL REGION WITHOUT MYELOPATHY OR RADICULOPATHY - M47.812 (PRIMARY) CHRONIC PRESCRIPTION OPIATE USE - Z79.899 CHRONIC PAIN SYNDROME - G89.4 TREATMENT SPONDYLOSIS OF CERVICAL REGION WITHOUT MYELOPATHY OR RADICULOPATHY CLINICAL NOTES: 39 YEAR OLD FEMALE IN FOR CHORNIC PAIN FOLLOW UP. GIVEN PRESENTING SYMPTOMS RECOMMEND CONTINUAITON OF CURRENT MEDICATIONS WITH FOLLOW UP IN 3 MONTHS. PATIENT HAS EXPRESSED UNDERSTANDING OF AND WAS IN AGREEMENT WITH TREATMENT PLAN. GIVEN TIME TO ASK QUESTIONS AND EXPRESS CONCERNS , ISTOP REGISTRY REVIEWED AND DEMONSTRATES COMPLLIANCE. (REF #[id number] ) BRINGS IN MEDICATIONS WHICH IS APPROPRIATE FOR WHAT WAS DISPENSED. RECENT URINE TOXICOLOGY REVIEWED. NO UNAUTHORIZED MEDICATIONS. NO ILLICIT SUBSTANCES AND PRESCRIBED MEDICATIONS WERE PRESENT. CHRONIC PAIN SYNDROME REFILL FENTANYL PATCH 72 HOUR, 50 MCG/HR, 1 PATCH TO SKIN, TRANSDERMAL, EVERY 72 HRS MDD=1, 30 DAYS, 10 PREVENTIVE MEDICINE PAIN CLINIC TEACHING: THE PATIENT HAS BEEN EDUCATED REGARDING HIS/HER PLAN OF CARE . THE PATIENT HAS BEEN EDUCATED REGARDING PAIN, THE RISK FOR PAIN, THE IMPORTANCE OF EFFECTIVE PAIN MANAGEMENT, AND THE PAIN ASSESSMENT PROCESS. : REVIEWED PLAN OF CARE WITH PT. PT ACKNOWLEDGES UNDERSTADING. PROCEDURE CODES FA211 ESTABILISHED PATIENT [facility] CHARGE DISPOSITION & COMMUNICATION FOLLOW UP 3 MONTHS (REASON: NECK PAIN ) ELECTRONICALLY SIGNED BY DARLIN AGUILERA ON 01/04/2020 AT 10:01 AM EDT DISCLAIMER : THIS IS A VISIT SUMMARY EXTRACTED FROM THE [employer] CHART. IT IS NOT A COPY OF THE [employer] PROGRESS NOTE. KAVON
== END ==
LOC: M PAIN 09:00
PROVIDERS: ATTEND Family Medicine
DX: M47.812 Spondylosis without myelopathy or radiculopathy, cervical region (principal); G89.29 Other chronic pain; E11.9 Type 2 diabetes mellitus without complications; E78.5 Hyperlipidemia, unspecified; G43.909 Migraine, unspecified, not intractable, without status migrainosus; F17.210 Nicotine dependence, cigarettes, uncomplicated; Z86.59 Personal history of other mental and behavioral disorders; Z88.0 Allergy status to penicillin; Z88.8 Allergy status to other drugs, medicaments and biological substances; Z79.4 Long term (current) use of insulin; Z79.891 Long term (current) use of opiate analgesic; Z79.899 Other long term (current) drug therapy

== ENCOUNTER → 2020-06-05 | Outpatient (CLI) | payer MEDICARE ==
[~2020-06-05] MED LIST changes: +GLYB2.5T7 PO; -GLYB25TA PO; +METH-1165; -METH750T2
--- NOTE | 2020-06-11 05:42 | ECWPNPC ---
PATIENT NAME: VASYL LEA : 1980 GENDER: FEMALE VISIT DATE: 06/05/2020 DISCHARGE DATE: 06/05/20 1133 VISIT LOCKED DATE TIME: PHYSICIAN: TOMEKA CABRERA PHYSICIAN PAGER NO: ACTIVE RESOURCE: TOMEKA CABRERA REASON FOR APPOINTMENT 1. NECK HISTORY OF PRESENT ILLNESS GENERAL: - 39-YEAR-OLD FEMALE IN FOR CHRONIC PAIN FOLLOW-UP. SHE RATES HER PAIN CURRENTLY AT A 7 OUT OF 10 AND DESCRIBES IT ACHING, BURNING, INTERMITTENT, AND THROBBING. SHE FEELS HER MEDICATIONS ARE HELPFUL AND DENIES MED SIDE EFFECTS AT THIS TIME. FALL RISK SCREENING: SCREENING : TWO OR MORE FALLS WITHOUT INJURY IN THE PAST YEAR. PAIN SCREENING: PATIENT HAS A COMPLAINT OF ACUTE OR CHRONIC PAIN :YES LOCATION OF PAIN:NECK, UPPER BACK, MID BACK, LOW BACK, LEG(S) INTENSITY OF PAIN (SCALE OF 1 TO 10):7 WHAT DOES YOUR PAIN FEEL LIKE:ACHING, BURNING, INTERMITTENT, THROBBING DURATION:INTERMITTENT, AWAKENS FROM SLEEP PAIN IS INCREASED BY:ACTIVITIES, PROLONGED STANDING PAIN IS DECREASED BY:USE OF PAIN MEDICATIONS, OTHERS LAYING DOWN, STRETCHING NURSING NOTE: -. PAIN CENTER INTAKE QUESTIONS: DO YOU HAVE A HISTORY OF MRSA? :NO DO YOU TAKE A BLOOD THINNERS? :NO DO YOU HAVE ANY BLEEDING DISORDERS? :NO ANY NEW NUMBNESS OR WEAKNESS IN YOUR LEGS OR ARMS? :NO ANY PACEMAKER,DEFIBRILLATOR, OR DORSAL COLUMN STIMULATOR? :NO DO YOU HAVE ANY RASHES OR OPEN SORES? :NO ARE YOU ALLERGIC TO IV DYE? :NO ARE YOU DIABETIC? :YES TYPE II ANY NEW PROBLEMS WITH YOUR MEDICATIONS? :NO HAVE YOU RECEIVED A VACCINE IN THE PAST 30 DAYS? :NO DO YOU PLAN TO RECEIVE A VACCINE IN THE NEXT 21 DAYS? :NO DO YOU NEED ANY PRESCRIPTION? :YES FENTANYL, OXYCODONE AND REPINEROLE DO YOU TAKE ANY IMMUNOSUPPRESSIVE MEDICATIONS? :NO DO YOU HAVE ANY KIDNEY OR LIVER DISEASE? :NO HISTORY OF KIDNEY STONES IS THERE A CHANCE YOU COULD BE ? :NO ARE YOU BREAST FEEDING? :NO CURRENT MEDICATIONS TAKING BD ULTRA-FINE PEN NEEDLES 32G 4MM _ DIRECTED DX: E11.9 WITH LANTUS PEN TAKING AMITRIPTYLINE HCL 25 MG TABLET DIRECTED ORALLY BEFORE BEDTIME TAKING SEROQUEL 300 MG TABLET 1 TABLET AT BEDTIME ORALLY ONCE A DAY TAKING LATUDA 80 MG TABLET 1 TABLET ORALLY BEFORE BEDTIME TAKING SEROQUEL 50 MG TABLET 1 TABLET AT BEDTIME ORALLY ONCE A DAY TAKING NYSTATIN [id number] UNIT/GM POWDER 1 APPLICATION EXTERNALLY TWICE A DAY TAKING NARCAN 4 MG/0.1ML LIQUID DIRECTED NASALLY USE DIRECTED PRN FOR RESP DISTRESS WITH OPIOID USE TAKING ONETOUCH VERIO - STRIP DIRECTED IN VITRO FOUR TIMES DAILY TAKING CRESTOR 40 MG TABLET 1 TABLET ORALLY ONCE A DAY TAKING GLIMEPIRIDE 2 MG TABLET TAKE ONE TABLET BY MOUTH EVERY DAY WITH BREAKFAST OR FIRST MAIN MEAL ORALLY ONCE A DAY TAKING BYDUREON BCISE 2 MG/0.85ML AUTO-INJECTOR INJECT UNDER THE SKIN WEEKLY SUBCUTANEOUS TAKING LANTUS SOLOSTAR 100 UNIT/ML SOLUTION PEN-INJECTOR 45 UNITS SUBCUTANEOUS BID TAKING HUMALOG KWIKPEN 100 UNIT/ML SOLUTION PEN-INJECTOR DIRECTED SUBCUTANEOUS PER SLIDING SCALE; MDD __#42 TAKING MONTELUKAST SODIUM 10 MG TABLET 1 TABLET ORALLY ONCE A DAY TAKING LISINOPRIL 2.5 MG TABLET 1 TABLET ORALLY ONCE A DAY TAKING REQUIP 0.5 MG TABLET 3 TABS ORALLY ONCE A DAY BEFORE BEDTIME TAKING JARDIANCE 25 MG TABLET 1 TABLET ORALLY ONCE A DAY TAKING FENTANYL 50 MCG/HR PATCH 72 HOUR 1 PATCH TO SKIN TRANSDERMAL EVERY 72 HRS MDD=1 TAKING OXYCODONE HCL 15 MG TABLET 1 TABLET NEEDED ORALLY EVERY 6 HRS MDD 4 TAKING DIFLUCAN 150 MG TAB 1 TABLET ORALLY ONCE A DAY NEEDED TAKING GABAPENTIN 800 MG TABLET 1 CAPSULE ORALLY THREE TIMES A DAY TAKING METHOCARBAMOL 750 MG TABLET 1 TABLET ORALLY THREE TIMES DAILY TAKING SEROQUEL 100 MG TABLET 1 CAP ORALLY ONCE A DAY IN MORNING NOT-TAKING CETIRIZINE HCL 10 MG TABLET 1 TABLET ORALLY ONCE A DAY MEDICATION LIST REVIEWED AND RECONCILED WITH THE PATIENT PAST MEDICAL HISTORY DM2 DEPRESSION/ANXIETY/BIPOLAR 2 HYPERLIPIDEMIA CHRONIC BACK PAIN, FOLLOWS WITH PAINCLINIC, [facility] RECURRENT NEPHROLITHIASIS - URO MIGRAINES - 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 MORBID OBESITY NICOTINE DEP EKG 02/16 LAE, INCOMP RBBB CORDELIA 02/16 FEV1 2.65 FE DEF ANEMIA URETERAL STONE MIGRAINES RENAL LITHIASIS IRON DEFICIENCY ANEMIA VITAMIN D DEFICIENCY HEART MURMUR ALLERGIES PENICILLIN (FOR ALLERGIES USE ONLY): RASH - ALLERGY ENVIRONMENTAL: NASAL CONGESTION - ALLERGY LAMICTAL: RASH - ALLERGY METFORMIN HCL: KIDNEY FAILURE - SIDE EFFECTS SOCIAL HISTORY GENERAL: TOBACCO USE ARE YOU A:CURRENT SMOKER HOW OFTEN DO YOU SMOKE CIGARETTES?EVERY DAY HOW SOON AFTER YOU WAKE UP DO YOU SMOKE YOUR FIRST CIGARETTE?WITHIN 5 MIN HOW MANY CIGARETTES A DAY DO YOU SMOKE?11-20 ARE YOU INTERESTED IN QUITTING?NOT READY TO QUIT PATIENT COUNSELED ON THE DANGERS OF TOBACCO USE AND URGED TO QUIT:01/03/2020 COUNSELED THE PATIENT ON SMOKING EFFECTS, EDUCATION PTNUMRPP55/25/2020 SMOKING CESSATION INFORMATION GIVEN09/28/2019 LATEX QUESTIONNAIRE LATEX ALLERGY : HAVE YOU EVER DEVELOPED ANY TYPE OF REACTION AFTER HANDLING LATEX PRODUCTS SUCH RUBBER GLOVES, CONDOMS, DIAPHRAGMS, BALLOONS, SOCKS, OR UNDERWEAR?NO LATEX ALLERGY : HAVE YOU EVER DEVELOPED ANY TYPE OF REACTION DURING OR AFTER DENTAL APPOINTMENT, VAGINAL/RECTAL EXAMINATION, SURGICAL PROCEDURE, OR ANY OTHER EXPOSURE?NO LATEX RISK : HAVE YOU EVER HAD ANY DIFFICULTY BREATHING OR HIVES AFTER EATING OR HANDLING ANY FRUITS, OR VEGETABLES; SUCH KIWI, BANANAS, STONE FRUITS, OR CHESTNUTSNO LATEX RISK : DO YOU HAVE A PREVIOUS PERSONAL HISTORY OF MORE THAN NINE SURGERIES, SPINA BIFIDA, OR REPEATED CATHERIZATIONS? NO LATEX RISK : ARE YOU FREQUENTLY EXPOSED TO LATEX PRODUCTS IN YOUR OCCUPATION?NO DATE ASKED : 06/05/2020 ALCOHOL USE: NO. BMI CARE GOAL FOLLOW-UP ABOVE NORMAL BMI FOLLOW-UPDIETARY MANAGEMENT EDUCATION, GUIDANCE, AND COUNSELING ALCOHOL SCREENING DID YOU HAVE A DRINK CONTAINING ALCOHOL IN THE PAST YEAR?NO POINTS0 INTERPRETATIONNEGATIVE RECREATIONAL DRUG USE DRUG USE?NO CAFFEINE CAFFEINE USE?YES HOW OFTEN AND HOW MUCH? 2 CUPS PER DAY SEXUAL HX HAD SEX IN THE LAST 12 MONTHS (VAGINAL, ORAL, OR ANAL)?NO LMP:07/20/16 HAVE YOU EVER HAD AN STD?NO HIV / HEP-C SCREENING HIV TEST OFFERED TO PATIENT:NO HEP-C TEST OFFERED TO PATIENT:NO SAMARITAN [id number] DRUZE LANGUAGE LANGUAGES SPOKEN:SERBIAN EDUCATION LEVEL OF EDUCATION:[employer] 8TH GRADE LEARNING BARRIERS / SPECIAL NEEDS CHANGE FROM LAST VISIT?YES BARRIERS TO LEARNING?YES COMMENTS READING HEARING IMPAIRED?NO VISION IMPAIRED?YES :CORRECTIVE LENSES COGNITIVELY IMPAIRED?NO READINESS TO LEARN?YES LEARNING PREFERENCES?YES :TAPES/VIDEOS, BOOKLETS, HANDOUTS, CLASSES, DEMONSTRATION/VERBAL INSTRUCTION, OTHER (PLEASE COMMENT) LEARNING CAPABILITIES PRESENT?YES EMOTIONAL BARRIERS?NO SPECIAL DEVICES?YES :CANE BATTERY TEST ENGINEER NEEDED?NO DOMESTIC VIOLENCE DO YOU FEEL SAFE IN YOUR ENVIRONMENT?YES OCCUPATION: DISABLED. DIET: NO CONCENTRATED SWEETS.. EXERCISE: WALKS, DAILY. MARITAL STATUS: . - PFS REFERRAL NEEDED?NO CLERGY REFERRAL NEEDED?NO PUBLIC HEALTH REFERRAL NEEDED?NO WAS THE PROVIDER NOTIFIED OF ANY PERTINENT INFO?YES HAS THE PATIENT BEEN EDUCATED REGARDING HIS/HER PLAN OF CARE?YES HAS THE PATIENT BEEN EDUCATED REGARDING PAIN, THE RISK FOR PAIN, THE IMPORTANCE OF EFFECTIVE PAIN MANAGEMENT, AND THE PAIN ASSESSMENT PROCESS?YES ADVANCE DIRECTIVE ADVANCE DIRECTIVE DISCUSSED WITH PATIENT:YES PT HAS HCP, ARIANNA LEA [phone], AND DAUGHTER KB LEA [phone] REVIEW OF SYSTEMS CONSTITUTIONAL: ANY RECENT FEVER NO . CHILLS NO . WEIGHT CHANGE OF UNKNOWN REASONS NO . GASTROENTEROLOGY: NEW UNEXPLAINABLE CHANGES IN BOWEL CONTROL NO . CONSTIPATION NO . GENITOURINARY: ANY NEW CHANGE IN BLADDER CONTROL? NO . NEUROLOGY: NEW ONSET DIZZINESS OR NEUROLOGICAL CHANGES NOT MENTIONED NO . NEW NUMBNESS OR PAIN PATTERNS NOT MENTIONED AND PERTINENT TO TODAY'S VISIT NO . CARDIOLOGY: NEW CHEST PRESSURE NO . PATIENT DENIES NO . RESPIRATORY: UNEXPLAINABLE COUGH NO . NEW SHORTNESS OF BREATH NO . VITAL SIGNS WT 227.4 LBS, HT 66 IN, BMI 36.70 INDEX, BP 132/79 MM HG, HR 113 /MIN, RR 18 /MIN, TEMP 96.5 F, OXYGEN SAT % 95%, SAFE IN ENV? (Y/N) YES, NA INITIALS DC 10:38, REVIEWED BY: DELIA OH MA. EXAMINATION GENERAL EXAMINATION: GENERALNO ACUTE DISTRESS, WELL NOURISHED AND HYDRATED. PSYCHAPPROPRIATE MOOD AND AFFECT . LUNGS:CLEAR TO AUSCULTATION BILATERALLY, NO WHEEZES, RHONCHI, RALES. HEART:NO MURMURS, REGULAR RATE AND RHYTHM. ASSESSMENTS SPONDYLOSIS OF CERVICAL REGION WITHOUT MYELOPATHY OR RADICULOPATHY - M47.812 (PRIMARY) DIVORCE ATTORNEY (CURRENT) USE OF OPIATE ANALGESIC - Z79.891 TREATMENT SPONDYLOSIS OF CERVICAL REGION WITHOUT MYELOPATHY OR RADICULOPATHY LAB: URINE TEST GROUP JAJA OH 06/05/2020 11:30:34 AM > LAST DOSE: OXYCODONE 06/04/2020; FENTANYL 06/05/2020; GABAPENTIN 06/05/2020 NOTES: 39-YEAR-OLD FEMALE IN FOR CHRONIC PAIN FOLLOW-UP. GIVEN PRESENTING SYMPTOMS RECOMMENDED CONTINUATION OF CURRENT MEDICATION REGIMEN WITH FOLLOW-UP IN 3 MONTHS. PATIENT HAS EXPRESSED UNDERSTANDING OF AND WAS IN AGREEMENT WITH TREATMENT PLAN. GIVEN TIME TO ASK QUESTIONS AND EXPRESS CONCERNS. , ISTOP REGISTRY REVIEWED AND DEMONSTRATES COMPLLIANCE. (REF # [id number] ) BRINGS IN MEDICATIONS WHICH IS APPROPRIATE FOR WHAT WAS DISPENSED. RECENT URINE TOXICOLOGY REVIEWED. NO UNAUTHORIZED MEDICATIONS. NO ILLICIT SUBSTANCES AND PRESCRIBED MEDICATIONS WERE PRESENT. OTHERS REFILL REQUIP TABLET, 0.5 MG, 3 TABS, ORALLY, ONCE A DAY BEFORE BEDTIME, 30 DAY(S), 90, REFILLS 1 CONTINUE FENTANYL PATCH 72 HOUR, 50 MCG/HR, 1 PATCH TO SKIN, TRANSDERMAL, EVERY 72 HRS MDD=1, 15 DAYS, 5, REFILLS 0 REFILL OXYCODONE HCL TABLET, 15 MG, 1 TABLET NEEDED, ORALLY, EVERY 6 HRS MDD 4, 30 DAY(S), 108, REFILLS 0 PROCEDURE CODES FA211 ESTABILISHED PATIENT [facility] CHARGE DISPOSITION & COMMUNICATION FOLLOW UP 3 MONTHS (REASON: NECK PAIN) ELECTRONICALLY SIGNED BY DARLIN AGUILERA ON 06/10/2020 AT 07:45 AM EST DISCLAIMER : THIS IS A VISIT SUMMARY EXTRACTED FROM THE [employer] CHART. IT IS NOT A COPY OF THE [employer] PROGRESS NOTE. KAVON
== END ==
LOC: M PAIN 10:30
PROVIDERS: ATTEND Family Medicine
DX: M47.812 Spondylosis without myelopathy or radiculopathy, cervical region (principal); E11.9 Type 2 diabetes mellitus without complications; F32.9 Major depressive disorder, single episode, unspecified; F41.9 Anxiety disorder, unspecified; G43.909 Migraine, unspecified, not intractable, without status migrainosus; E66.01 Morbid (severe) obesity due to excess calories; Z68.36 Body mass index [BMI] 36.0-36.9, adult; J30.9 Allergic rhinitis, unspecified; F17.210 Nicotine dependence, cigarettes, uncomplicated; D50.9 Iron deficiency anemia, unspecified; E55.9 Vitamin D deficiency, unspecified; Z79.4 Long term (current) use of insulin; Z79.891 Long term (current) use of opiate analgesic; Z79.899 Other long term (current) drug therapy; Z88.0 Allergy status to penicillin; Z88.8 Allergy status to other drugs, medicaments and biological substances

== ENCOUNTER → 2020-09-06 | Outpatient (CLI) | payer MEDICARE ==
--- NOTE | 2020-09-10 07:34 | ECWPNPC ---
PATIENT NAME: VASYL LEA : 1980 GENDER: FEMALE VISIT DATE: 09/06/2020 DISCHARGE DATE: 09/06/20 1011 VISIT LOCKED DATE TIME: PHYSICIAN: TOMEKA CABRERA PHYSICIAN PAGER NO: ACTIVE RESOURCE: TOMEKA CABRERA REASON FOR APPOINTMENT 1. NECK PAIN HISTORY OF PRESENT ILLNESS DEPRESSION SCREENING: PHQ-9 LITTLE INTEREST OR PLEASURE IN DOING THINGSNEARLY EVERY DAY FEELING DOWN, DEPRESSED, OR HOPELESSSEVERAL DAYS TROUBLE FALLING OR STAYING ASLEEP, OR SLEEPING TOO MUCHNEARLY EVERY DAY FEELING TIRED OR HAVING LITTLE ENERGYSEVERAL DAYS POOR APPETITE OR OVEREATING SEVERAL DAYS FEELING BAD ABOUT YOURSELF-OR THAT YOU ARE A FAILURE OR HAVE LET YOURSELF OR YOUR FAMILY DOWN SEVERAL DAYS TROUBLE CONCENTRATING ON THINGS, SUCH READING THE NEWSPAPER OR WATCHING TELEVISION NOT AT ALL MOVING OR SPEAKING SO SLOWLY THAT OTHER PEOPLE COULD HAVE NOTICED. OR THE OPPOSITE- BEING SO FIDGETY OR RESTLESS THAT YOU HAVE BEEN MOVING AROUND A LOT MORE THAN USUALNOT AT ALL THOUGHTS THAT YOU WOULD BE BETTER OFF , OR OF HURTING YOURSELF IN SOME WAY?NOT AT ALL TOTAL SCORE:10 INTERPRETATIONMODERATE DEPRESSION PHQ-2 (2015 EDITION) LITTLE INTEREST OR PLEASURE IN DOING THINGS?NEARLY EVERY DAY FEELING DOWN, DEPRESSED, OR HOPELESS?SEVERAL DAYS TOTAL SCORE4 GENERAL: HPI 40-YEAR-OLD FEMALE IN FOR CHRONIC PAIN FOLLOW-UP. SHE RATES HER PAIN CURRENTLY AT A 5 OUT OF 10 BUT STATES IT CAN GET UP HIGH A 9 OUT OF 10. SHE DESCRIBES HER PAIN ACHING. SHE FEELS HER MEDICATIONS ARE HELPFUL AND DENIES MED SIDE EFFECTS AT THIS TIME. PATIENT STATES THAT SHE RAN OUT OF MEDICATION AND DID TAKE A TRAMADOL.. -. FALL RISK SCREENING: SCREENING : NO FALLS REPORTED IN THE LAST YEAR. PAIN SCREENING: PATIENT HAS A COMPLAINT OF ACUTE OR CHRONIC PAIN :YES LOCATION OF PAIN:NECK, UPPER BACK INTENSITY OF PAIN (SCALE OF 1 TO 10):5 AVERAGE IS 9/10 MIDDAY WHAT DOES YOUR PAIN FEEL LIKE:ACHING DURATION:CONTINOUS, CONSTANT, AWAKENS FROM SLEEP PAIN IS INCREASED BY:ACTIVITIES, PROLONGED STANDING PAIN IS DECREASED BY:USE OF PAIN MEDICATIONS, SITTING NURSING NOTE: -. PAIN CENTER INTAKE QUESTIONS: DO YOU HAVE A HISTORY OF MRSA? :NO DO YOU TAKE A BLOOD THINNERS? :NO DO YOU HAVE ANY BLEEDING DISORDERS? :NO ANY NEW NUMBNESS OR WEAKNESS IN YOUR LEGS OR ARMS? :YES NEW RIGHT HAND NUMBNESS AND LAST THREE FINGERS ANY PACEMAKER,DEFIBRILLATOR, OR DORSAL COLUMN STIMULATOR? :NO DO YOU HAVE ANY RASHES OR OPEN SORES? :NO ARE YOU ALLERGIC TO IV DYE? :NO ARE YOU DIABETIC? :YES TYPE II ANY NEW PROBLEMS WITH YOUR MEDICATIONS? :NO HAVE YOU RECEIVED A VACCINE IN THE PAST 30 DAYS? :YES IF SO WHAT VACCINE AND WHEN? FIRST DOSE OF COVID 08/16/2020 DO YOU PLAN TO RECEIVE A VACCINE IN THE NEXT 21 DAYS? :YES 09/07/2020 SECOND COVID VACCINATION DO YOU NEED ANY PRESCRIPTION? :YES METHOCARBAMOL AND GABAPENTIN DO YOU TAKE ANY IMMUNOSUPPRESSIVE MEDICATIONS? :NO DO YOU HAVE ANY KIDNEY OR LIVER DISEASE? :NO HISTORY OF KIDNEY STONES IS THERE A CHANCE YOU COULD BE ? :NO ARE YOU BREAST FEEDING? :NO CURRENT MEDICATIONS TAKING BD ULTRA-FINE PEN NEEDLES 32G 4MM _ DIRECTED DX: E11.9 WITH LANTUS PEN TAKING AMITRIPTYLINE HCL 25 MG TABLET DIRECTED ORALLY BEFORE BEDTIME TAKING SEROQUEL 300 MG TABLET 1 TABLET AT BEDTIME ORALLY ONCE A DAY TAKING LATUDA 80 MG TABLET 1 TABLET ORALLY BEFORE BEDTIME TAKING SEROQUEL 50 MG TABLET 1 TABLET AT BEDTIME ORALLY ONCE A DAY TAKING NYSTATIN [id number] UNIT/GM POWDER 1 APPLICATION EXTERNALLY TWICE A DAY TAKING NARCAN 4 MG/0.1ML LIQUID DIRECTED NASALLY USE DIRECTED PRN FOR RESP DISTRESS WITH OPIOID USE TAKING ONETOUCH VERIO - STRIP DIRECTED IN VITRO FOUR TIMES DAILY TAKING CRESTOR 40 MG TABLET 1 TABLET ORALLY ONCE A DAY TAKING LANTUS SOLOSTAR 100 UNIT/ML SOLUTION PEN-INJECTOR 45 UNITS SUBCUTANEOUS BID TAKING HUMALOG KWIKPEN 100 UNIT/ML SOLUTION PEN-INJECTOR DIRECTED SUBCUTANEOUS PER SLIDING SCALE; MDD __#42 TAKING MONTELUKAST SODIUM 10 MG TABLET 1 TABLET ORALLY ONCE A DAY TAKING LISINOPRIL 2.5 MG TABLET 1 TABLET ORALLY ONCE A DAY TAKING JARDIANCE 25 MG TABLET 1 TABLET ORALLY ONCE A DAY TAKING SEROQUEL 100 MG TABLET 1 CAP ORALLY ONCE A DAY IN MORNING TAKING BYDUREON BCISE 2 MG/0.85ML AUTO-INJECTOR INJECT UNDER THE SKIN WEEKLY SUBCUTANEOUS WEEKLY TAKING DIFLUCAN 150 MG TAB 1 TABLET ORALLY ONCE A DAY NEEDED TAKING GABAPENTIN 800 MG TABLET 1 CAPSULE ORALLY THREE TIMES A DAY TAKING METHOCARBAMOL 750 MG TABLET 1 TABLET ORALLY THREE TIMES DAILY TAKING GLIMEPIRIDE 2 MG TABLET TAKE ONE TABLET BY MOUTH EVERY DAY WITH BREAKFAST OR FIRST MAIN MEAL ORALLY ONCE A DAY TAKING REQUIP 0.5 MG TABLET 3 TABS ORALLY ONCE A DAY BEFORE BEDTIME TAKING FENTANYL 50 MCG/HR PATCH 72 HOUR 1 PATCH TO SKIN TRANSDERMAL EVERY 72 HRS MDD=1 TAKING OXYCODONE HCL 15 MG TABLET 1 TABLET NEEDED ORALLY EVERY 6 HRS MDD 4 TAKING OMEPRAZOLE MAGNESIUM 20 MG TABLET DELAYED RELEASE 1 TABLET 30 MINUTES BEFORE MORNING MEAL ORALLY ONCE A DAY NOT-TAKING CETIRIZINE HCL 10 MG TABLET 1 TABLET ORALLY ONCE A DAY MEDICATION LIST REVIEWED AND RECONCILED WITH THE PATIENT PAST MEDICAL HISTORY DM2 DEPRESSION/ANXIETY/BIPOLAR 2 HYPERLIPIDEMIA CHRONIC BACK PAIN, FOLLOWS WITH PAINCLINIC, [facility] RECURRENT NEPHROLITHIASIS - URO MIGRAINES - 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 MORBID OBESITY NICOTINE DEP EKG 02/16 LAE, INCOMP RBBB CORDELIA 02/16 FEV1 2.65 FE DEF ANEMIA URETERAL STONE MIGRAINES RENAL LITHIASIS IRON DEFICIENCY ANEMIA VITAMIN D DEFICIENCY HEART MURMUR ALLERGIES PENICILLIN (FOR ALLERGIES USE ONLY): RASH - ALLERGY ENVIRONMENTAL: NASAL CONGESTION - ALLERGY LAMICTAL: RASH - ALLERGY METFORMIN HCL: KIDNEY FAILURE - SIDE EFFECTS SOCIAL HISTORY GENERAL: TOBACCO USE ARE YOU A:CURRENT SMOKER ARE YOU INTERESTED IN QUITTING?NOT READY TO QUIT COUNSELED THE PATIENT ON SMOKING EFFECTS, EDUCATION [id number]/04/2021 HOW MANY CIGARETTES A DAY DO YOU SMOKE?11-20 HOW SOON AFTER YOU WAKE UP DO YOU SMOKE YOUR FIRST CIGARETTE?WITHIN 5 MIN HOW OFTEN DO YOU SMOKE CIGARETTES?EVERY DAY PATIENT COUNSELED ON THE DANGERS OF TOBACCO USE AND URGED TO QUIT:01/03/2020 SMOKING CESSATION INFORMATION GIVEN09/28/2019 LATEX QUESTIONNAIRE LATEX ALLERGY : HAVE YOU EVER DEVELOPED ANY TYPE OF REACTION AFTER HANDLING LATEX PRODUCTS SUCH RUBBER GLOVES, CONDOMS, DIAPHRAGMS, BALLOONS, SOCKS, OR UNDERWEAR?NO LATEX ALLERGY : HAVE YOU EVER DEVELOPED ANY TYPE OF REACTION DURING OR AFTER DENTAL APPOINTMENT, VAGINAL/RECTAL EXAMINATION, SURGICAL PROCEDURE, OR ANY OTHER EXPOSURE?NO DATE ASKED : 06/05/2020 LATEX RISK : HAVE YOU EVER HAD ANY DIFFICULTY BREATHING OR HIVES AFTER EATING OR HANDLING ANY FRUITS, OR VEGETABLES; SUCH KIWI, BANANAS, STONE FRUITS, OR CHESTNUTSNO LATEX RISK : DO YOU HAVE A PREVIOUS PERSONAL HISTORY OF MORE THAN NINE SURGERIES, SPINA BIFIDA, OR REPEATED CATHERIZATIONS? NO LATEX RISK : ARE YOU FREQUENTLY EXPOSED TO LATEX PRODUCTS IN YOUR OCCUPATION?NO ALCOHOL USE: NO. BMI CARE GOAL FOLLOW-UP ABOVE NORMAL BMI FOLLOW-UPDIETARY MANAGEMENT EDUCATION, GUIDANCE, AND COUNSELING ALCOHOL SCREENING DID YOU HAVE A DRINK CONTAINING ALCOHOL IN THE PAST YEAR?NO POINTS0 INTERPRETATIONNEGATIVE RECREATIONAL DRUG USE DRUG USE?NO CAFFEINE CAFFEINE USE?YES HOW OFTEN AND HOW MUCH? 2 CUPS PER DAY SEXUAL HX HAD SEX IN THE LAST 12 MONTHS (VAGINAL, ORAL, OR ANAL)?NO LMP:07/20/16 HAVE YOU EVER HAD AN STD?NO HIV / HEP-C SCREENING HIV TEST OFFERED TO PATIENT:NO HEP-C TEST OFFERED TO PATIENT:NO [id number]ORO[employer]RI[employer] LANGUAGE LANGUAGES SPOKEN:ICELANDIC EDUCATION LEVEL OF EDUCATION:[employer] 8TH GRADE LEARNING BARRIERS / SPECIAL NEEDS CHANGE FROM LAST VISIT?YES BARRIERS TO LEARNING?YES COMMENTS READING HEARING IMPAIRED?NO VISION IMPAIRED?YES :CORRECTIVE LENSES COGNITIVELY IMPAIRED?NO READINESS TO LEARN?YES LEARNING PREFERENCES?YES :TAPES/VIDEOS, BOOKLETS, HANDOUTS, CLASSES, DEMONSTRATION/VERBAL INSTRUCTION, OTHER (PLEASE COMMENT) LEARNING CAPABILITIES PRESENT?YES EMOTIONAL BARRIERS?NO SPECIAL DEVICES?YES :CANE DUMPER BULK SYSTEM NEEDED?NO DOMESTIC VIOLENCE DO YOU FEEL SAFE IN YOUR ENVIRONMENT?YES OCCUPATION: DISABLED. DIET: NO CONCENTRATED SWEETS.. EXERCISE: WALKS, DAILY. MARITAL STATUS: . - PFS REFERRAL NEEDED?NO CLERGY REFERRAL NEEDED?NO PUBLIC HEALTH REFERRAL NEEDED?NO WAS THE PROVIDER NOTIFIED OF ANY PERTINENT INFO?YES HAS THE PATIENT BEEN EDUCATED REGARDING HIS/HER PLAN OF CARE?YES HAS THE PATIENT BEEN EDUCATED REGARDING PAIN, THE RISK FOR PAIN, THE IMPORTANCE OF EFFECTIVE PAIN MANAGEMENT, AND THE PAIN ASSESSMENT PROCESS?YES ADVANCE DIRECTIVE ADVANCE DIRECTIVE DISCUSSED WITH PATIENT:YES PT HAS HCP, ARIANNA LEA [phone], AND DAUGHTER BK LEA [phone] REVIEW OF SYSTEMS CONSTITUTIONAL: ANY RECENT FEVER NO . CHILLS NO . WEIGHT CHANGE OF UNKNOWN REASONS NO . GASTROENTEROLOGY: NEW UNEXPLAINABLE CHANGES IN BOWEL CONTROL NO . CONSTIPATION NO . GENITOURINARY: ANY NEW CHANGE IN BLADDER CONTROL? NO . NEUROLOGY: NEW ONSET DIZZINESS OR NEUROLOGICAL CHANGES NOT MENTIONED NO . NEW NUMBNESS OR PAIN PATTERNS NOT MENTIONED AND PERTINENT TO TODAY'S VISIT NO . CARDIOLOGY: NEW CHEST PRESSURE NO . PATIENT DENIES NO . RESPIRATORY: UNEXPLAINABLE COUGH NO . NEW SHORTNESS OF BREATH NO . VITAL SIGNS WT 225.4 LBS, HT 66 IN, BMI 36.38 INDEX, BP 119/76 MM HG, HR 117 /MIN, RR 18 /MIN, TEMP 97.2 F, OXYGEN SAT % 97%, SAFE IN ENV? (Y/N) YES, NA INITIALS AW 0906, REVIEWED BY: DELIA OH MA. EXAMINATION GENERAL EXAMINATION: GENERALNO ACUTE DISTRESS, WELL NOURISHED AND HYDRATED. PSYCHAPPROPRIATE MOOD AND AFFECT . LUNGS:CLEAR TO AUSCULTATION BILATERALLY, NO WHEEZES, RHONCHI, RALES. HEART:NO MURMURS, REGULAR RATE AND RHYTHM. ASSESSMENTS LUMBAR DISC DISEASE WITH RADICULOPATHY - M51.16 (PRIMARY), RISK: (NULL) CHRONIC USE OF OPIATE FOR THERAPEUTIC PURPOSE - Z79.891 POLYNEUROPATHY IN DISEASES CLASSIFIED ELSEWHERE - G63 CHRONIC PAIN SYNDROME - G89.4 TREATMENT LUMBAR DISC DISEASE WITH RADICULOPATHY NOTES: 40-YEAR-OLD FEMALE IN FOR CHRONIC PAIN FOLLOW-UP. THIS JEWEL BEARING GRINDER DISCUSSED USE OF TRAMADOL WITH PATIENT AND INFORMED HER THAT THIS IS A CLEAR VIOLATION OF HER NARCOTIC AGREEMENT. PATIENT WAS INFORMED THAT GOING FORWARD SHOULD THIS HAPPEN AGAIN SHE WILL BE DISCHARGED FROM THE PRACTICE AND TAPERED OFF OF HER MEDICATIONS. PATIENT EXPRESSED REMORSE REGARDING THIS DECISION AND WAS IN AGREEMENT WITH TREATMENT PLAN. GIVEN TIME TO ASK QUESTIONS AND EXPRESS CONCERNS. ISTOP REGISTRY REVIEWED AND DEMONSTRATES COMPLLIANCE. (REF #[id number] ) BRINGS IN MEDICATIONS WHICH IS APPROPRIATE FOR WHAT WAS DISPENSED. RECENT URINE TOXICOLOGY REVIEWED. NO UNAUTHORIZED MEDICATIONS. NO ILLICIT SUBSTANCES AND PRESCRIBED MEDICATIONS WERE PRESENT. CHRONIC USE OF OPIATE FOR THERAPEUTIC PURPOSE LAB: URINE TEST GROUP JAJA OH 09/06/2020 10:07:56 AM > LAST DOSE: OXYCODONE 09/06/2020 AT 0830; FENTANYL PATCH 09/03/2020 AT 6:00PM; METHOCARBAMOL 09/05/2020 AT 6:00PM; GABAPENTIN 09/05/2020; TRAMADOL 09/02/2020 AT 8PM POLYNEUROPATHY IN DISEASES CLASSIFIED ELSEWHERE REFILL GABAPENTIN TABLET, 800 MG, 1 CAPSULE, ORALLY, THREE TIMES A DAY, 30 DAYS, 90 CAPSULE, REFILLS 0 CHRONIC PAIN SYNDROME REFILL METHOCARBAMOL TABLET, 750 MG, 1 TABLET, ORALLY, THREE TIMES DAILY, 30 DAYS, 90, REFILLS 0 OTHERS CLINICAL NOTES: PATIENT SCORED A 10 ON PHQ9. BEHAVIORAL HEALTH INFORMATION PROVIDED AND PROVIDER NOTIFIED IMMEDIATELY. JAJA OH MA . PROCEDURE CODES FA211 ESTABILISHED PATIENT [facility] CHARGE DISPOSITION & COMMUNICATION FOLLOW UP 4 WEEKS (REASON: NECK PAIN ) ELECTRONICALLY SIGNED BY DARLIN AGUILERA ON 09/09/2020 AT 08:03 AM EDT DISCLAIMER : THIS IS A VISIT SUMMARY EXTRACTED FROM THE [employer] CHART. IT IS NOT A COPY OF THE [employer] PROGRESS NOTE. MTDD
== END ==
LOC: M PAIN 09:00
PROVIDERS: ATTEND Family Medicine
DX: M51.16 Intervertebral disc disorders with radiculopathy, lumbar region (principal); G63 Polyneuropathy in diseases classified elsewhere; G89.4 Chronic pain syndrome; E11.9 Type 2 diabetes mellitus without complications; G43.909 Migraine, unspecified, not intractable, without status migrainosus; F17.210 Nicotine dependence, cigarettes, uncomplicated; Z86.59 Personal history of other mental and behavioral disorders; Z88.0 Allergy status to penicillin; Z88.8 Allergy status to other drugs, medicaments and biological substances; Z79.4 Long term (current) use of insulin; Z79.891 Long term (current) use of opiate analgesic; Z79.899 Other long term (current) drug therapy

== ENCOUNTER → 2020-10-01 | Outpatient (CLI) | payer MEDICARE ==
[2020-10-01 14:31] LABS: ALBUMIN 3.5 GM/DL (3.2-5.2); ALT/SGPT 50 U/L (12-78); BILIRUBIN,TOTAL 0.6 MG/DL (0.2-1.0); BLOOD UREA NITROGEN 7 MG/DL (7-18); CALCIUM LEVEL 9.8 MG/DL (8.5-10.1); CARBON DIOXIDE LEVEL 29 MEQ/L (21-32); CHLORIDE LEVEL 105 MEQ/L (98-107); CHOLESTEROL LEVEL 356 MG/DL (<200); CHOLESTEROL RISK RATIO 8.279 (<5); CREATININE FOR GFR 0.84 MG/DL (0.55-1.30); GLOMERULAR FILTRATION RATE > 60.0 (>60); GLUCOSE, FASTING 172 MG/DL (70-100); HDL CHOLESTEROL 43 MG/DL (>40); HEMOGLOBIN A1c 10.3 %; LDL CHOLESTEROL 243 MG/DL (<100); NON-HDL-C 313 MG/DL; POTASSIUM SERUM 4.4 MEQ/L (3.5-5.1); SODIUM LEVEL 140 MEQ/L (136-145); TOTAL PROTEIN 7.2 GM/DL (6.4-8.2); TRIGLYCERIDES LEVEL 349 MG/DL (<150)
[2020-10-01 14:38] LABS: CREATININE, URINE 47.4 MG/DL; MALB URINE SIEMENS 8.7 MG/L; MAU/CREAT RATIO 18.3 MCG/MG (0.0-30.0)
== END ==
LOC: M WUC 12:11
PROVIDERS: ATTEND Family Medicine
DX: E11.65 Type 2 diabetes mellitus with hyperglycemia (principal); E78.2 Mixed hyperlipidemia

== ENCOUNTER → 2020-10-04 | Outpatient (CLI) | payer MEDICARE ==
--- NOTE | 2020-10-09 02:39 | ECWPNPC ---
PATIENT NAME: VASYL LEA : 1980 GENDER: FEMALE VISIT DATE: 10/04/2020 DISCHARGE DATE: 10/04/2044 VISIT LOCKED DATE TIME: PHYSICIAN: TOMEKA CABRERA PHYSICIAN PAGER NO: ACTIVE RESOURCE: TOMEKA CABRERA REASON FOR APPOINTMENT 1. NECK PAIN HISTORY OF PRESENT ILLNESS GENERAL: HPI 40-YEAR-OLD FEMALE IN FOR CHRONIC PAIN FOLLOW-UP. SHE RATES HER PAIN CURRENTLY AT A 4-10 AND DESCRIBES IT TENDER AND SHOOTING. SHE FEELS HER MEDICATIONS ARE HELPFUL AND DENIES MED SIDE EFFECTS AT THIS TIME.. -. FALL RISK SCREENING: SCREENING PATIENT STATED THAT SHE SLEEP WALK AND DOES NOT KNOW IF SHE DID . PAIN SCREENING: PATIENT HAS A COMPLAINT OF ACUTE OR CHRONIC PAIN :YES LOCATION OF PAIN:NECK, LOW BACK INTENSITY OF PAIN (SCALE OF 1 TO 10):4 WHAT DOES YOUR PAIN FEEL LIKE:TENDER, SHOOTING DURATION:CONTINOUS, CONSTANT, ALL DAY PAIN IS INCREASED BY:ACTIVITIES, PROLONGED STANDING PAIN IS DECREASED BY:USE OF PAIN MEDICATIONS, OTHERS RESTING NURSING NOTE: -. PAIN CENTER INTAKE QUESTIONS: DO YOU HAVE A HISTORY OF MRSA? :NO DO YOU TAKE A BLOOD THINNERS? :NO DO YOU HAVE ANY BLEEDING DISORDERS? :NO ANY NEW NUMBNESS OR WEAKNESS IN YOUR LEGS OR ARMS? :YES NEW RIGHT HAND NUMBNESS AND LAST THREE FINGERS ANY PACEMAKER,DEFIBRILLATOR, OR DORSAL COLUMN STIMULATOR? :NO DO YOU HAVE ANY RASHES OR OPEN SORES? :NO ARE YOU ALLERGIC TO IV DYE? :NO ARE YOU DIABETIC? :YES TYPE II ANY NEW PROBLEMS WITH YOUR MEDICATIONS? :NO HAVE YOU RECEIVED A VACCINE IN THE PAST 30 DAYS? :YES IF SO WHAT VACCINE AND WHEN? FIRST DOSE OF COVID 08/16/2020 DO YOU PLAN TO RECEIVE A VACCINE IN THE NEXT 21 DAYS? :YES 09/07/2020 SECOND COVID VACCINATION DO YOU NEED ANY PRESCRIPTION? :YES METHOCARBAMOL AND GABAPENTIN DO YOU TAKE ANY IMMUNOSUPPRESSIVE MEDICATIONS? :NO DO YOU HAVE ANY KIDNEY OR LIVER DISEASE? :YES HISTORY OF KIDNEY STONES IS THERE A CHANCE YOU COULD BE ? :NO ARE YOU BREAST FEEDING? :NO CURRENT MEDICATIONS TAKING BD ULTRA-FINE PEN NEEDLES 32G 4MM _ DIRECTED DX: E11.9 WITH LANTUS PEN TAKING NYSTATIN [id number] UNIT/GM POWDER 1 APPLICATION EXTERNALLY TWICE A DAY TAKING ONETOUCH VERIO - STRIP DIRECTED IN VITRO FOUR TIMES DAILY TAKING AMITRIPTYLINE HCL 25 MG TABLET DIRECTED ORALLY BEFORE BEDTIME TAKING SEROQUEL 300 MG TABLET 1 TABLET AT BEDTIME ORALLY ONCE A DAY TAKING LATUDA 80 MG TABLET 1 TABLET ORALLY BEFORE BEDTIME TAKING SEROQUEL 50 MG TABLET 1 TABLET AT BEDTIME ORALLY ONCE A DAY TAKING LANTUS SOLOSTAR 100 UNIT/ML SOLUTION PEN-INJECTOR 45 UNITS SUBCUTANEOUS BID TAKING HUMALOG KWIKPEN 100 UNIT/ML SOLUTION PEN-INJECTOR DIRECTED SUBCUTANEOUS PER SLIDING SCALE; MDD __#42 TAKING MONTELUKAST SODIUM 10 MG TABLET 1 TABLET ORALLY ONCE A DAY TAKING LISINOPRIL 2.5 MG TABLET 1 TABLET ORALLY ONCE A DAY TAKING JARDIANCE 25 MG TABLET 1 TABLET ORALLY ONCE A DAY TAKING BYDUREON BCISE 2 MG/0.85ML AUTO-INJECTOR INJECT UNDER THE SKIN WEEKLY SUBCUTANEOUS WEEKLY TAKING GLIMEPIRIDE 2 MG TABLET TAKE ONE TABLET BY MOUTH EVERY DAY WITH BREAKFAST OR FIRST MAIN MEAL ORALLY ONCE A DAY TAKING GABAPENTIN 800 MG TABLET 1 CAPSULE ORALLY THREE TIMES A DAY TAKING METHOCARBAMOL 750 MG TABLET 1 TABLET ORALLY THREE TIMES DAILY TAKING SEROQUEL 100 MG TABLET 1 CAP ORALLY ONCE A DAY IN MORNING TAKING FENTANYL 50 MCG/HR PATCH 72 HOUR 1 PATCH TO SKIN TRANSDERMAL EVERY 72 HRS MDD=1 TAKING NARCAN 4 MG/0.1ML LIQUID DIRECTED NASALLY USE DIRECTED PRN FOR RESP DISTRESS WITH OPIOID USE TAKING OXYCODONE HCL 15 MG TABLET 1 TABLET NEEDED ORALLY EVERY 6 HRS MDD 4 TAKING ZYRTEC ALLERGY 10 MG TABLET 1 TABLET ORALLY ONCE A DAY TAKING NICODERM CQ 14 MG/24HR PATCH 24 HOUR 1 PATCH TO SKIN TRANSDERMAL ONCE A DAY TAKING TEST STRIPS - DIRECTED DX E11.65; QID TAKING OMEPRAZOLE MAGNESIUM 20 MG TABLET DELAYED RELEASE 1 TABLET 30 MINUTES BEFORE MORNING MEAL ORALLY ONCE A DAY TAKING REQUIP 0.5 MG TABLET 3 TABS ORALLY ONCE A DAY BEFORE BEDTIME TAKING CRESTOR 40 MG TABLET 1 TABLET ORALLY ONCE A DAY MEDICATION LIST REVIEWED AND RECONCILED WITH THE PATIENT PAST MEDICAL HISTORY DM2 DEPRESSION/ANXIETY/BIPOLAR 2 - TLS HYPERLIPIDEMIA CHRONIC BACK PAIN, FOLLOWS WITH PAINCLINIC, SMC RECURRENT NEPHROLITHIASIS - URO MIGRAINES - 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 MORBID OBESITY NICOTINE DEP EKG 02/16 LAE, INCOMP RBBB CORDELIA 02/16 FEV1 2.65 FE DEF ANEMIA URETERAL STONE MIGRAINES RENAL LITHIASIS IRON DEFICIENCY ANEMIA VITAMIN D DEFICIENCY HEART MURMUR RLS ALLERGIES PENICILLIN (FOR ALLERGIES USE ONLY): RASH - ALLERGY ENVIRONMENTAL: NASAL CONGESTION - ALLERGY LAMICTAL: RASH - ALLERGY METFORMIN HCL: KIDNEY FAILURE - SIDE EFFECTS SOCIAL HISTORY GENERAL: TOBACCO USE ARE YOU A:CURRENT SMOKER ARE YOU INTERESTED IN QUITTING?NOT READY TO QUIT COUNSELED THE PATIENT ON SMOKING EFFECTS, EDUCATION [id number]/02/2021 HOW MANY CIGARETTES A DAY DO YOU SMOKE?11-20 HOW SOON AFTER YOU WAKE UP DO YOU SMOKE YOUR FIRST CIGARETTE?WITHIN 5 MIN HOW OFTEN DO YOU SMOKE CIGARETTES?EVERY DAY PATIENT COUNSELED ON THE DANGERS OF TOBACCO USE AND URGED TO QUIT:10/02/2020 SMOKING CESSATION INFORMATION GIVEN10/02/2020 LATEX QUESTIONNAIRE LATEX ALLERGY : HAVE YOU EVER DEVELOPED ANY TYPE OF REACTION AFTER HANDLING LATEX PRODUCTS SUCH RUBBER GLOVES, CONDOMS, DIAPHRAGMS, BALLOONS, SOCKS, OR UNDERWEAR?NO LATEX ALLERGY : HAVE YOU EVER DEVELOPED ANY TYPE OF REACTION DURING OR AFTER DENTAL APPOINTMENT, VAGINAL/RECTAL EXAMINATION, SURGICAL PROCEDURE, OR ANY OTHER EXPOSURE?NO LATEX RISK : HAVE YOU EVER HAD ANY DIFFICULTY BREATHING OR HIVES AFTER EATING OR HANDLING ANY FRUITS, OR VEGETABLES; SUCH KIWI, BANANAS, STONE FRUITS, OR CHESTNUTSNO LATEX RISK : DO YOU HAVE A PREVIOUS PERSONAL HISTORY OF MORE THAN NINE SURGERIES, SPINA BIFIDA, OR REPEATED CATHERIZATIONS? NO LATEX RISK : ARE YOU FREQUENTLY EXPOSED TO LATEX PRODUCTS IN YOUR OCCUPATION?NO DATE ASKED : 10/04/2020 ALCOHOL USE: NO. BMI CARE GOAL FOLLOW-UP ABOVE NORMAL BMI FOLLOW-UPDIETARY MANAGEMENT EDUCATION, GUIDANCE, AND COUNSELING ALCOHOL SCREENING DID YOU HAVE A DRINK CONTAINING ALCOHOL IN THE PAST YEAR?NO POINTS0 INTERPRETATIONNEGATIVE RECREATIONAL DRUG USE DRUG USE?NO CAFFEINE CAFFEINE USE?YES HOW OFTEN AND HOW MUCH? 2 CUPS PER DAY SEXUAL HX HAD SEX IN THE LAST 12 MONTHS (VAGINAL, ORAL, OR ANAL)?NO LMP:07/20/16 HAVE YOU EVER HAD AN STD?NO HIV / HEP-C SCREENING HIV TEST OFFERED TO PATIENT:NO HEP-C TEST OFFERED TO PATIENT:NO WORSHIP [id number] SABIANIST LANGUAGE LANGUAGES SPOKEN:NICARAGUAN EDUCATION LEVEL OF EDUCATION:[employer] 8TH GRADE LEARNING BARRIERS / SPECIAL NEEDS CHANGE FROM LAST VISIT?YES BARRIERS TO LEARNING?YES COMMENTS READING HEARING IMPAIRED?NO VISION IMPAIRED?YES :CORRECTIVE LENSES COGNITIVELY IMPAIRED?NO READINESS TO LEARN?YES LEARNING PREFERENCES?YES :TAPES/VIDEOS, BOOKLETS, HANDOUTS, CLASSES, DEMONSTRATION/VERBAL INSTRUCTION, OTHER (PLEASE COMMENT) LEARNING CAPABILITIES PRESENT?YES EMOTIONAL BARRIERS?NO SPECIAL DEVICES?YES :CANE NEEDED WINE MAKER NEEDED?NO DOMESTIC VIOLENCE DO YOU FEEL SAFE IN YOUR ENVIRONMENT?YES OCCUPATION: DISABLED. DIET: NO CONCENTRATED SWEETS.. EXERCISE: WALKS, DAILY. MARITAL STATUS: . - PFS REFERRAL NEEDED?NO CLERGY REFERRAL NEEDED?NO PUBLIC HEALTH REFERRAL NEEDED?NO WAS THE PROVIDER NOTIFIED OF ANY PERTINENT INFO?YES HAS THE PATIENT BEEN EDUCATED REGARDING HIS/HER PLAN OF CARE?YES HAS THE PATIENT BEEN EDUCATED REGARDING PAIN, THE RISK FOR PAIN, THE IMPORTANCE OF EFFECTIVE PAIN MANAGEMENT, AND THE PAIN ASSESSMENT PROCESS?YES ADVANCE DIRECTIVE ADVANCE DIRECTIVE DISCUSSED WITH PATIENT:YES PT HAS HCP, ARIANNA LEA [phone], AND DAUGHTER BK LEA [phone] REVIEW OF SYSTEMS CONSTITUTIONAL: ANY RECENT FEVER NO . CHILLS NO . WEIGHT CHANGE OF UNKNOWN REASONS NO . GASTROENTEROLOGY: NEW UNEXPLAINABLE CHANGES IN BOWEL CONTROL NO . CONSTIPATION NO . GENITOURINARY: ANY NEW CHANGE IN BLADDER CONTROL? NO . NEUROLOGY: NEW ONSET DIZZINESS OR NEUROLOGICAL CHANGES NOT MENTIONED NO . NEW NUMBNESS OR PAIN PATTERNS NOT MENTIONED AND PERTINENT TO TODAY'S VISIT NO . CARDIOLOGY: NEW CHEST PRESSURE NO . PATIENT DENIES NO . RESPIRATORY: UNEXPLAINABLE COUGH NO . NEW SHORTNESS OF BREATH NO . VITAL SIGNS WT 223 LBS, HT 66 IN, BMI 35.99 INDEX, BP 120/74 MM HG, HR 117 REST, RR 18 /MIN, TEMP 97.6 F, OXYGEN SAT % 97, SAFE IN ENV? (Y/N) YEST.ELIZA MOREIRA. EXAMINATION GENERAL EXAMINATION: GENERALNO ACUTE DISTRESS, WELL NOURISHED AND HYDRATED. PSYCHAPPROPRIATE MOOD AND AFFECT . LUNGS:CLEAR TO AUSCULTATION BILATERALLY, NO WHEEZES, RHONCHI, RALES. HEART:NO MURMURS, REGULAR RATE AND RHYTHM. ASSESSMENTS SPONDYLOSIS OF CERVICAL REGION WITHOUT MYELOPATHY OR RADICULOPATHY - M47.812 (PRIMARY) POLYNEUROPATHY IN DISEASES CLASSIFIED ELSEWHERE - G63 CHRONIC PAIN SYNDROME - G89.4 TREATMENT SPONDYLOSIS OF CERVICAL REGION WITHOUT MYELOPATHY OR RADICULOPATHY NOTES: 40-YEAR-OLD FEMALE IN FOR CHRONIC PAIN FOLLOW-UP. GIVEN PRESENTING SYMPTOMS RECOMMEND CONTINUATION OF CURRENT MEDICATION REGIMEN WITH FOLLOW-UP IN 3 MONTHS. PATIENT HAS EXPRESSED UNDERSTANDING OF AND WAS IN AGREEMENT WITH TREATMENT PLAN. GIVEN TIME ASKED QUESTIONS AND EXPRESS CONCERNS. ISTOP REGISTRY REVIEWED AND DEMONSTRATES COMPLLIANCE. (REF #[id number] ) BRINGS IN MEDICATIONS WHICH IS APPROPRIATE FOR WHAT WAS DISPENSED. RECENT URINE TOXICOLOGY REVIEWED. NO UNAUTHORIZED MEDICATIONS. NO ILLICIT SUBSTANCES AND PRESCRIBED MEDICATIONS WERE PRESENT. POLYNEUROPATHY IN DISEASES CLASSIFIED ELSEWHERE REFILL GABAPENTIN TABLET, 800 MG, 1 CAPSULE, ORALLY, THREE TIMES A DAY CHRONIC PAIN SYNDROME REFILL METHOCARBAMOL TABLET, 750 MG, 1 TABLET, ORALLY, THREE TIMES DAILY PROCEDURE CODES FA211 ESTABILISHED PATIENT [facility] CHARGE DISPOSITION & COMMUNICATION FOLLOW UP 3 MONTHS (REASON: NECK PAIN) ELECTRONICALLY SIGNED BY DARLIN AGUILERA ON 10/08/2020 AT 08:26 AM EDT DISCLAIMER : THIS IS A VISIT SUMMARY EXTRACTED FROM THE [employer] CHART. IT IS NOT A COPY OF THE [employer] PROGRESS NOTE. MTDD
== END ==
LOC: M PAIN 09:30
PROVIDERS: ATTEND Family Medicine
DX: M47.812 Spondylosis without myelopathy or radiculopathy, cervical region (principal); G63 Polyneuropathy in diseases classified elsewhere; G89.4 Chronic pain syndrome; E11.9 Type 2 diabetes mellitus without complications; G43.909 Migraine, unspecified, not intractable, without status migrainosus; G25.81 Restless legs syndrome; F17.210 Nicotine dependence, cigarettes, uncomplicated; Z86.59 Personal history of other mental and behavioral disorders; Z88.0 Allergy status to penicillin; Z88.8 Allergy status to other drugs, medicaments and biological substances; Z79.4 Long term (current) use of insulin; Z79.891 Long term (current) use of opiate analgesic; Z79.899 Other long term (current) drug therapy

== ENCOUNTER → 2020-11-21 | Outpatient (REF) | payer MEDICARE | LOC: M SFHCWAGY 19:21 | PROVIDERS: ATTEND Advanced Practice Midwife | DX: Z12.4 Encounter for screening for malignant neoplasm of cervix (principal) | CPT/HCPCS: 87624; G0101; G0123 ==

== ENCOUNTER → 2020-11-21 | Outpatient (REF) | payer MEDICARE | LOC: M PLALAB 15:10 | PROVIDERS: ATTEND Advanced Practice Midwife | DX: Z12.4 Encounter for screening for malignant neoplasm of cervix (principal) ==

== ENCOUNTER → 2021-02-25 | Outpatient (REF) | payer MEDICARE ==
[2021-02-25 17:54] LABS: APPEARANCE, URINE CLOUDY (CLEAR); BACTERIA, URINE AUTO 1+ (NEGATIVE); BILIRUBIN, URINE AUTO NEGATIVE (NEGATIVE); BLOOD, URINE BLOOD NEGATIVE (NEGATIVE); COLOR, URINE YELLOW (YELLOW); GLUCOSE, URINE (UA) AUTO 3+ mg/dL (NEGATIVE); KETONE, URINE AUTO NEGATIVE (NEGATIVE); LEUKOCYTE ESTERASE, URINE AUTO TRACE (NEGATIVE); NITRITE, URINE AUTO NEGATIVE (NEGATIVE); PROTEIN, URINE AUTO NEGATIVE (NEGATIVE); RBC, URINE AUTO 2 /HPF (0-3); SPECIFIC GRAVITY URINE AUTO 1.031 (1.002-1.035); SQUAMOUS EPITHELIAL CELL UR AU 7 /HPF (0-6); UROBILINOGEN, URINE AUTO 0.2 mg/dL (0.0-2.0); WBC, URINE AUTO 27 /HPF (0-3)
== END ==
LOC: M SFHCPLAZ 16:55
PROVIDERS: ATTEND Physician Assistant Medical
DX: R30.0 Dysuria (principal); Z23 Encounter for immunization
CPT/HCPCS: 51798; 81001; 81002; 87088; 87186; 90682; G0008; G0463

== ENCOUNTER → 2021-03-07 | Outpatient (CLI) | payer MEDICARE | LOC: M PAIN 10:00 | PROVIDERS: ATTEND Anesthesiology | DX: G89.4 Chronic pain syndrome (principal); M96.1 Postlaminectomy syndrome, not elsewhere classified; E11.9 Type 2 diabetes mellitus without complications; F17.210 Nicotine dependence, cigarettes, uncomplicated; E66.01 Morbid (severe) obesity due to excess calories; Z68.41 Body mass index [BMI] 40.0-44.9, adult; Z79.4 Long term (current) use of insulin; Z79.891 Long term (current) use of opiate analgesic; Z79.899 Other long term (current) drug therapy ==

== ENCOUNTER → 2021-04-01 | Outpatient (CLI) | payer MEDICARE ==
[~2021-04-01] MED LIST changes: -LATU40TA PO; +LATU40TA2 PO; +OMEGA-3 1000MG CAPSULE ONE
== END ==
LOC: M PLAIMG 13:20
PROVIDERS: ATTEND Anesthesiology
DX: M96.1 Postlaminectomy syndrome, not elsewhere classified (principal)

== ENCOUNTER → 2021-06-20 | Outpatient (CLI) | payer MEDICARE ==
[~2021-06-20] MED LIST changes: -OMEGA-3 1000MG CAPSULE ONE
== END ==
LOC: M PAIN 13:45
PROVIDERS: ATTEND Anesthesiology
DX: M96.1 Postlaminectomy syndrome, not elsewhere classified (principal); E11.9 Type 2 diabetes mellitus without complications; G43.909 Migraine, unspecified, not intractable, without status migrainosus; G25.81 Restless legs syndrome; Z86.59 Personal history of other mental and behavioral disorders; Z88.0 Allergy status to penicillin; Z88.8 Allergy status to other drugs, medicaments and biological substances; Z79.4 Long term (current) use of insulin; Z79.891 Long term (current) use of opiate analgesic; Z79.899 Other long term (current) drug therapy

== ENCOUNTER 2021-08-27 09:30 | Emergency (ER) | payer MEDICARE ==
[~2021-08-27] VITALS: Ht 167.6 cm; Wt 101.0 kg
[2021-08-27] MEDS ORDERED: GLIM2TAB29 (09:41)
[2021-08-27] MEDS ORDERED: HUMA100I5 (09:41)
[2021-08-27] MEDS ORDERED: LATU80TA2 (09:41)
[2021-08-27] MEDS ORDERED: METF-838 (09:41)
[2021-08-27] MEDS ORDERED: QUET300T2 (09:41)
[2021-08-27] MEDS ORDERED: QUET100T2 (09:41)
[2021-08-27] MEDS ORDERED: QUET50TA4 (09:41)
[2021-08-27] MEDS ORDERED: NORT25CA2 PO (09:41)
[2021-08-27] MEDS ORDERED: ONDANSETRON 4MG/2ML VIAL IV ONE (13:20)
[2021-08-27] MEDS ORDERED: KETOROLAC 30 MG/ML 1ML VIAL IV ONE (13:20)
[2021-08-27] MEDS ORDERED: NS 1,000 ML IV ONE (13:20)
[2021-08-27 13:43] LABS: BASO # 0.1 10^3/uL (0.0-0.2); BASO % 0.8 % (0.0-1.0); EOS # 0.3 10^3/uL (0.0-0.5); EOS % 2.3 % (0.0-3.0); HEMATOCRIT 50.4 % (36.0-47.0); LYMPH # 3.4 10^3/uL (1.5-5.0); LYMPH % 28.4 % (24.0-44.0); MEAN CORPUSCULAR HEMOGLOBIN 30.4 pg (27.0-33.0); MEAN CORPUSCULAR HGB CONC 33.7 g/dl (32.0-36.5); MEAN CORPUSCULAR VOLUME 90.2 fl (80.0-96.0); MONO # 0.5 10^3/uL (0.0-0.8); MONO % 4.4 % (2.0-8.0); NEUTROPHILS # 7.5 10^3/uL (1.5-8.5); NEUTROPHILS % 63.3 % (36.0-66.0); PLATELET COUNT, AUTOMATED 205 10^3/uL (150-450); RED BLOOD COUNT 5.59 10^6/uL (4.00-5.40); WHITE BLOOD COUNT 11.8 10^3/uL (4.0-10.0)
[2021-08-27 14:06] LABS: ALBUMIN 3.6 GM/DL (3.2-5.2); ALT/SGPT 38 U/L (12-78); BILIRUBIN,DIRECT 0.1 MG/DL (0.0-0.2); BILIRUBIN,TOTAL 0.3 MG/DL (0.2-1.0); BLOOD UREA NITROGEN 7 MG/DL (7-18); C REACTIVE PROTEIN QUANTITATIV 0.87 MG/DL (0.00-0.30); CALCIUM LEVEL 10.1 MG/DL (8.5-10.1); CARBON DIOXIDE LEVEL 29 MEQ/L (21-32); CHLORIDE LEVEL 107 MEQ/L (98-107); CREATININE FOR GFR 0.75 MG/DL (0.55-1.30); GLOMERULAR FILTRATION RATE > 60.0 (>58); GLUCOSE, FASTING 130 MG/DL (70-100); LIPASE 250 U/L (73-393); POTASSIUM SERUM 4.4 MEQ/L (3.5-5.1); SODIUM LEVEL 144 MEQ/L (136-145); TOTAL PROTEIN 7.3 GM/DL (6.4-8.2)
[2021-08-27] MEDS ORDERED: ISOVUE-370 76% 100ML VIAL As Ordered ONE (14:17)
[2021-08-27 14:22] LABS: ERYTHROCYTE SEDIMENTATION RATE 32 mm/hr (0-20)
[2021-08-27] MEDS ORDERED: CIPR-249 PO (17:07)
[2021-08-27] MEDS ORDERED: ONDA4TAB6 PO (17:08)
[2021-08-27 17:18] VITALS: BP 122/75
== END 2021-08-27 17:23 | disposition home or self-care (01) ==
LOC: M ED 09:30
DX: N39.0 Urinary tract infection, site not specified (principal); E11.9 Type 2 diabetes mellitus without complications; E78.5 Hyperlipidemia, unspecified; Z87.442 Personal history of urinary calculi; F41.9 Anxiety disorder, unspecified; G43.909 Migraine, unspecified, not intractable, without status migrainosus; F32.A Depression, unspecified; F17.200 Nicotine dependence, unspecified, uncomplicated; Z88.0 Allergy status to penicillin; Z79.4 Long term (current) use of insulin; Z79.899 Other long term (current) drug therapy
CPT/HCPCS: 74177; 76856; 80048; 80076; 81001; 83690; 85025; 85652; 86140; 87088; 87186; 93976; 96361; 96374; 99284; J1885; J2405; Q9967

== ENCOUNTER → 2021-08-28 | Outpatient (REF) | payer MEDICARE ==
[~2021-08-28] MED LIST changes: +GLIM2TAB29; +HUMA100I5; +LATU80TA2; +METF-838; +NORT25CA2 PO; +ONDA4TAB6 PO; +QUET100T2; +QUET300T2; +QUET50TA4
[2021-08-28 16:57] LABS: HEMOGLOBIN A1c 10.5 %
[2021-08-28 17:07] LABS: BLOOD UREA NITROGEN 7 MG/DL (7-18); CALCIUM LEVEL 9.6 MG/DL (8.5-10.1); CARBON DIOXIDE LEVEL 28 MEQ/L (21-32); CHLORIDE LEVEL 109 MEQ/L (98-107); CREATININE FOR GFR 0.76 MG/DL (0.55-1.30); GLOMERULAR FILTRATION RATE > 60.0 (>58); GLUCOSE, FASTING 187 MG/DL (70-100); POTASSIUM SERUM 3.8 MEQ/L (3.5-5.1); SODIUM LEVEL 144 MEQ/L (136-145)
== END ==
LOC: M WUC 15:57 → M SFHCPLAZ 15:57
PROVIDERS: ATTEND Family Medicine
DX: E11.65 Type 2 diabetes mellitus with hyperglycemia (principal)

== ENCOUNTER → 2021-12-15 | Outpatient (CLI) | payer MEDICARE | LOC: M EKG 09:41 | PROVIDERS: ATTEND Registered Nurse | DX: F31.9 Bipolar disorder, unspecified (principal) ==

== ENCOUNTER → 2021-12-30 | Outpatient (CLI) | payer MEDICARE | LOC: M PAIN 11:00 | PROVIDERS: ATTEND Nurse Practitioner Family | DX: M96.1 Postlaminectomy syndrome, not elsewhere classified (principal); G89.29 Other chronic pain; E11.9 Type 2 diabetes mellitus without complications; G43.909 Migraine, unspecified, not intractable, without status migrainosus; G25.81 Restless legs syndrome; F17.210 Nicotine dependence, cigarettes, uncomplicated; Z86.59 Personal history of other mental and behavioral disorders; Z88.0 Allergy status to penicillin; Z88.8 Allergy status to other drugs, medicaments and biological substances; Z79.4 Long term (current) use of insulin; Z79.891 Long term (current) use of opiate analgesic; Z79.899 Other long term (current) drug therapy ==

== ENCOUNTER → 2022-04-09 | Outpatient (CLI) | payer MEDICARE | LOC: M PAIN 10:45 | PROVIDERS: ATTEND Nurse Practitioner Family | DX: M96.1 Postlaminectomy syndrome, not elsewhere classified (principal); G89.29 Other chronic pain; E11.9 Type 2 diabetes mellitus without complications; G43.909 Migraine, unspecified, not intractable, without status migrainosus; G25.81 Restless legs syndrome; F17.210 Nicotine dependence, cigarettes, uncomplicated; Z86.59 Personal history of other mental and behavioral disorders; Z88.0 Allergy status to penicillin; Z88.8 Allergy status to other drugs, medicaments and biological substances; Z79.4 Long term (current) use of insulin; Z79.84 Long term (current) use of oral hypoglycemic drugs; Z79.891 Long term (current) use of opiate analgesic; Z79.899 Other long term (current) drug therapy ==

== ENCOUNTER → 2022-04-29 | Outpatient (CLI) | payer MEDICARE ==
[2022-04-29 12:54] LABS: BASO # 0.1 10^3/uL (0.0-0.2); BASO % 0.8 % (0.0-1.0); EOS # 0.5 10^3/uL (0.0-0.5); HEMATOCRIT 50.5 % (36.0-47.0); LYMPH # 2.9 10^3/uL (1.5-5.0); LYMPH % 29.3 % (24.0-44.0); MEAN CORPUSCULAR HEMOGLOBIN 29.7 pg (27.0-33.0); MEAN CORPUSCULAR HGB CONC 31.7 g/dl (32.0-36.5); MEAN CORPUSCULAR VOLUME 93.9 fl (80.0-96.0); MONO # 0.7 10^3/uL (0.0-0.8); MONO % 7.1 % (2.0-8.0); NEUTROPHILS # 5.7 10^3/uL (1.5-8.5); NEUTROPHILS % 57.4 % (36.0-66.0); PLATELET COUNT, AUTOMATED 172 10^3/uL (150-450); RED BLOOD COUNT 5.38 10^6/uL (4.00-5.40); WHITE BLOOD COUNT 9.9 10^3/uL (4.0-10.0)
[2022-04-29 13:16] LABS: ALBUMIN 3.5 G/DL (3.2-5.2); ALKALINE PHOSPHATASE 94 U/L (46-116); ALT/SGPT 43 U/L (7.0-40); AST/SGOT 43 U/L (<34); BILIRUBIN,TOTAL 0.4 MG/DL (0.3-1.2); BLOOD UREA NITROGEN 13 MG/DL (9-23); CALCIUM LEVEL 9.4 MG/DL (8.5-10.1); CARBON DIOXIDE LEVEL 33 MMOL/L (20-31); CHLORIDE LEVEL 101 MMOL/L (98-107); CREATININE FOR GFR 0.86 MG/DL (0.55-1.30); GLOMERULAR FILTRATION RATE > 60.0 (>58); GLUCOSE, FASTING 96 MG/DL (60-100); POTASSIUM SERUM 4.4 MMOL/L (3.5-5.1); SODIUM LEVEL 139 MMOL/L (136-145); TOTAL PROTEIN 6.7 G/DL (5.7-8.2)
[2022-04-29 13:50] LABS: HEMOGLOBIN A1c 7.7 % (4.0-6.0)
== END ==
LOC: M WUC 09:56
PROVIDERS: ATTEND Physician Assistant
DX: E11.65 Type 2 diabetes mellitus with hyperglycemia (principal)

== ENCOUNTER → 2022-04-30 | Outpatient (REF) | payer MEDICARE ==
[2022-04-30 13:44] LABS: APPEARANCE, URINE MANUAL CLOUDY (CLEAR); COLOR, URINE MANUAL YELLOW (YELLOW)
[2022-04-30 13:46] LABS: BILIRUBIN, URINE MANUAL NEGATIVE (NEGATIVE); GLUCOSE, URINE (UA) MANUAL 4+(1000 MG/DL) mg/dL (NEGATIVE); KETONE, URINE MANUAL NEGATIVE (NEGATIVE); NITRITE, URINE MANUAL TRACE (NEGATIVE); PROTEIN, URINE MANUAL TRACE mg/dL (NEGATIVE); UROBILINOGEN, URINE MANUAL NORMAL (NORMAL)
[2022-04-30 13:47] LABS: BLOOD URINE MANUAL POSITIVE (NEGATIVE); LEUKOCYTE ESTERASE, URINE MAN POSITIVE (NEGATIVE)
[2022-04-30 13:52] LABS: WBC, URINE 40-50 /hpf (0-3)
[2022-04-30 13:53] LABS: BACTERIA, URINE LARGE AMOUNT; HYALINE CAST, URINE NONE SEEN /lpf (0-1); SQUAMOUS EPITHELIAL CELL URINE MOD AMOUNT /hpf (SMALL AMT)
== END ==
LOC: M SFHCPLAZ 12:56
PROVIDERS: ATTEND Physician Assistant
DX: R10.9 Unspecified abdominal pain (principal)

== ENCOUNTER → 2022-06-16 | Outpatient (CLI) | payer MEDICARE ==
[2022-06-16 10:47] LABS: BASO # 0.1 10^3/uL (0.0-0.2); BASO % 0.8 % (0.0-1.0); EOS # 0.2 10^3/uL (0.0-0.5); EOS % 2.2 % (0.0-3.0); HEMATOCRIT 48.5 % (36.0-47.0); HEMOGLOBIN 15.8 g/dl (12.0-15.5); LYMPH # 2.7 10^3/uL (1.5-5.0); LYMPH % 29.8 % (24.0-44.0); MEAN CORPUSCULAR HEMOGLOBIN 29.6 pg (27.0-33.0); MEAN CORPUSCULAR HGB CONC 32.6 g/dl (32.0-36.5); MONO # 0.8 10^3/uL (0.0-0.8); MONO % 8.8 % (2.0-8.0); NEUTROPHILS # 5.2 10^3/uL (1.5-8.5); NEUTROPHILS % 57.8 % (36.0-66.0); PLATELET COUNT, AUTOMATED 206 10^3/uL (150-450); RED BLOOD COUNT 5.33 10^6/uL (4.00-5.40)
[2022-06-16 11:43] LABS: ALBUMIN 3.1 G/DL (3.2-5.2); ALKALINE PHOSPHATASE 107 U/L (46-116); ALT/SGPT 42 U/L (7.0-40); AST/SGOT 63 U/L (<34); BILIRUBIN,TOTAL 0.5 MG/DL (0.3-1.2); BLOOD UREA NITROGEN 8 MG/DL (9-23); CALCIUM LEVEL 8.7 MG/DL (8.5-10.1); CARBON DIOXIDE LEVEL 26 MMOL/L (20-31); CHLORIDE LEVEL 97 MMOL/L (98-107); CREATININE FOR GFR 0.81 MG/DL (0.55-1.30); FREE T4 1.18 NG/DL (0.89-1.76); GLOMERULAR FILTRATION RATE > 60.0 (>58); GLUCOSE, FASTING 488 MG/DL (60-100); POTASSIUM SERUM 3.7 MMOL/L (3.5-5.1); SODIUM LEVEL 131 MMOL/L (136-145); THYROID STIMULATING HORMONE 6.242 uIU/ML (0.55-4.78)
[2022-06-16 12:43] LABS: TOTAL PROTEIN 6.3 G/DL (5.7-8.2)
== END ==
LOC: M PLALAB 07:45
PROVIDERS: ATTEND Physician Assistant
DX: R41.0 Disorientation, unspecified (principal)

== ENCOUNTER → 2022-06-26 | Outpatient (CLI) | payer MEDICARE ==
[2022-06-26 17:12] LABS: APPEARANCE, URINE CLOUDY (CLEAR); BACTERIA, URINE AUTO 1+ (NEGATIVE); BILIRUBIN, URINE AUTO NEGATIVE (NEGATIVE); BLOOD, URINE BLOOD NEGATIVE (NEGATIVE); COLOR, URINE YELLOW (YELLOW); GLUCOSE, URINE (UA) AUTO 3+ mg/dL (NEGATIVE); KETONE, URINE AUTO TRACE mg/dL (NEGATIVE); LEUKOCYTE ESTERASE, URINE AUTO NEGATIVE (NEGATIVE); MUCUS, URINE SMALL (NEGATIVE); NITRITE, URINE AUTO NEGATIVE (NEGATIVE); PROTEIN, URINE AUTO NEGATIVE (NEGATIVE); RBC, URINE AUTO 2 /HPF (0-3); SPECIFIC GRAVITY URINE AUTO 1.031 (1.002-1.035); SQUAMOUS EPITHELIAL CELL UR AU 14 /HPF (0-6); UROBILINOGEN, URINE AUTO 0.2 mg/dL (0.0-2.0); WBC, URINE AUTO 12 /HPF (0-3)
[2022-06-26 18:14] LABS: ALBUMIN 3.6 G/DL (3.2-5.2); ALKALINE PHOSPHATASE 88 U/L (46-116); ALT/SGPT 32 U/L (7.0-40); AST/SGOT 41 U/L (<34); BILIRUBIN,TOTAL 0.3 MG/DL (0.3-1.2); BLOOD UREA NITROGEN 12 MG/DL (9-23); CALCIUM LEVEL 9.5 MG/DL (8.5-10.1); CARBON DIOXIDE LEVEL 29 MMOL/L (20-31); CHLORIDE LEVEL 106 MMOL/L (98-107); CREATININE FOR GFR 0.77 MG/DL (0.55-1.30); GLOMERULAR FILTRATION RATE > 60.0 (>58); GLUCOSE, FASTING 109 MG/DL (60-100); POTASSIUM SERUM 4.4 MMOL/L (3.5-5.1); SODIUM LEVEL 143 MMOL/L (136-145); TOTAL PROTEIN 6.5 G/DL (5.7-8.2)
[2022-06-26 18:15] LABS: FREE T3 3.4 PG/ML (2.3-4.2)
[2022-06-26 18:16] LABS: FREE T4 0.99 NG/DL (0.89-1.76)
[2022-06-26 18:18] LABS: THYROID PEROXIDASE ANTIBODY < 28.0 U/ML (<60.0)
[2022-06-26 18:53] LABS: HEMOGLOBIN A1c 9.2 % (4.0-6.0)
== END ==
LOC: M WUC 11:49
PROVIDERS: ATTEND Physician Assistant
DX: R73.9 Hyperglycemia, unspecified (principal); R79.89 Other specified abnormal findings of blood chemistry; Z79.899 Other long term (current) drug therapy

== ENCOUNTER → 2022-07-16 | Outpatient (CLI) | payer MEDICARE | LOC: M PAIN 14:15 | PROVIDERS: ATTEND Nurse Practitioner Family | DX: M96.1 Postlaminectomy syndrome, not elsewhere classified (principal); G89.29 Other chronic pain; E11.9 Type 2 diabetes mellitus without complications; G43.909 Migraine, unspecified, not intractable, without status migrainosus; G25.81 Restless legs syndrome; E03.9 Hypothyroidism, unspecified; F17.210 Nicotine dependence, cigarettes, uncomplicated; Z86.59 Personal history of other mental and behavioral disorders; Z88.0 Allergy status to penicillin; Z88.8 Allergy status to other drugs, medicaments and biological substances; E66.01 Morbid (severe) obesity due to excess calories; Z68.41 Body mass index [BMI] 40.0-44.9, adult; Z79.4 Long term (current) use of insulin; Z79.85 Long-term (current) use of injectable non-insulin antidiabetic drugs; Z79.890 Hormone replacement therapy; Z79.891 Long term (current) use of opiate analgesic; Z79.899 Other long term (current) drug therapy ==

== ENCOUNTER → 2022-09-03 | Outpatient (REF) | payer MEDICARE | LOC: M SFHCPLAZ 16:50 | PROVIDERS: ATTEND Physician Assistant | DX: R39.15 Urgency of urination (principal) ==

== ENCOUNTER → 2022-11-04 | Outpatient (CLI) | payer MEDICARE | LOC: M WUC 14:07 | PROVIDERS: ATTEND Nurse Practitioner Family | DX: M77.31 Calcaneal spur, right foot (principal); M79.671 Pain in right foot ==

== ENCOUNTER → 2022-12-23 | Outpatient (CLI) | payer MEDICARE ==
[2022-12-23 12:33] LABS: HEMATOCRIT 49.1 % (36.0-47.0); HEMOGLOBIN 15.4 g/dl (12.0-15.5); MEAN CORPUSCULAR HGB CONC 31.4 g/dl (32.0-36.5); MEAN CORPUSCULAR VOLUME 95.7 fl (80.0-96.0); PLATELET COUNT, AUTOMATED 209 10^3/uL (150-450); RED BLOOD COUNT 5.13 10^6/uL (4.00-5.40); WHITE BLOOD COUNT 10.7 10^3/uL (4.0-10.0)
[2022-12-23 12:44] LABS: HEMOGLOBIN A1c 6.5 % (4.0-6.0)
[2022-12-23 13:02] LABS: CREATININE, URINE 68.1 MG/DL
[2022-12-23 13:03] LABS: ALBUMIN 3.4 G/DL (3.2-5.2); ALKALINE PHOSPHATASE 111 U/L (46-116); ALT/SGPT 38 U/L (7.0-40); AST/SGOT 27 U/L (<34); BILIRUBIN,TOTAL 0.8 MG/DL (0.3-1.2); BLOOD UREA NITROGEN 12 MG/DL (9-23); CALCIUM LEVEL 9.4 MG/DL (8.5-10.1); CARBON DIOXIDE LEVEL 30 MMOL/L (20-31); CHLORIDE LEVEL 104 MMOL/L (98-107); CHOLESTEROL LEVEL 110 MG/DL (<200); CHOLESTEROL RISK RATIO 2.94 (<5); GLOMERULAR FILTRATION RATE > 60.0 (>58); GLUCOSE, FASTING 111 MG/DL (60-100); HDL CHOLESTEROL 37.3 MG/DL (>40); LDL CHOLESTEROL 34.9 MG/DL (<100); NON-HDL-C 72.7 MG/DL; POTASSIUM SERUM 3.7 MMOL/L (3.5-5.1); SODIUM LEVEL 143 MMOL/L (136-145); TOTAL PROTEIN 6.6 G/DL (5.7-8.2); TRIGLYCERIDES LEVEL 189 MG/DL (<150)
[2022-12-23 13:04] LABS: MAU/CREAT RATIO 356.8 MCG/MG (0.0-30.0)
== END ==
LOC: M WUC 09:30
PROVIDERS: ATTEND Family Medicine
DX: D75.1 Secondary polycythemia (principal); E11.65 Type 2 diabetes mellitus with hyperglycemia

== ENCOUNTER → 2023-04-06 | Outpatient (CLI) | payer MEDICARE ==
[~2023-04-06] MED LIST changes: -EFFE37.5 PO; +EFFE37.52 PO
== END ==
LOC: M WHC 13:35
PROVIDERS: ATTEND Family Medicine
DX: Z12.31 Encounter for screening mammogram for malignant neoplasm of breast (principal); N63.21 Unspecified lump in the left breast, upper outer quadrant

== ENCOUNTER → 2023-04-08 | Outpatient (CLI) | payer MEDICARE | LOC: M PAIN 14:45 | PROVIDERS: ATTEND Nurse Practitioner Family | DX: M96.1 Postlaminectomy syndrome, not elsewhere classified (principal); G89.29 Other chronic pain; F17.210 Nicotine dependence, cigarettes, uncomplicated; Z80.8 Family history of malignant neoplasm of other organs or systems; Z88.0 Allergy status to penicillin; Z88.8 Allergy status to other drugs, medicaments and biological substances; Z79.4 Long term (current) use of insulin; Z79.84 Long term (current) use of oral hypoglycemic drugs; Z79.85 Long-term (current) use of injectable non-insulin antidiabetic drugs; Z79.891 Long term (current) use of opiate analgesic; Z79.899 Other long term (current) drug therapy ==

== ENCOUNTER → 2023-04-20 | Outpatient (CLI) | payer MEDICARE | LOC: M WHC 10:32 | PROVIDERS: ATTEND Family Medicine | DX: Z12.31 Encounter for screening mammogram for malignant neoplasm of breast (principal); N63.21 Unspecified lump in the left breast, upper outer quadrant ==

== ENCOUNTER → 2023-07-29 | Outpatient (CLI) | payer MEDICARE | LOC: M PAIN 16:00 | PROVIDERS: ATTEND Nurse Practitioner Family | DX: M96.1 Postlaminectomy syndrome, not elsewhere classified (principal); Z79.891 Long term (current) use of opiate analgesic; G89.29 Other chronic pain; E11.9 Type 2 diabetes mellitus without complications; F31.9 Bipolar disorder, unspecified; F41.9 Anxiety disorder, unspecified; G43.909 Migraine, unspecified, not intractable, without status migrainosus; M51.16 Intervertebral disc disorders with radiculopathy, lumbar region; M50.10 Cervical disc disorder with radiculopathy, unspecified cervical region; E66.01 Morbid (severe) obesity due to excess calories; D50.9 Iron deficiency anemia, unspecified; E03.9 Hypothyroidism, unspecified; F17.210 Nicotine dependence, cigarettes, uncomplicated; Z68.36 Body mass index [BMI] 36.0-36.9, adult; Z88.0 Allergy status to penicillin; Z88.8 Allergy status to other drugs, medicaments and biological substances; Z79.890 Hormone replacement therapy; Z79.4 Long term (current) use of insulin; Z79.899 Other long term (current) drug therapy ==

== ENCOUNTER → 2023-08-19 | Outpatient (CLI) | payer MEDICARE | LOC: M PLARAD 07-22 10:45 | PROVIDERS: ATTEND Orthopaedic Surgery Orthopaedic Surgery of the Spine | DX: M51.26 Other intervertebral disc displacement, lumbar region (principal) ==

== ENCOUNTER 2023-11-15 21:32 | Emergency (ER) | payer MEDICARE ==
[~2023-11-15] VITALS: Ht 167.6 cm; Wt 97.3 kg
[~2023-11-15 21:32] MED LIST changes: +ONDA-282 PO; -ONDA4TAB6 PO
[2023-11-15 21:33] VITALS: BP 108/70; TEMP 97.2; O2SAT 96
== END 2023-11-15 21:48 | disposition left against medical advice (07) ==
LOC: M ED 21:32
DX: Z53.21 Procedure and treatment not carried out due to patient leaving prior to being seen by health care provider (principal)

== ENCOUNTER → 2023-12-13 | Outpatient (CLI) | payer MEDICARE ==
[~2023-12-13] MED LIST changes: +GABA-1635 PO; -GABA800T4 PO
== END ==
LOC: M PAIN 11:45
PROVIDERS: ATTEND Nurse Practitioner Family
DX: M96.1 Postlaminectomy syndrome, not elsewhere classified (principal); Z79.891 Long term (current) use of opiate analgesic; G89.29 Other chronic pain; E11.9 Type 2 diabetes mellitus without complications; F31.9 Bipolar disorder, unspecified; F41.9 Anxiety disorder, unspecified; E78.5 Hyperlipidemia, unspecified; G43.909 Migraine, unspecified, not intractable, without status migrainosus; M51.16 Intervertebral disc disorders with radiculopathy, lumbar region; M50.10 Cervical disc disorder with radiculopathy, unspecified cervical region; E66.01 Morbid (severe) obesity due to excess calories; D50.9 Iron deficiency anemia, unspecified; E03.9 Hypothyroidism, unspecified; F17.210 Nicotine dependence, cigarettes, uncomplicated; Z68.34 Body mass index [BMI] 34.0-34.9, adult; Z88.0 Allergy status to penicillin; Z88.8 Allergy status to other drugs, medicaments and biological substances; Z79.4 Long term (current) use of insulin; Z79.899 Other long term (current) drug therapy

== ENCOUNTER → 2024-05-03 | Outpatient (CLI) | payer MEDICARE, MEDICAID | LOC: M PLAIMG 12:50 | PROVIDERS: ATTEND Orthopaedic Surgery | DX: M54.50 Low back pain, unspecified (principal); N20.0 Calculus of kidney; J30.2 Other seasonal allergic rhinitis; Z86.59 Personal history of other mental and behavioral disorders; Z86.39 Personal history of other endocrine, nutritional and metabolic disease; Z86.69 Personal history of other diseases of the nervous system and sense organs; Z86.79 Personal history of other diseases of the circulatory system ==

== ENCOUNTER → 2024-05-05 | Outpatient (CLI) | payer MEDICARE | LOC: M PAIN 10:15 | PROVIDERS: ATTEND Nurse Practitioner Family | DX: M96.1 Postlaminectomy syndrome, not elsewhere classified (principal); G89.29 Other chronic pain; M54.50 Low back pain, unspecified; E11.9 Type 2 diabetes mellitus without complications; E03.9 Hypothyroidism, unspecified; Z88.0 Allergy status to penicillin; Z88.8 Allergy status to other drugs, medicaments and biological substances; Z79.890 Hormone replacement therapy; Z79.891 Long term (current) use of opiate analgesic; Z79.899 Other long term (current) drug therapy ==

== ENCOUNTER → 2024-05-17 | Outpatient (CLI) | payer MEDICARE ==
[2024-05-17 13:33] LABS: BLOOD UREA NITROGEN 6 MG/DL (9-23); CALCIUM LEVEL 9.1 MG/DL (8.5-10.1); CARBON DIOXIDE LEVEL 31 MMOL/L (20-31); CHLORIDE LEVEL 106 MMOL/L (98-107); CREATININE FOR GFR 0.67 MG/DL (0.55-1.30); CREATININE, URINE 55.8 MG/DL; GLOMERULAR FILTRATION RATE > 60.0 (>58); GLUCOSE, FASTING 159 MG/DL (60-100); MAU/CREAT RATIO 87.8 MCG/MG (0.0-30.0); POTASSIUM SERUM 3.9 MMOL/L (3.5-5.1); SODIUM LEVEL 145 MMOL/L (136-145)
[2024-05-17 13:43] LABS: HEMOGLOBIN A1c 7.2 % (4.0-6.0)
== END ==
LOC: M WUC 09:47
PROVIDERS: ATTEND Family Medicine
DX: E11.65 Type 2 diabetes mellitus with hyperglycemia (principal); R80.9 Proteinuria, unspecified; Z79.891 Long term (current) use of opiate analgesic

== ENCOUNTER 2024-05-30 20:44 | Emergency (ER) | payer MEDICARE ==
[~2024-05-30] VITALS: Ht 167.6 cm; Wt 94.2 kg
[2024-05-30 20:50] VITALS: BP 128/86; TEMP 98.5; O2SAT 96
== END 2024-05-30 21:50 | disposition left against medical advice (07) ==
LOC: M ED 20:44
DX: Z53.21 Procedure and treatment not carried out due to patient leaving prior to being seen by health care provider (principal)

== ENCOUNTER 2024-05-31 11:29 | Emergency (ER) | payer MEDICARE, MEDICAID ==
[~2024-05-31] VITALS: Ht 167.6 cm; Wt 93.2 kg
[2024-05-31 12:55] VITALS: BP 132/96; TEMP 98.5; O2SAT 96
[2024-05-31] MEDS: oxyCODONE 5MG TAB PO ONE (13:50)
== END 2024-05-31 14:08 | disposition home or self-care (01) ==
LOC: M ED 11:29
DX: F11.23 Opioid dependence with withdrawal (principal); I44.5 Left posterior fascicular block; E11.9 Type 2 diabetes mellitus without complications; G43.909 Migraine, unspecified, not intractable, without status migrainosus; F17.200 Nicotine dependence, unspecified, uncomplicated; Z88.0 Allergy status to penicillin; Z79.2 Long term (current) use of antibiotics; Z79.4 Long term (current) use of insulin; Z79.83 Long term (current) use of bisphosphonates; Z79.899 Other long term (current) drug therapy

== ENCOUNTER → 2024-12-28 | Outpatient (CLI) | payer MEDICARE, MEDICAID ==
[~2024-12-28] MED LIST changes: -AMBI10TA PO; -AMBI5TAB PO; +ZOLP-532 PO; +ZOLP-533 PO
[2024-12-28 16:45] LABS: ESTIMATED AVERAGE GLUCOSE 203.0 MG/DL (60-110)
== END ==
LOC: M LAB 13:14
PROVIDERS: ATTEND Family Medicine
DX: E11.65 Type 2 diabetes mellitus with hyperglycemia (principal)

== ENCOUNTER → 2024-12-28 | Outpatient (CLI) | payer MEDICARE, MEDICAID ==
[2024-12-28 14:41] LABS: BASO # 0.1 10^3/uL (0.0-0.2); BASO % 0.9 % (0.0-1.0); EOS # 0.5 10^3/uL (0.0-0.5); EOS % 4.8 % (0.0-3.0); LYMPH # 3.1 10^3/uL (1.5-5.0); LYMPH % 28.7 % (24.0-44.0); MONO # 0.7 10^3/uL (0.0-0.8); MONO % 6.5 % (2.0-8.0); NEUTROPHILS # 6.3 10^3/uL (1.5-8.5); NEUTROPHILS % 58.5 % (36.0-66.0); PLATELET COUNT, AUTOMATED 215 10^3/uL (150-450)
[2024-12-28 15:12] LABS: ALT/SGPT 28 U/L (7.0-40); AST/SGOT 21 U/L (<34); CALCIUM LEVEL 9.2 MG/DL (8.5-10.1); CARBON DIOXIDE LEVEL 31 MMOL/L (20-31); CHLORIDE LEVEL 107 MMOL/L (98-107); CREATININE FOR GFR 0.66 MG/DL (0.55-1.30); GLOMERULAR FILTRATION RATE > 90.0 (>58); POTASSIUM SERUM 4.7 MMOL/L (3.5-5.1); SODIUM LEVEL 141 MMOL/L (136-145)
[2024-12-28 15:13] LABS: PROLACTIN 5.86 NG/ML
[2024-12-28 15:14] LABS: TOTAL 25(OH) VITAMIN D 14.2 NG/ML (20.0-100.0)
== END ==
LOC: M EKG 13:17
PROVIDERS: ATTEND Nurse Practitioner Psychiatric/Mental Health
DX: F90.0 Attention-deficit hyperactivity disorder, predominantly inattentive type (principal); F31.32 Bipolar disorder, current episode depressed, moderate; Z79.899 Other long term (current) drug therapy

== ENCOUNTER → 2025-01-25 | Outpatient (CLI) | payer MEDICARE, MEDICAID | LOC: M WUC 12:32 | PROVIDERS: ATTEND Student in an Organized Health Care Education/Training Program | DX: M79.671 Pain in right foot (principal) ==